=== PATIENT | female | born 1930 | race Caucasian/White ===

== ENCOUNTER 2018-10-08 08:54 | Emergency (ER) | payer MEDICARE, BC ==
[~2018-10-08] VITALS: Ht 162.6 cm; Wt 54.4 kg
--- OUTSIDE RECORDS SUMMARY | 2018-10-08 08:58 | XMS REPORT ---
Author Author [facility] Address Unknown Phone Unavailable Care Team Providers Care Robotics Mechanic Name Role Phone Unavailable Unavailable Payers Payer Name Policy Type Policy Number Effective Date Expiration Date Problems This patient has no known problems. Allergies, Adverse Reactions, Alerts Allergy Name Allergy Type Status Severity Reaction(s) Onset Date Inactive Date Treating Clinician Comments No Known Allergies DA Active U 2018-09-13 00:00:00 oxycodone DA Active IA 2018-08-03 00:00:00 meperidine DA Active IA 2018-08-03 00:00:00 No Known Drug Allergies DA Active U 2018-02-23 00:00:00 oxycodone DA Active IA 2018-02-10 00:00:00 meperidine DA Active IA 2018-02-10 00:00:00 No Known Allergies DA Active U 2018-02-10 00:00:00 Medications This patient has no known medications. Results Test Description Test Time Test Comments Text Results Atomic Results Result Comments - CT C-SPINE W/O CONTRAST 2018-10-05 06:18:00 Name: BARTOLOME ARGUELLES [facility] : 1930 Age/S: 88 / F Karen Emery Unit #: [id number] Loc: [place] [address] Phys: Roselia Amor MD Acct: [id number] Dis Date: Status: REG ER PHONE #: [phone] Exam Date: 10/05/2018 0600 FAX #: [phone] Reason: fall, neck pain EXAMS: CPT CODE: [id number] CT C-SPINE W/O CONTRAST 71900 EXAM: - CT HEAD/BRAIN W/O CONT, - CT C-SPINE W/O CONTRAST Location code:C3 HISTORY: 88 years -old Female with fall, neck pain TECHNIQUE: Axial CT images from the skull base to the vertex without intravenous contrast. Coronal and sagittal reformatted images were created from the data set. Axial CT images through the cervical spine were obtained without intravenous contrast. Sagittal and coronal reformatted images were created from the da ta set. One or more of the following dose reduction techniques were used: Automated exposure control, adjustment of the mA and/or kV according to patient size, and/or utilization of iterative reconstruction technique. COMPARISON: 09/20/2018 FINDINGS: CT BRAIN: Intracranial: No abnormal brain parenchymal density. No evidence of acute infarction, intracranial hemorrhage, mass or mass effect, or abnormal extra-axial fluid collection. The ventricular system and sulci are prominent compatible cerebral volume loss.There is mild diminished attenuation involving the periventricular and subcortical white matter compatible with mild microvascular chronic ischemic changes. Vascular calcifications are present. Bones: There is no evidence of acute displaced calvarial fracture. Sinuses: The visualized portions of the paranasal sinuses of significant opacification.The mastoid air cells are clear. Orbits/Soft Tissues: The visualized orbits show no significant abnormalities. The visualized soft tissues are unremarkable. CT CERVICAL SPINE: Bones: PAGE 1 Signed Report (CONTINUED) Name: BARTOLOME ARGUELLES [facility] : 1930 Age/S: 88 / F [address] [facility] Unit #: [id number] Loc: [place] [address] Phys: Roselia Amor MD Acct: [id number] Dis Date: Status: REG ER PHONE #: [phone] Exam Date: 10/05/2018 0600 FAX #: [phone] Reason: fall, neck pain EXAMS: CPT CODE: [id number] CT C-SPINE W/O CONTRAST 44050 <Continued> No evidence of acute fracture or subluxation. There is cervical straightening. Vertebral heights are maintained. No aggressive osseous lesions are identified. 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 Soft Tissue/Other: No significant abnormalities in the soft tissue of the neck. IMPRESSION: 1. Cerebral volume loss and microvascular chronic white matter ischemic changes. No intracranial hemorrhage. 2. Cervical straightening and multilevel degenerative changes of the cervical spine. No acute fracture or other acute osseous abnormality. at 0618 Reported and signed by: Pedro Pablo Sweeney MD CC: Roselia Amor MD Technologist:BHARATH Weaver ATMAR, RT CTDI: DLP: Trnscb Date/Time: 10/05/2018 (617) [email or web address] Orig Print D/T: S: 10/05/2018 (621) PAGE 2 Signed Report - CT HEAD/BRAIN W/O CONT 2018-10-05 06:18:00 Name: BARTOLOME ARGUELLES [facility] : 1930 Age/S: 88 / F [address] [facility] Unit #: [id number] Loc: [place] [address] Phys: Roselia Amor MD Acct: [id number] Dis Date: Status: REG ER PHONE #: [phone] Exam Date: 10/05/2018 0550 FAX #: [phone] Reason: fall, neck pain EXAMS: CPT CODE: [id number] CT HEAD/BRAIN W/O CONT 85815 EXAM: - CT HEAD/BRAIN W/O CONT, - CT C-SPINE W/O CONTRAST Location code:C3 HISTORY: 88 years -old Female with fall, neck pain TECHNIQUE: Axial CT images from the skull base to the vertex without intravenous contrast. Coronal and sagittal reformatted images were created from the data set. Axial CT images through the cervical spine were obtained without intravenous contrast. Sagittal and coronal reformatted images were created from the da ta set. One or more of the following dose reduction techniques were used: Automated exposure control, adjustment of the mA and/or kV according to patient size, and/or utilization of iterative reconstruction technique. COMPARISON: 09/20/2018 FINDINGS: CT BRAIN: Intracranial: No abnormal brain parenchymal density. No evidence of acute infarction, intracranial hemorrhage, mass or mass effect, or abnormal extra-axial fluid collection. The ventricular system and sulci are prominent compatible cerebral volume loss.There is mild diminished attenuation involving the periventricular and subcortical white matter compatible with mild microvascular chronic ischemic changes. Vascular calcifications are present. Bones: There is no evidence of acute displaced calvarial fracture. Sinuses: The visualized portions of the paranasal sinuses of significant opacification.The mastoid air cells are clear. Orbits/Soft Tissues: The visualized orbits show no significant abnormalities. The visualized soft tissues are unremarkable. CT CERVICAL SPINE: Bones: PAGE 1 Signed Report (CONTINUED) Name: BARTOLOME ARGUELLES [facility] : 1930 Age/S: 88 / F [address] [facility] Unit #: [id number] Loc: [place] [address] Phys: Roseila Amor MD Acct: [id number] Dis Date: Status: REG ER PHONE #: [phone] Exam Date: 10/05/2018 0550 FAX #: [phone] Reason: fall, neck pain EXAMS: CPT CODE: [id number] CT HEAD/BRAIN W/O CONT 47250 <Continued> No evidence of acute fracture or subluxation. There is cervical straightening. Vertebral heights are maintained. No aggressive osseous lesions are identified. 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 Soft Tissue/Other: No significant abnormalities in the soft tissue of the neck. IMPRESSION: 1. Cerebral volume loss and microvascular chronic white matter ischemic changes. No intracranial hemorrhage. 2. Cervical straightening and multilevel degenerative changes of the cervical spine. No acute fracture or other acute osseous abnormality. at 0618 Reported and signed by: Pedro Pablo Sweeney MD CC: Roselia Amor MD Technologist:RT SHAWN CTDI: DLP: Trnscb Date/Time: 10/05/2018 (617) [email or web address] Orig Print D/T: S: 10/05/2018 (621) PAGE 2 Signed Report GLUBED 2018-09-28 08:21:00 GLUBED (test code=GLUBED) 101 mg/dL 74-106 Performed by certified skoog machine operator at [facility] CBC W/AUTO [id number] 05:28:00* Test Item Value Reference Range Comments WHITE BLOOD CELL (test code=WBC) 8.7 K/mm3 4.5-12.5 RED BLOOD CELL (test code=RBC) 3.35 mill/mm3 3.7-5.2 HEMOGLOBIN (test code=HGB) 9.6 gram/dL 11.5-15.5 HEMATOCRIT (test code=HCT) 31.7 % 36.0-46.0 MEAN CELL VOLUME (test code=MCV) 94.6 fL 80-98 MEAN CELL HGB (test code=MCH) 28.7 picogram 27.0-33.0 MEAN CELL HGB CONCETRATION (test code=MCHC) 30.3 gram/dL 33.0-36.0 RED CELL DISTRIBUTION WIDTH (test code=RDW) 22.2 % 11.6-16.2 RED CELL DISTRIBUTION WIDTH SD (test code=RDW-SD) 75.0 fL 37.0-51.0 PLATELET COUNT (test code=PLT) 249 K/mm3 150-450 MEAN PLATELET VOLUME (test code=MPV) 9.4 fL 6.7-11.0 NEUTROPHIL % (test code=NT%) 83.6 % 39.0-69.0 IMMATURE GRANULOCYTE % (test code=IG%) 1.6 % 0.0-5.0 LYMPHOCYTE % (test code=LY%) 3.2 % 25.0-55.0 MONOCYTE % (test code=MO%) 10.2 % 0.0-10.0 EOSINOPHIL % (test code=EO%) 1.3 % 0.0-5.0 BASOPHIL % (test code=BA%) 0.1 % 0.0-1.0 NUCLEATED RBC % (test code=NRBC%) 0.0 % 0-0 NEUTROPHIL # (test code=NT#) 7.28 K/mm3 1.8-7.7 IMMATURE GRANULOCYTE # (test code=IG#) 0.14 x10 3/uL 0-0.03 LYMPHOCYTE # (test code=LY#) 0.28 K/mm3 1.0-5.0 MONOCYTE # (test code=MO#) 0.89 K/mm3 0-0.8 EOSINOPHIL # (test code=EO#) 0.11 K/mm3 0.0-0.5 BASOPHIL # (test code=BA#) 0.01 K/mm3 0.0-0.2 NUCLEATED RBC # (test code=NRBC#) 0.00 K/mm3 0.0-0.1 MANUAL DIFF REQUIRED (test code=MDIFF) NO, ONLY SCAN NEEDED DIFFERENTIAL [id number] 05:28:00* Test Item Value Reference Range Comments STAIN ACCEPTABILITY (test code=STN ACCEPTABLE) STAIN ACCEPTABLE POLYCHROMASIA (test code=POLC) 1+ POIKILOCYTOSIS (test code=POIK) 1+ ANISOCYTOSIS (test code=ANISO) 2+ MICROCYTOSIS (test code=MICR) 1+ MACROCYTOSIS (test code=MACR) 2+ OVALOCYTES (test code=OVAL) 1+ PLATELET ESTIMATE (test code=PLTEST) ADEQUATE PLATELET MORPHOLOGY (test code=PLTMORPH) NORMAL COMPREHENSIVE METABOLIC [id number] 05:06:00* Test Item Value Reference Range Comments SODIUM (test code=NA) 143 mmol/L 136-145 POTASSIUM (test code=K) 3.8 mmol/L 3.5-5.1 CHLORIDE (test code=CL) 108.0 mmol/L 98-107 CARBON DIOXIDE (test code=CO2) 28.0 mmol/L 21-32 ANION GAP (test code=GAP) 10.8 10-20 GLUCOSE (test code=GLU) 93 mg/dL 74-106 BLOOD UREA NITROGEN (test code=BUN) 38 mg/dL 7-18 GLOMERULAR FILTRATION RATE (test code=GFR) 47 mL/min >=60 Estimated GFR by using Modified MDRD formula.Chronic kidney disease is defined as either kidney damageor GFR <60 mL/min/1.73 m2 for >3 months. CREATININE (test code=CREAT) 1.10 mg/dL 0.55-1.02 Note change in reference range due to change in reagent. BUN/CREATININE RATIO (test code=BUN/CREA) 34.5 10-20 TOTAL PROTEIN (test code=PROT) 5.6 gram/dL 6.4-8.2 ALBUMIN (test code=ALB) 2.8 g/dL 3.4-5.0 GLOBULIN (test code=GLOB) 2.8 gram/dL 2.7-4.2 ALBUMIN/GLOBULIN RATIO (test code=A/G) 1.0 0.75-1.50 CALCIUM (test code=CA) 7.9 mg/dL 8.5-10.1 BILIRUBIN TOTAL (test code=BILT) 1.70 mg/dL 0.0-1.0 SGOT/AST (test code=AST) 15 IUnit/L 15-37 SGPT/ALT (test code=ALT) 17 IUnit/L 12-78 ALKALINE PHOSPHATASE TOTAL (test code=ALKP) 91 IUnit/L 45-117 Note change in reference range due to change in reagent. CBC W/AUTO [id number] 04:51:00* Test Item Value Reference Range Comments WHITE BLOOD CELL (test code=WBC) 8.7 K/mm3 4.5-12.5 RED BLOOD CELL (test code=RBC) 3.35 mill/mm3 3.7-5.2 HEMOGLOBIN (test code=HGB) 9.6 gram/dL 11.5-15.5 HEMATOCRIT (test code=HCT) 31.7 % 36.0-46.0 MEAN CELL VOLUME (test code=MCV) 94.6 fL 80-98 MEAN CELL HGB (test code=MCH) 28.7 picogram 27.0-33.0 MEAN CELL HGB CONCETRATION (test code=MCHC) 30.3 gram/dL 33.0-36.0 RED CELL DISTRIBUTION WIDTH (test code=RDW) 22.2 % 11.6-16.2 RED CELL DISTRIBUTION WIDTH SD (test code=RDW-SD) 75.0 fL 37.0-51.0 PLATELET COUNT (test code=PLT) 249 K/mm3 150-450 MEAN PLATELET VOLUME (test code=MPV) 9.4 fL 6.7-11.0 NEUTROPHIL % (test code=NT%) 83.6 % 39.0-69.0 IMMATURE GRANULOCYTE % (test code=IG%) 1.6 % 0.0-5.0 LYMPHOCYTE % (test code=LY%) 3.2 % 25.0-55.0 MONOCYTE % (test code=MO%) 10.2 % 0.0-10.0 EOSINOPHIL % (test code=EO%) 1.3 % 0.0-5.0 BASOPHIL % (test code=BA%) 0.1 % 0.0-1.0 NUCLEATED RBC % (test code=NRBC%) 0.0 % 0-0 NEUTROPHIL # (test code=NT#) 7.28 K/mm3 1.8-7.7 IMMATURE GRANULOCYTE # (test code=IG#) 0.14 x10 3/uL 0-0.03 LYMPHOCYTE # (test code=LY#) 0.28 K/mm3 1.0-5.0 MONOCYTE # (test code=MO#) 0.89 K/mm3 0-0.8 EOSINOPHIL # (test code=EO#) 0.11 K/mm3 0.0-0.5 BASOPHIL # (test code=BA#) 0.01 K/mm3 0.0-0.2 NUCLEATED RBC # (test code=NRBC#) 0.00 K/mm3 0.0-0.1 MANUAL DIFF REQUIRED (test code=MDIFF) NO, ONLY SCAN NEEDED DIFFERENTIAL [id number] 04:51:00* Test Item Value Reference Range Comments STAIN ACCEPTABILITY (test code=STN ACCEPTABLE) CABOT RINGS (test code=CAB) MORPHOLOGY COMMENT (test code=MOC) PLATELET ESTIMATE (test code=PLTEST) PLATELET MORPHOLOGY (test code=PLTMORPH) CBC W/AUTO [id number] 04:51:00* Test Item Value Reference Range Comments WHITE BLOOD CELL (test code=WBC) 8.7 K/mm3 4.5-12.5 RED BLOOD CELL (test code=RBC) 3.35 mill/mm3 3.7-5.2 HEMOGLOBIN (test code=HGB) 9.6 gram/dL 11.5-15.5 HEMATOCRIT (test code=HCT) 31.7 % 36.0-46.0 MEAN CELL VOLUME (test code=MCV) 94.6 fL 80-98 MEAN CELL HGB (test code=MCH) 28.7 picogram 27.0-33.0 MEAN CELL HGB CONCETRATION (test code=MCHC) 30.3 gram/dL 33.0-36.0 RED CELL DISTRIBUTION WIDTH (test code=RDW) 22.2 % 11.6-16.2 RED CELL DISTRIBUTION WIDTH SD (test code=RDW-SD) 75.0 fL 37.0-51.0 PLATELET COUNT (test code=PLT) 249 K/mm3 150-450 MEAN PLATELET VOLUME (test code=MPV) 9.4 fL 6.7-11.0 NEUTROPHIL % (test code=NT%) 83.6 % 39.0-69.0 IMMATURE GRANULOCYTE % (test code=IG%) 1.6 % 0.0-5.0 LYMPHOCYTE % (test code=LY%) 3.2 % 25.0-55.0 MONOCYTE % (test code=MO%) 10.2 % 0.0-10.0 EOSINOPHIL % (test code=EO%) 1.3 % 0.0-5.0 BASOPHIL % (test code=BA%) 0.1 % 0.0-1.0 NUCLEATED RBC % (test code=NRBC%) 0.0 % 0-0 NEUTROPHIL # (test code=NT#) 7.28 K/mm3 1.8-7.7 IMMATURE GRANULOCYTE # (test code=IG#) 0.14 x10 3/uL 0-0.03 LYMPHOCYTE # (test code=LY#) 0.28 K/mm3 1.0-5.0 MONOCYTE # (test code=MO#) 0.89 K/mm3 0-0.8 EOSINOPHIL # (test code=EO#) 0.11 K/mm3 0.0-0.5 BASOPHIL # (test code=BA#) 0.01 K/mm3 0.0-0.2 NUCLEATED RBC # (test code=NRBC#) 0.00 K/mm3 0.0-0.1 MANUAL DIFF REQUIRED (test code=MDIFF) NO, ONLY SCAN NEEDED DIFFERENTIAL [id number] 04:51:00* Test Item Value Reference Range Comments STAIN ACCEPTABILITY (test code=STN ACCEPTABLE) CABOT RINGS (test code=CAB) MORPHOLOGY COMMENT (test code=MOC) PLATELET ESTIMATE (test code=PLTEST) PLATELET MORPHOLOGY (test code=PLTMORPH) CBC W/AUTO [id number] 04:51:00* Test Item Value Reference Range Comments WHITE BLOOD CELL (test code=WBC) 8.7 K/mm3 4.5-12.5 RED BLOOD CELL (test code=RBC) 3.35 mill/mm3 3.7-5.2 HEMOGLOBIN (test code=HGB) 9.6 gram/dL 11.5-15.5 HEMATOCRIT (test code=HCT) 31.7 % 36.0-46.0 MEAN CELL VOLUME (test code=MCV) 94.6 fL 80-98 MEAN CELL HGB (test code=MCH) 28.7 picogram 27.0-33.0 MEAN CELL HGB CONCETRATION (test code=MCHC) 30.3 gram/dL 33.0-36.0 RED CELL DISTRIBUTION WIDTH (test code=RDW) 22.2 % 11.6-16.2 RED CELL DISTRIBUTION WIDTH SD (test code=RDW-SD) 75.0 fL 37.0-51.0 PLATELET COUNT (test code=PLT) 249 K/mm3 150-450 MEAN PLATELET VOLUME (test code=MPV) 9.4 fL 6.7-11.0 NEUTROPHIL % (test code=NT%) 83.6 % 39.0-69.0 IMMATURE GRANULOCYTE % (test code=IG%) 1.6 % 0.0-5.0 LYMPHOCYTE % (test code=LY%) 3.2 % 25.0-55.0 MONOCYTE % (test code=MO%) 10.2 % 0.0-10.0 EOSINOPHIL % (test code=EO%) 1.3 % 0.0-5.0 BASOPHIL % (test code=BA%) 0.1 % 0.0-1.0 NUCLEATED RBC % (test code=NRBC%) 0.0 % 0-0 NEUTROPHIL # (test code=NT#) 7.28 K/mm3 1.8-7.7 IMMATURE GRANULOCYTE # (test code=IG#) 0.14 x10 3/uL 0-0.03 LYMPHOCYTE # (test code=LY#) 0.28 K/mm3 1.0-5.0 MONOCYTE # (test code=MO#) 0.89 K/mm3 0-0.8 EOSINOPHIL # (test code=EO#) 0.11 K/mm3 0.0-0.5 BASOPHIL # (test code=BA#) 0.01 K/mm3 0.0-0.2 NUCLEATED RBC # (test code=NRBC#) 0.00 K/mm3 0.0-0.1 MANUAL DIFF REQUIRED (test code=MDIFF) NO, ONLY SCAN NEEDED DIFFERENTIAL [id number] 04:51:00* Test Item Value Reference Range Comments STAIN ACCEPTABILITY (test code=STN ACCEPTABLE) MORPHOLOGY COMMENT (test code=MOC) PLATELET ESTIMATE (test code=PLTEST) PLATELET MORPHOLOGY (test code=PLTMORPH) CBC W/AUTO [id number] 04:51:00* Test Item Value Reference Range Comments WHITE BLOOD CELL (test code=WBC) 8.7 K/mm3 4.5-12.5 RED BLOOD CELL (test code=RBC) 3.35 mill/mm3 3.7-5.2 HEMOGLOBIN (test code=HGB) 9.6 gram/dL 11.5-15.5 HEMATOCRIT (test code=HCT) 31.7 % 36.0-46.0 MEAN CELL VOLUME (test code=MCV) 94.6 fL 80-98 MEAN CELL HGB (test code=MCH) 28.7 picogram 27.0-33.0 MEAN CELL HGB CONCETRATION (test code=MCHC) 30.3 gram/dL 33.0-36.0 RED CELL DISTRIBUTION WIDTH (test code=RDW) 22.2 % 11.6-16.2 RED CELL DISTRIBUTION WIDTH SD (test code=RDW-SD) 75.0 fL 37.0-51.0 PLATELET COUNT (test code=PLT) 249 K/mm3 150-450 MEAN PLATELET VOLUME (test code=MPV) 9.4 fL 6.7-11.0 NEUTROPHIL % (test code=NT%) 83.6 % 39.0-69.0 IMMATURE GRANULOCYTE % (test code=IG%) 1.6 % 0.0-5.0 LYMPHOCYTE % (test code=LY%) 3.2 % 25.0-55.0 MONOCYTE % (test code=MO%) 10.2 % 0.0-10.0 EOSINOPHIL % (test code=EO%) 1.3 % 0.0-5.0 BASOPHIL % (test code=BA%) 0.1 % 0.0-1.0 NUCLEATED RBC % (test code=NRBC%) 0.0 % 0-0 NEUTROPHIL # (test code=NT#) 7.28 K/mm3 1.8-7.7 IMMATURE GRANULOCYTE # (test code=IG#) 0.14 x10 3/uL 0-0.03 LYMPHOCYTE # (test code=LY#) 0.28 K/mm3 1.0-5.0 MONOCYTE # (test code=MO#) 0.89 K/mm3 0-0.8 EOSINOPHIL # (test code=EO#) 0.11 K/mm3 0.0-0.5 BASOPHIL # (test code=BA#) 0.01 K/mm3 0.0-0.2 NUCLEATED RBC # (test code=NRBC#) 0.00 K/mm3 0.0-0.1 MANUAL DIFF REQUIRED (test code=MDIFF) NO, ONLY SCAN NEEDED DIFFERENTIAL [id number] 04:51:00* Test Item Value Reference Range Comments STAIN ACCEPTABILITY (test code=STN ACCEPTABLE) CABOT RINGS (test code=CAB) MORPHOLOGY COMMENT (test code=MOC) PLATELET ESTIMATE (test code=PLTEST) PLATELET MORPHOLOGY (test code=PLTMORPH) [id number] 22:06:00* Test Item Value Reference Range Comments GLUBED (test code=GLUBED) 97 mg/dL 74-106 Performed by certified skoog machine operator at [facility] CBC W/AUTO [id number] 08:12:00* Test Item Value Reference Range Comments WHITE BLOOD CELL (test code=WBC) 6.9 K/mm3 4.5-12.5 RED BLOOD CELL (test code=RBC) 3.11 mill/mm3 3.7-5.2 HEMOGLOBIN (test code=HGB) 9.0 gram/dL 11.5-15.5 HEMATOCRIT (test code=HCT) 29.2 % 36.0-46.0 MEAN CELL VOLUME (test code=MCV) 93.9 fL 80-98 MEAN CELL HGB (test code=MCH) 28.9 picogram 27.0-33.0 MEAN CELL HGB CONCETRATION (test code=MCHC) 30.8 gram/dL 33.0-36.0 RED CELL DISTRIBUTION WIDTH (test code=RDW) 21.5 % 11.6-16.2 RED CELL DISTRIBUTION WIDTH SD (test code=RDW-SD) 70.0 fL 37.0-51.0 PLATELET COUNT (test code=PLT) 222 K/mm3 150-450 MEAN PLATELET VOLUME (test code=MPV) 10.3 fL 6.7-11.0 NEUTROPHIL % (test code=NT%) 81.5 % 39.0-69.0 IMMATURE GRANULOCYTE % (test code=IG%) 2.6 % 0.0-5.0 LYMPHOCYTE % (test code=LY%) 3.6 % 25.0-55.0 MONOCYTE % (test code=MO%) 9.4 % 0.0-10.0 EOSINOPHIL % (test code=EO%) 2.6 % 0.0-5.0 BASOPHIL % (test code=BA%) 0.3 % 0.0-1.0 NUCLEATED RBC % (test code=NRBC%) 0.4 % 0-0 NEUTROPHIL # (test code=NT#) 5.65 K/mm3 1.8-7.7 IMMATURE GRANULOCYTE # (test code=IG#) 0.18 x10 3/uL 0-0.03 LYMPHOCYTE # (test code=LY#) 0.25 K/mm3 1.0-5.0 MONOCYTE # (test code=MO#) 0.65 K/mm3 0-0.8 EOSINOPHIL # (test code=EO#) 0.18 K/mm3 0.0-0.5 BASOPHIL # (test code=BA#) 0.02 K/mm3 0.0-0.2 NUCLEATED RBC # (test code=NRBC#) 0.03 K/mm3 0.0-0.1 MANUAL DIFF REQUIRED (test code=MDIFF) NO, ONLY SCAN NEEDED DIFFERENTIAL [id number] 08:12:00* Test Item Value Reference Range Comments STAIN ACCEPTABILITY (test code=STN ACCEPTABLE) STAIN ACCEPTABLE HYPOCHROMIA (test code=HYPO) 1+ POIKILOCYTOSIS (test code=POIK) 2+ ANISOCYTOSIS (test code=ANISO) 2+ ELLIPTOCYTES (test code=ELL) 1+ SCHISTOCYTES (test code=DEAN) 1+ PLATELET ESTIMATE (test code=PLTEST) ADEQUATE PLATELET MORPHOLOGY (test code=PLTMORPH) NORMAL BASIC METABOLIC [id number] 07:35:00* Test Item Value Reference Range Comments SODIUM (test code=NA) 138 mmol/L 136-145 POTASSIUM (test code=K) 4.4 mmol/L 3.5-5.1 CHLORIDE (test code=CL) 107.0 mmol/L 98-107 CARBON DIOXIDE (test code=CO2) 26.0 mmol/L 21-32 ANION GAP (test code=GAP) 9.4 10-20 GLUCOSE (test code=GLU) 85 mg/dL 74-106 BLOOD UREA NITROGEN (test code=BUN) 37 mg/dL 7-18 GLOMERULAR FILTRATION RATE (test code=GFR) 52 mL/min >=60 Estimated GFR by using Modified MDRD formula.Chronic kidney disease is defined as either kidney damageor GFR <60 mL/min/1.73 m2 for >3 months. CREATININE (test code=CREAT) 1.00 mg/dL 0.55-1.02 Note change in reference range due to change in reagent. BUN/CREATININE RATIO (test code=BUN/CREA) 37.0 10-20 CALCIUM (test code=CA) 7.8 mg/dL 8.5-10.1 CBC W/AUTO [id number] 07:28:00* Test Item Value Reference Range Comments WHITE BLOOD CELL (test code=WBC) 6.9 K/mm3 4.5-12.5 RED BLOOD CELL (test code=RBC) 3.11 mill/mm3 3.7-5.2 HEMOGLOBIN (test code=HGB) 9.0 gram/dL 11.5-15.5 HEMATOCRIT (test code=HCT) 29.2 % 36.0-46.0 MEAN CELL VOLUME (test code=MCV) 93.9 fL 80-98 MEAN CELL HGB (test code=MCH) 28.9 picogram 27.0-33.0 MEAN CELL HGB CONCETRATION (test code=MCHC) 30.8 gram/dL 33.0-36.0 RED CELL DISTRIBUTION WIDTH (test code=RDW) 21.5 % 11.6-16.2 RED CELL DISTRIBUTION WIDTH SD (test code=RDW-SD) 70.0 fL 37.0-51.0 PLATELET COUNT (test code=PLT) 222 K/mm3 150-450 MEAN PLATELET VOLUME (test code=MPV) 10.3 fL 6.7-11.0 NEUTROPHIL % (test code=NT%) 81.5 % 39.0-69.0 IMMATURE GRANULOCYTE % (test code=IG%) 2.6 % 0.0-5.0 LYMPHOCYTE % (test code=LY%) 3.6 % 25.0-55.0 MONOCYTE % (test code=MO%) 9.4 % 0.0-10.0 EOSINOPHIL % (test code=EO%) 2.6 % 0.0-5.0 BASOPHIL % (test code=BA%) 0.3 % 0.0-1.0 NUCLEATED RBC % (test code=NRBC%) 0.4 % 0-0 NEUTROPHIL # (test code=NT#) 5.65 K/mm3 1.8-7.7 IMMATURE GRANULOCYTE # (test code=IG#) 0.18 x10 3/uL 0-0.03 LYMPHOCYTE # (test code=LY#) 0.25 K/mm3 1.0-5.0 MONOCYTE # (test code=MO#) 0.65 K/mm3 0-0.8 EOSINOPHIL # (test code=EO#) 0.18 K/mm3 0.0-0.5 BASOPHIL # (test code=BA#) 0.02 K/mm3 0.0-0.2 NUCLEATED RBC # (test code=NRBC#) 0.03 K/mm3 0.0-0.1 MANUAL DIFF REQUIRED (test code=MDIFF) NO, ONLY SCAN NEEDED DIFFERENTIAL [id number] 07:28:00* Test Item Value Reference Range Comments STAIN ACCEPTABILITY (test code=STN ACCEPTABLE) CABOT RINGS (test code=CAB) MORPHOLOGY COMMENT (test code=MOC) PLATELET ESTIMATE (test code=PLTEST) PLATELET MORPHOLOGY (test code=PLTMORPH) CBC W/AUTO [id number] 07:28:00* Test Item Value Reference Range Comments WHITE BLOOD CELL (test code=WBC) 6.9 K/mm3 4.5-12.5 RED BLOOD CELL (test code=RBC) 3.11 mill/mm3 3.7-5.2 HEMOGLOBIN (test code=HGB) 9.0 gram/dL 11.5-15.5 HEMATOCRIT (test code=HCT) 29.2 % 36.0-46.0 MEAN CELL VOLUME (test code=MCV) 93.9 fL 80-98 MEAN CELL HGB (test code=MCH) 28.9 picogram 27.0-33.0 MEAN CELL HGB CONCETRATION (test code=MCHC) 30.8 gram/dL 33.0-36.0 RED CELL DISTRIBUTION WIDTH (test code=RDW) 21.5 % 11.6-16.2 RED CELL DISTRIBUTION WIDTH SD (test code=RDW-SD) 70.0 fL 37.0-51.0 PLATELET COUNT (test code=PLT) 222 K/mm3 150-450 MEAN PLATELET VOLUME (test code=MPV) 10.3 fL 6.7-11.0 NEUTROPHIL % (test code=NT%) 81.5 % 39.0-69.0 IMMATURE GRANULOCYTE % (test code=IG%) 2.6 % 0.0-5.0 LYMPHOCYTE % (test code=LY%) 3.6 % 25.0-55.0 MONOCYTE % (test code=MO%) 9.4 % 0.0-10.0 EOSINOPHIL % (test code=EO%) 2.6 % 0.0-5.0 BASOPHIL % (test code=BA%) 0.3 % 0.0-1.0 NUCLEATED RBC % (test code=NRBC%) 0.4 % 0-0 NEUTROPHIL # (test code=NT#) 5.65 K/mm3 1.8-7.7 IMMATURE GRANULOCYTE # (test code=IG#) 0.18 x10 3/uL 0-0.03 LYMPHOCYTE # (test code=LY#) 0.25 K/mm3 1.0-5.0 MONOCYTE # (test code=MO#) 0.65 K/mm3 0-0.8 EOSINOPHIL # (test code=EO#) 0.18 K/mm3 0.0-0.5 BASOPHIL # (test code=BA#) 0.02 K/mm3 0.0-0.2 NUCLEATED RBC # (test code=NRBC#) 0.03 K/mm3 0.0-0.1 MANUAL DIFF REQUIRED (test code=MDIFF) NO, ONLY SCAN NEEDED DIFFERENTIAL [id number] 07:28:00* Test Item Value Reference Range Comments STAIN ACCEPTABILITY (test code=STN ACCEPTABLE) CABOT RINGS (test code=CAB) MORPHOLOGY COMMENT (test code=MOC) PLATELET ESTIMATE (test code=PLTEST) PLATELET MORPHOLOGY (test code=PLTMORPH) CBC W/AUTO [id number] 07:28:00* Test Item Value Reference Range Comments WHITE BLOOD CELL (test code=WBC) 6.9 K/mm3 4.5-12.5 RED BLOOD CELL (test code=RBC) 3.11 mill/mm3 3.7-5.2 HEMOGLOBIN (test code=HGB) 9.0 gram/dL 11.5-15.5 HEMATOCRIT (test code=HCT) 29.2 % 36.0-46.0 MEAN CELL VOLUME (test code=MCV) 93.9 fL 80-98 MEAN CELL HGB (test code=MCH) 28.9 picogram 27.0-33.0 MEAN CELL HGB CONCETRATION (test code=MCHC) 30.8 gram/dL 33.0-36.0 RED CELL DISTRIBUTION WIDTH (test code=RDW) 21.5 % 11.6-16.2 RED CELL DISTRIBUTION WIDTH SD (test code=RDW-SD) 70.0 fL 37.0-51.0 PLATELET COUNT (test code=PLT) 222 K/mm3 150-450 MEAN PLATELET VOLUME (test code=MPV) 10.3 fL 6.7-11.0 NEUTROPHIL % (test code=NT%) 81.5 % 39.0-69.0 IMMATURE GRANULOCYTE % (test code=IG%) 2.6 % 0.0-5.0 LYMPHOCYTE % (test code=LY%) 3.6 % 25.0-55.0 MONOCYTE % (test code=MO%) 9.4 % 0.0-10.0 EOSINOPHIL % (test code=EO%) 2.6 % 0.0-5.0 BASOPHIL % (test code=BA%) 0.3 % 0.0-1.0 NUCLEATED RBC % (test code=NRBC%) 0.4 % 0-0 NEUTROPHIL # (test code=NT#) 5.65 K/mm3 1.8-7.7 IMMATURE GRANULOCYTE # (test code=IG#) 0.18 x10 3/uL 0-0.03 LYMPHOCYTE # (test code=LY#) 0.25 K/mm3 1.0-5.0 MONOCYTE # (test code=MO#) 0.65 K/mm3 0-0.8 EOSINOPHIL # (test code=EO#) 0.18 K/mm3 0.0-0.5 BASOPHIL # (test code=BA#) 0.02 K/mm3 0.0-0.2 NUCLEATED RBC # (test code=NRBC#) 0.03 K/mm3 0.0-0.1 MANUAL DIFF REQUIRED (test code=MDIFF) NO, ONLY SCAN NEEDED DIFFERENTIAL [id number] 07:28:00* Test Item Value Reference Range Comments STAIN ACCEPTABILITY (test code=STN ACCEPTABLE) MORPHOLOGY COMMENT (test code=MOC) PLATELET ESTIMATE (test code=PLTEST) PLATELET MORPHOLOGY (test code=PLTMORPH) CBC W/AUTO [id number] 07:28:00* Test Item Value Reference Range Comments WHITE BLOOD CELL (test code=WBC) 6.9 K/mm3 4.5-12.5 RED BLOOD CELL (test code=RBC) 3.11 mill/mm3 3.7-5.2 HEMOGLOBIN (test code=HGB) 9.0 gram/dL 11.5-15.5 HEMATOCRIT (test code=HCT) 29.2 % 36.0-46.0 MEAN CELL VOLUME (test code=MCV) 93.9 fL 80-98 MEAN CELL HGB (test code=MCH) 28.9 picogram 27.0-33.0 MEAN CELL HGB CONCETRATION (test code=MCHC) 30.8 gram/dL 33.0-36.0 RED CELL DISTRIBUTION WIDTH (test code=RDW) 21.5 % 11.6-16.2 RED CELL DISTRIBUTION WIDTH SD (test code=RDW-SD) 70.0 fL 37.0-51.0 PLATELET COUNT (test code=PLT) 222 K/mm3 150-450 MEAN PLATELET VOLUME (test code=MPV) 10.3 fL 6.7-11.0 NEUTROPHIL % (test code=NT%) 81.5 % 39.0-69.0 IMMATURE GRANULOCYTE % (test code=IG%) 2.6 % 0.0-5.0 LYMPHOCYTE % (test code=LY%) 3.6 % 25.0-55.0 MONOCYTE % (test code=MO%) 9.4 % 0.0-10.0 EOSINOPHIL % (test code=EO%) 2.6 % 0.0-5.0 BASOPHIL % (test code=BA%) 0.3 % 0.0-1.0 NUCLEATED RBC % (test code=NRBC%) 0.4 % 0-0 NEUTROPHIL # (test code=NT#) 5.65 K/mm3 1.8-7.7 IMMATURE GRANULOCYTE # (test code=IG#) 0.18 x10 3/uL 0-0.03 LYMPHOCYTE # (test code=LY#) 0.25 K/mm3 1.0-5.0 MONOCYTE # (test code=MO#) 0.65 K/mm3 0-0.8 EOSINOPHIL # (test code=EO#) 0.18 K/mm3 0.0-0.5 BASOPHIL # (test code=BA#) 0.02 K/mm3 0.0-0.2 NUCLEATED RBC # (test code=NRBC#) 0.03 K/mm3 0.0-0.1 MANUAL DIFF REQUIRED (test code=MDIFF) NO, ONLY SCAN NEEDED DIFFERENTIAL [id number] 07:28:00* Test Item Value Reference Range Comments STAIN ACCEPTABILITY (test code=STN ACCEPTABLE) CABOT RINGS (test code=CAB) MORPHOLOGY COMMENT (test code=MOC) PLATELET ESTIMATE (test code=PLTEST) PLATELET MORPHOLOGY (test code=PLTMORPH) BASIC METABOLIC [id number] 07:24:00* Test Item Value Reference Range Comments SODIUM (test code=NA) 138 mmol/L 136-145 POTASSIUM (test code=K) 4.4 mmol/L 3.5-5.1 CHLORIDE (test code=CL) 107.0 mmol/L 98-107 CARBON DIOXIDE (test code=CO2) mmol/L 21-32 ANION GAP (test code=GAP) 10-20 GLUCOSE (test code=GLU) mg/dL 74-106 BLOOD UREA NITROGEN (test code=BUN) mg/dL 7-18 GLOMERULAR FILTRATION RATE (test code=GFR) mL/min >=60 CREATININE (test code=CREAT) mg/dL 0.55-1.02 BUN/CREATININE RATIO (test code=BUN/CREA) 10-20 CALCIUM (test code=CA) mg/dL 8.5-10.1 [id number] 23:34:00* Test Item Value Reference Range Comments GLUBED (test code=GLUBED) 110 mg/dL 74-106 Performed by certified skoog machine operator at [facility] - XR CHEST 1 [id number] 09:13:00 FAX: Dillon Baker MD [phone] [place]: B St: ADM FAX: Sena Sewell MD [phone] Name: BARTOLOME ARGUELLES [facility] : 1930 Age/S: 88/F [address] [facility] Unit #: [id number] Loc: V.[address] [place] [address] Phys: Sena Sewell MD Acct: [id number] Dis Date: Status: ADM IN PHONE #: [phone] Exam Date: 09/25/2018 0810 FAX #: [phone] Reason: wheezing EXAMS: CPT CODE: [id number] XR CHEST 1 V 25900 TECHNIQUE: Single view chest COMPARISON: Chest x-ray 09/23/2018 FINDINGS: Feeding tube extends to the stomach. Left subclavian pacer wires in place. Mild congestion. Increased interstitial markings. No pneumothorax. Cardiac silhouette is enlarged. Overall since old chest x-ray 09/23/2018 slight increased congestion. IMPRESSION: Overall since old chest x-ray 09/23/2018 slight increased congestion. at 0913 Reported and signed by: Richard Ordoñez M.D. CC: Dillon Baker MD; Sena Sewell MD Technologist: RT ENRIQUE(R) Trnscrd Date/Time/By: 09/25/2018 (912) : By: Karly Orig Print D/T: S: 09/25/2018 (9116) PAGE 1 Signed Report CBC W/AUTO [id number] 09:03:00* Test Item Value Reference Range Comments WHITE BLOOD CELL (test code=WBC) 13.2 K/mm3 4.5-12.5 RED BLOOD CELL (test code=RBC) 3.35 mill/mm3 3.7-5.2 HEMOGLOBIN (test code=HGB) 9.7 gram/dL 11.5-15.5 HEMATOCRIT (test code=HCT) 30.9 % 36.0-46.0 MEAN CELL VOLUME (test code=MCV) 92.2 fL 80-98 MEAN CELL HGB (test code=MCH) 29.0 picogram 27.0-33.0 MEAN CELL HGB CONCETRATION (test code=MCHC) 31.4 gram/dL 33.0-36.0 RED CELL DISTRIBUTION WIDTH (test code=RDW) 21.3 % 11.6-16.2 RED CELL DISTRIBUTION WIDTH SD (test code=RDW-SD) 66.6 fL 37.0-51.0 PLATELET COUNT (test code=PLT) 248 K/mm3 150-450 MEAN PLATELET VOLUME (test code=MPV) 11.3 fL 6.7-11.0 NEUTROPHIL % (test code=NT%) 83.7 % 39.0-69.0 IMMATURE GRANULOCYTE % (test code=IG%) 3.2 % 0.0-5.0 LYMPHOCYTE % (test code=LY%) 2.3 % 25.0-55.0 MONOCYTE % (test code=MO%) 8.5 % 0.0-10.0 EOSINOPHIL % (test code=EO%) 2.1 % 0.0-5.0 BASOPHIL % (test code=BA%) 0.2 % 0.0-1.0 NUCLEATED RBC % (test code=NRBC%) 0.5 % 0-0 NEUTROPHIL # (test code=NT#) 11.01 K/mm3 1.8-7.7 IMMATURE GRANULOCYTE # (test code=IG#) 0.42 x10 3/uL 0-0.03 LYMPHOCYTE # (test code=LY#) 0.30 K/mm3 1.0-5.0 MONOCYTE # (test code=MO#) 1.12 K/mm3 0-0.8 EOSINOPHIL # (test code=EO#) 0.27 K/mm3 0.0-0.5 BASOPHIL # (test code=BA#) 0.03 K/mm3 0.0-0.2 NUCLEATED RBC # (test code=NRBC#) 0.07 K/mm3 0.0-0.1 MANUAL DIFF REQUIRED (test code=MDIFF) NO, ONLY SCAN NEEDED DIFFERENTIAL [id number] 09:03:00* Test Item Value Reference Range Comments STAIN ACCEPTABILITY (test code=STN ACCEPTABLE) STAIN ACCEPTABLE POLYCHROMASIA (test code=POLC) 1+ POIKILOCYTOSIS (test code=POIK) 1+ ANISOCYTOSIS (test code=ANISO) 2+ MICROCYTOSIS (test code=MICR) 1+ PLATELET ESTIMATE (test code=PLTEST) ADEQUATE PLATELET MORPHOLOGY (test code=PLTMORPH) SIZE VARIABLE BASIC METABOLIC [id number] 08:59:00* Test Item Value Reference Range Comments SODIUM (test code=NA) 136 mmol/L 136-145 POTASSIUM (test code=K) 4.7 mmol/L 3.5-5.1 CHLORIDE (test code=CL) 105.0 mmol/L 98-107 CARBON DIOXIDE (test code=CO2) 24.0 mmol/L 21-32 ANION GAP (test code=GAP) 11.7 10-20 GLUCOSE (test code=GLU) 109 mg/dL 74-106 BLOOD UREA NITROGEN (test code=BUN) 40 mg/dL 7-18 GLOMERULAR FILTRATION RATE (test code=GFR) 42 mL/min >=60 Estimated GFR by using Modified MDRD formula.Chronic kidney disease is defined as either kidney damageor GFR <60 mL/min/1.73 m2 for >3 months. CREATININE (test code=CREAT) 1.20 mg/dL 0.55-1.02 Note change in reference range due to change in reagent. BUN/CREATININE RATIO (test code=BUN/CREA) 33.3 10-20 CALCIUM (test code=CA) 8.1 mg/dL 8.5-10.1 [id number] 08:59:00* Test Item Value Reference Range Comments MAGNESIUM (test code=MAG) 2.5 mg/dL 1.8-2.4 CBC W/AUTO [id number] 08:29:00* Test Item Value Reference Range Comments WHITE BLOOD CELL (test code=WBC) 13.2 K/mm3 4.5-12.5 RED BLOOD CELL (test code=RBC) 3.35 mill/mm3 3.7-5.2 HEMOGLOBIN (test code=HGB) 9.7 gram/dL 11.5-15.5 HEMATOCRIT (test code=HCT) 30.9 % 36.0-46.0 MEAN CELL VOLUME (test code=MCV) 92.2 fL 80-98 MEAN CELL HGB (test code=MCH) 29.0 picogram 27.0-33.0 MEAN CELL HGB CONCETRATION (test code=MCHC) 31.4 gram/dL 33.0-36.0 RED CELL DISTRIBUTION WIDTH (test code=RDW) 21.3 % 11.6-16.2 RED CELL DISTRIBUTION WIDTH SD (test code=RDW-SD) 66.6 fL 37.0-51.0 PLATELET COUNT (test code=PLT) 248 K/mm3 150-450 MEAN PLATELET VOLUME (test code=MPV) 11.3 fL 6.7-11.0 NEUTROPHIL % (test code=NT%) 83.7 % 39.0-69.0 IMMATURE GRANULOCYTE % (test code=IG%) 3.2 % 0.0-5.0 LYMPHOCYTE % (test code=LY%) 2.3 % 25.0-55.0 MONOCYTE % (test code=MO%) 8.5 % 0.0-10.0 EOSINOPHIL % (test code=EO%) 2.1 % 0.0-5.0 BASOPHIL % (test code=BA%) 0.2 % 0.0-1.0 NUCLEATED RBC % (test code=NRBC%) 0.5 % 0-0 NEUTROPHIL # (test code=NT#) 11.01 K/mm3 1.8-7.7 IMMATURE GRANULOCYTE # (test code=IG#) 0.42 x10 3/uL 0-0.03 LYMPHOCYTE # (test code=LY#) 0.30 K/mm3 1.0-5.0 MONOCYTE # (test code=MO#) 1.12 K/mm3 0-0.8 EOSINOPHIL # (test code=EO#) 0.27 K/mm3 0.0-0.5 BASOPHIL # (test code=BA#) 0.03 K/mm3 0.0-0.2 NUCLEATED RBC # (test code=NRBC#) 0.07 K/mm3 0.0-0.1 MANUAL DIFF REQUIRED (test code=MDIFF) NO, ONLY SCAN NEEDED DIFFERENTIAL [id number] 08:29:00* Test Item Value Reference Range Comments STAIN ACCEPTABILITY (test code=STN ACCEPTABLE) CABOT RINGS (test code=CAB) MORPHOLOGY COMMENT (test code=MOC) PLATELET ESTIMATE (test code=PLTEST) PLATELET MORPHOLOGY (test code=PLTMORPH) CBC W/AUTO [id number] 08:29:00* Test Item Value Reference Range Comments WHITE BLOOD CELL (test code=WBC) 13.2 K/mm3 4.5-12.5 RED BLOOD CELL (test code=RBC) 3.35 mill/mm3 3.7-5.2 HEMOGLOBIN (test code=HGB) 9.7 gram/dL 11.5-15.5 HEMATOCRIT (test code=HCT) 30.9 % 36.0-46.0 MEAN CELL VOLUME (test code=MCV) 92.2 fL 80-98 MEAN CELL HGB (test code=MCH) 29.0 picogram 27.0-33.0 MEAN CELL HGB CONCETRATION (test code=MCHC) 31.4 gram/dL 33.0-36.0 RED CELL DISTRIBUTION WIDTH (test code=RDW) 21.3 % 11.6-16.2 RED CELL DISTRIBUTION WIDTH SD (test code=RDW-SD) 66.6 fL 37.0-51.0 PLATELET COUNT (test code=PLT) 248 K/mm3 150-450 MEAN PLATELET VOLUME (test code=MPV) 11.3 fL 6.7-11.0 NEUTROPHIL % (test code=NT%) 83.7 % 39.0-69.0 IMMATURE GRANULOCYTE % (test code=IG%) 3.2 % 0.0-5.0 LYMPHOCYTE % (test code=LY%) 2.3 % 25.0-55.0 MONOCYTE % (test code=MO%) 8.5 % 0.0-10.0 EOSINOPHIL % (test code=EO%) 2.1 % 0.0-5.0 BASOPHIL % (test code=BA%) 0.2 % 0.0-1.0 NUCLEATED RBC % (test code=NRBC%) 0.5 % 0-0 NEUTROPHIL # (test code=NT#) 11.01 K/mm3 1.8-7.7 IMMATURE GRANULOCYTE # (test code=IG#) 0.42 x10 3/uL 0-0.03 LYMPHOCYTE # (test code=LY#) 0.30 K/mm3 1.0-5.0 MONOCYTE # (test code=MO#) 1.12 K/mm3 0-0.8 EOSINOPHIL # (test code=EO#) 0.27 K/mm3 0.0-0.5 BASOPHIL # (test code=BA#) 0.03 K/mm3 0.0-0.2 NUCLEATED RBC # (test code=NRBC#) 0.07 K/mm3 0.0-0.1 MANUAL DIFF REQUIRED (test code=MDIFF) NO, ONLY SCAN NEEDED DIFFERENTIAL [id number] 08:29:00* Test Item Value Reference Range Comments STAIN ACCEPTABILITY (test code=STN ACCEPTABLE) CABOT RINGS (test code=CAB) MORPHOLOGY COMMENT (test code=MOC) PLATELET ESTIMATE (test code=PLTEST) PLATELET MORPHOLOGY (test code=PLTMORPH) CBC W/AUTO [id number] 08:29:00* Test Item Value Reference Range Comments WHITE BLOOD CELL (test code=WBC) 13.2 K/mm3 4.5-12.5 RED BLOOD CELL (test code=RBC) 3.35 mill/mm3 3.7-5.2 HEMOGLOBIN (test code=HGB) 9.7 gram/dL 11.5-15.5 HEMATOCRIT (test code=HCT) 30.9 % 36.0-46.0 MEAN CELL VOLUME (test code=MCV) 92.2 fL 80-98 MEAN CELL HGB (test code=MCH) 29.0 picogram 27.0-33.0 MEAN CELL HGB CONCETRATION (test code=MCHC) 31.4 gram/dL 33.0-36.0 RED CELL DISTRIBUTION WIDTH (test code=RDW) 21.3 % 11.6-16.2 RED CELL DISTRIBUTION WIDTH SD (test code=RDW-SD) 66.6 fL 37.0-51.0 PLATELET COUNT (test code=PLT) 248 K/mm3 150-450 MEAN PLATELET VOLUME (test code=MPV) 11.3 fL 6.7-11.0 NEUTROPHIL % (test code=NT%) 83.7 % 39.0-69.0 IMMATURE GRANULOCYTE % (test code=IG%) 3.2 % 0.0-5.0 LYMPHOCYTE % (test code=LY%) 2.3 % 25.0-55.0 MONOCYTE % (test code=MO%) 8.5 % 0.0-10.0 EOSINOPHIL % (test code=EO%) 2.1 % 0.0-5.0 BASOPHIL % (test code=BA%) 0.2 % 0.0-1.0 NUCLEATED RBC % (test code=NRBC%) 0.5 % 0-0 NEUTROPHIL # (test code=NT#) 11.01 K/mm3 1.8-7.7 IMMATURE GRANULOCYTE # (test code=IG#) 0.42 x10 3/uL 0-0.03 LYMPHOCYTE # (test code=LY#) 0.30 K/mm3 1.0-5.0 MONOCYTE # (test code=MO#) 1.12 K/mm3 0-0.8 EOSINOPHIL # (test code=EO#) 0.27 K/mm3 0.0-0.5 BASOPHIL # (test code=BA#) 0.03 K/mm3 0.0-0.2 NUCLEATED RBC # (test code=NRBC#) 0.07 K/mm3 0.0-0.1 MANUAL DIFF REQUIRED (test code=MDIFF) NO, ONLY SCAN NEEDED DIFFERENTIAL [id number] 08:29:00* Test Item Value Reference Range Comments STAIN ACCEPTABILITY (test code=STN ACCEPTABLE) MORPHOLOGY COMMENT (test code=MOC) PLATELET ESTIMATE (test code=PLTEST) PLATELET MORPHOLOGY (test code=PLTMORPH) CBC W/AUTO [id number] 08:29:00* Test Item Value Reference Range Comments WHITE BLOOD CELL (test code=WBC) 13.2 K/mm3 4.5-12.5 RED BLOOD CELL (test code=RBC) 3.35 mill/mm3 3.7-5.2 HEMOGLOBIN (test code=HGB) 9.7 gram/dL 11.5-15.5 HEMATOCRIT (test code=HCT) 30.9 % 36.0-46.0 MEAN CELL VOLUME (test code=MCV) 92.2 fL 80-98 MEAN CELL HGB (test code=MCH) 29.0 picogram 27.0-33.0 MEAN CELL HGB CONCETRATION (test code=MCHC) 31.4 gram/dL 33.0-36.0 RED CELL DISTRIBUTION WIDTH (test code=RDW) 21.3 % 11.6-16.2 RED CELL DISTRIBUTION WIDTH SD (test code=RDW-SD) 66.6 fL 37.0-51.0 PLATELET COUNT (test code=PLT) 248 K/mm3 150-450 MEAN PLATELET VOLUME (test code=MPV) 11.3 fL 6.7-11.0 NEUTROPHIL % (test code=NT%) 83.7 % 39.0-69.0 IMMATURE GRANULOCYTE % (test code=IG%) 3.2 % 0.0-5.0 LYMPHOCYTE % (test code=LY%) 2.3 % 25.0-55.0 MONOCYTE % (test code=MO%) 8.5 % 0.0-10.0 EOSINOPHIL % (test code=EO%) 2.1 % 0.0-5.0 BASOPHIL % (test code=BA%) 0.2 % 0.0-1.0 NUCLEATED RBC % (test code=NRBC%) 0.5 % 0-0 NEUTROPHIL # (test code=NT#) 11.01 K/mm3 1.8-7.7 IMMATURE GRANULOCYTE # (test code=IG#) 0.42 x10 3/uL 0-0.03 LYMPHOCYTE # (test code=LY#) 0.30 K/mm3 1.0-5.0 MONOCYTE # (test code=MO#) 1.12 K/mm3 0-0.8 EOSINOPHIL # (test code=EO#) 0.27 K/mm3 0.0-0.5 BASOPHIL # (test code=BA#) 0.03 K/mm3 0.0-0.2 NUCLEATED RBC # (test code=NRBC#) 0.07 K/mm3 0.0-0.1 MANUAL DIFF REQUIRED (test code=MDIFF) NO, ONLY SCAN NEEDED DIFFERENTIAL [id number] 08:29:00* Test Item Value Reference Range Comments STAIN ACCEPTABILITY (test code=STN ACCEPTABLE) CABOT RINGS (test code=CAB) MORPHOLOGY COMMENT (test code=MOC) PLATELET ESTIMATE (test code=PLTEST) PLATELET MORPHOLOGY (test code=PLTMORPH) CREATINE KINASE (CK)2018-09-24 06:52:00* Test Item Value Reference Range Comments CREATINE KINASE (CK) (test code=CK) 83 IUnit/L 26-208 - XR CHEST 1 [id number] 07:51:00 FAX: Pauly Chao MD [phone] [place]: St: [facility] FAX: Dillon Baker MD [phone] Name: BARTOLOME ARGUELLES [facility] : 1930 Age/S: 88/F Karen Anderson[address] Unit #: [id number] Loc: V.[address] [place] [address] Phys: Pauly Peck MD Acct: [id number] Dis Date: Status: ADM IN PHONE #: [phone] Exam Date: 09/23/2018 0454 FAX #: [phone] Reason: DOBHOFF PLACEMENT EXAMS: CPT CODE: [id number] XR CHEST 1 V 95048 HISTORY: Dobbhoff placement. COMPARISON: September 28, 2018. 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 Dobbhoff tube tip within the 2nd portion of the duodenum in good position. Suboptimal inspiration with crowding of bronchovascular markings and dependent changes. No acute infiltrates, effusion or congestion. Scarring. Cardiomegaly. IMPRESSION: Dobbhoff tube tip in the 2nd portion of the duodenum in good position. at 0751 Reported and signed by: Mikael Cha M.D. CC: Pauly Peck MD; Dillon Baker MD Technologist: ERICA NARAYANAN, RT(R); Poly Vaughan Trnscrd Date/Time/By: 09/23/2018 (0751) : By: [email or web address] Orig Print D/T: S: 0 09/23/2018 (0754) PAGE 1 Signed Re port CBC W/MANUAL [id number] 07:49:00* Test Item Value Reference Range Comments WHITE BLOOD CELL (test code=WBC) 9.2 K/mm3 4.5-12.5 RED BLOOD CELL (test code=RBC) 3.04 mill/mm3 3.7-5.2 HEMOGLOBIN (test code=HGB) 8.6 gram/dL 11.5-15.5 HEMATOCRIT (test code=HCT) 28.3 % 36.0-46.0 MEAN CELL VOLUME (test code=MCV) 93.1 fL 80-98 MEAN CELL HGB (test code=MCH) 28.3 picogram 27.0-33.0 MEAN CELL HGB CONCETRATION (test code=MCHC) 30.4 gram/dL 33.0-36.0 RED CELL DISTRIBUTION WIDTH (test code=RDW) 20.4 % 11.6-16.2 RED CELL DISTRIBUTION WIDTH SD (test code=RDW-SD) 65.1 fL 37.0-51.0 PLATELET COUNT (test code=PLT) 218 K/mm3 150-450 MEAN PLATELET VOLUME (test code=MPV) 10.6 fL 6.7-11.0 IMMATURE GRANULOCYTE % (test code=IG%) 5.3 % 0.0-5.0 "The appearance of immature granulocytes (myelocytes,pro-myelocytes, meta-myelocytes) in the peripheral blood ofnon- individuals can indicate a response toinfection, inflammation, or other stimulus to the bonemarrow" NUCLEATED RBC % (test code=NRBC%) 1.5 % 0-0 NEUTROPHIL # (test code=NT#) 7.19 K/mm3 1.8-7.7 IMMATURE GRANULOCYTE # (test code=IG#) 0.49 x10 3/uL 0-0.03 LYMPHOCYTE # (test code=LY#) 0.31 K/mm3 1.0-5.0 MONOCYTE # (test code=MO#) 0.95 K/mm3 0-0.8 EOSINOPHIL # (test code=EO#) 0.26 K/mm3 0.0-0.5 BASOPHIL # (test code=BA#) 0.02 K/mm3 0.0-0.2 NUCLEATED RBC # (test code=NRBC#) 0.14 K/mm3 0.0-0.1 MANUAL DIFF REQUIRED (test code=MDIFF) YES STAIN ACCEPTABILITY (test code=STN ACCEPTABLE) STAIN ACCEPTABLE TOTAL CELLS COUNTED (test code=TCC) 114 #CELLS SEGMENTED NEUTROPHILS (test code=SEG) 86.9 % 39-69 BAND NEUTROPHIL (test code=BAND) 0.9 % 0-10 LYMPHOCYTE (test code=LYMPH) 2.6 % 25-55 REACTIVE LYMPH (test code=RELYMPH) 0 % MONOCYTE (test code=MON) 6.1 % 0-10 EOSINOPHIL (test code=EOS) 2.6 % 0.0-5.0 BASOPHIL (test code=BASO) 0 % 0-1.0 METAMYELOCYTE (test code=META) 0.9 % 0-0 MYELOCYTE (test code=MYELO) 0 % 0.0-0.0 PROMYELOCYTE (test code=PROM) 0 % 0-0 POLYCHROMASIA (test code=POLC) 2+ HYPOCHROMIA (test code=HYPO) 1+ POIKILOCYTOSIS (test code=POIK) 1+ ANISOCYTOSIS (test code=ANISO) 2+ PLATELET ESTIMATE (test code=PLTEST) ADEQUATE PLATELET MORPHOLOGY (test code=PLTMORPH) SIZE VARIABLE IMMATURE FORMS (test code=IMMAT) 0 % 0-0 BASIC METABOLIC [id number] 06:41:00* Test Item Value Reference Range Comments SODIUM (test code=NA) 146 mmol/L 136-145 POTASSIUM (test code=K) 4.5 mmol/L 3.5-5.1 CHLORIDE (test code=CL) 112.0 mmol/L 98-107 CARBON DIOXIDE (test code=CO2) 27.0 mmol/L 21-32 ANION GAP (test code=GAP) 11.5 10-20 GLUCOSE (test code=GLU) 99 mg/dL 74-106 BLOOD UREA NITROGEN (test code=BUN) 52 mg/dL 7-18 GLOMERULAR FILTRATION RATE (test code=GFR) 39 mL/min >=60 Estimated GFR by using Modified MDRD formula.Chronic kidney disease is defined as either kidney damageor GFR <60 mL/min/1.73 m2 for >3 months. CREATININE (test code=CREAT) 1.30 mg/dL 0.55-1.02 Note change in reference range due to change in reagent. BUN/CREATININE RATIO (test code=BUN/CREA) 40.0 10-20 CALCIUM (test code=CA) 8.0 mg/dL 8.5-10.1 CBC W/MANUAL [id number] 05:57:00* Test Item Value Reference Range Comments WHITE BLOOD CELL (test code=WBC) 9.2 K/mm3 4.5-12.5 RED BLOOD CELL (test code=RBC) 3.04 mill/mm3 3.7-5.2 HEMOGLOBIN (test code=HGB) 8.6 gram/dL 11.5-15.5 HEMATOCRIT (test code=HCT) 28.3 % 36.0-46.0 MEAN CELL VOLUME (test code=MCV) 93.1 fL 80-98 MEAN CELL HGB (test code=MCH) 28.3 picogram 27.0-33.0 MEAN CELL HGB CONCETRATION (test code=MCHC) 30.4 gram/dL 33.0-36.0 RED CELL DISTRIBUTION WIDTH (test code=RDW) 20.4 % 11.6-16.2 RED CELL DISTRIBUTION WIDTH SD (test code=RDW-SD) 65.1 fL 37.0-51.0 PLATELET COUNT (test code=PLT) 218 K/mm3 150-450 MEAN PLATELET VOLUME (test code=MPV) 10.6 fL 6.7-11.0 IMMATURE GRANULOCYTE % (test code=IG%) 5.3 % 0.0-5.0 "The appearance of immature granulocytes (myelocytes,pro-myelocytes, meta-myelocytes) in the peripheral blood ofnon- individuals can indicate a response toinfection, inflammation, or other stimulus to the bonemarrow" NUCLEATED RBC % (test code=NRBC%) 1.5 % 0-0 NEUTROPHIL # (test code=NT#) 7.19 K/mm3 1.8-7.7 IMMATURE GRANULOCYTE # (test code=IG#) 0.49 x10 3/uL 0-0.03 LYMPHOCYTE # (test code=LY#) 0.31 K/mm3 1.0-5.0 MONOCYTE # (test code=MO#) 0.95 K/mm3 0-0.8 EOSINOPHIL # (test code=EO#) 0.26 K/mm3 0.0-0.5 BASOPHIL # (test code=BA#) 0.02 K/mm3 0.0-0.2 NUCLEATED RBC # (test code=NRBC#) 0.14 K/mm3 0.0-0.1 MANUAL DIFF REQUIRED (test code=MDIFF) YES STAIN ACCEPTABILITY (test code=STN ACCEPTABLE) TOTAL CELLS COUNTED (test code=TCC) #CELLS SEGMENTED NEUTROPHILS (test code=SEG) % 39-69 LYMPHOCYTE (test code=LYMPH) % 25-55 MONOCYTE (test code=MON) % 0-10 MORPHOLOGY COMMENT (test code=MOC) PLATELET ESTIMATE (test code=PLTEST) PLATELET MORPHOLOGY (test code=PLTMORPH) CBC W/MANUAL [id number] 05:56:00* Test Item Value Reference Range Comments WHITE BLOOD CELL (test code=WBC) 9.2 K/mm3 4.5-12.5 RED BLOOD CELL (test code=RBC) 3.04 mill/mm3 3.7-5.2 HEMOGLOBIN (test code=HGB) 8.6 gram/dL 11.5-15.5 HEMATOCRIT (test code=HCT) 28.3 % 36.0-46.0 MEAN CELL VOLUME (test code=MCV) 93.1 fL 80-98 MEAN CELL HGB (test code=MCH) 28.3 picogram 27.0-33.0 MEAN CELL HGB CONCETRATION (test code=MCHC) 30.4 gram/dL 33.0-36.0 RED CELL DISTRIBUTION WIDTH (test code=RDW) 20.4 % 11.6-16.2 RED CELL DISTRIBUTION WIDTH SD (test code=RDW-SD) 65.1 fL 37.0-51.0 PLATELET COUNT (test code=PLT) 218 K/mm3 150-450 MEAN PLATELET VOLUME (test code=MPV) 10.6 fL 6.7-11.0 IMMATURE GRANULOCYTE % (test code=IG%) 5.3 % 0.0-5.0 "The appearance of immature granulocytes (myelocytes,pro-myelocytes, meta-myelocytes) in the peripheral blood ofnon- individuals can indicate a response toinfection, inflammation, or other stimulus to the bonemarrow" NUCLEATED RBC % (test code=NRBC%) 1.5 % 0-0 NEUTROPHIL # (test code=NT#) 7.19 K/mm3 1.8-7.7 IMMATURE GRANULOCYTE # (test code=IG#) 0.49 x10 3/uL 0-0.03 LYMPHOCYTE # (test code=LY#) 0.31 K/mm3 1.0-5.0 MONOCYTE # (test code=MO#) 0.95 K/mm3 0-0.8 EOSINOPHIL # (test code=EO#) 0.26 K/mm3 0.0-0.5 BASOPHIL # (test code=BA#) 0.02 K/mm3 0.0-0.2 NUCLEATED RBC # (test code=NRBC#) 0.14 K/mm3 0.0-0.1 MANUAL DIFF REQUIRED (test code=MDIFF) YES STAIN ACCEPTABILITY (test code=STN ACCEPTABLE) TOTAL CELLS COUNTED (test code=TCC) #CELLS SEGMENTED NEUTROPHILS (test code=SEG) % 39-69 LYMPHOCYTE (test code=LYMPH) % 25-55 MONOCYTE (test code=MON) % 0-10 EOSINOPHIL (test code=EOS) % 0.0-5.0 CABOT RINGS (test code=CAB) MORPHOLOGY COMMENT (test code=MOC) PLATELET ESTIMATE (test code=PLTEST) PLATELET MORPHOLOGY (test code=PLTMORPH) CBC W/MANUAL [id number] 05:56:00* Test Item Value Reference Range Comments WHITE BLOOD CELL (test code=WBC) 9.2 K/mm3 4.5-12.5 RED BLOOD CELL (test code=RBC) 3.04 mill/mm3 3.7-5.2 HEMOGLOBIN (test code=HGB) 8.6 gram/dL 11.5-15.5 HEMATOCRIT (test code=HCT) 28.3 % 36.0-46.0 MEAN CELL VOLUME (test code=MCV) 93.1 fL 80-98 MEAN CELL HGB (test code=MCH) 28.3 picogram 27.0-33.0 MEAN CELL HGB CONCETRATION (test code=MCHC) 30.4 gram/dL 33.0-36.0 RED CELL DISTRIBUTION WIDTH (test code=RDW) 20.4 % 11.6-16.2 RED CELL DISTRIBUTION WIDTH SD (test code=RDW-SD) 65.1 fL 37.0-51.0 PLATELET COUNT (test code=PLT) 218 K/mm3 150-450 MEAN PLATELET VOLUME (test code=MPV) 10.6 fL 6.7-11.0 IMMATURE GRANULOCYTE % (test code=IG%) 5.3 % 0.0-5.0 "The appearance of immature granulocytes (myelocytes,pro-myelocytes, meta-myelocytes) in the peripheral blood ofnon- individuals can indicate a response toinfection, inflammation, or other stimulus to the bonemarrow" NUCLEATED RBC % (test code=NRBC%) 1.5 % 0-0 NEUTROPHIL # (test code=NT#) 7.19 K/mm3 1.8-7.7 IMMATURE GRANULOCYTE # (test code=IG#) 0.49 x10 3/uL 0-0.03 LYMPHOCYTE # (test code=LY#) 0.31 K/mm3 1.0-5.0 MONOCYTE # (test code=MO#) 0.95 K/mm3 0-0.8 EOSINOPHIL # (test code=EO#) 0.26 K/mm3 0.0-0.5 BASOPHIL # (test code=BA#) 0.02 K/mm3 0.0-0.2 NUCLEATED RBC # (test code=NRBC#) 0.14 K/mm3 0.0-0.1 MANUAL DIFF REQUIRED (test code=MDIFF) YES STAIN ACCEPTABILITY (test code=STN ACCEPTABLE) TOTAL CELLS COUNTED (test code=TCC) #CELLS SEGMENTED NEUTROPHILS (test code=SEG) % 39-69 LYMPHOCYTE (test code=LYMPH) % 25-55 MONOCYTE (test code=MON) % 0-10 EOSINOPHIL (test code=EOS) % 0.0-5.0 CABOT RINGS (test code=CAB) MORPHOLOGY COMMENT (test code=MOC) PLATELET ESTIMATE (test code=PLTEST) PLATELET MORPHOLOGY (test code=PLTMORPH) CBC W/MANUAL [id number] 05:56:00* Test Item Value Reference Range Comments WHITE BLOOD CELL (test code=WBC) 9.2 K/mm3 4.5-12.5 RED BLOOD CELL (test code=RBC) 3.04 mill/mm3 3.7-5.2 HEMOGLOBIN (test code=HGB) 8.6 gram/dL 11.5-15.5 HEMATOCRIT (test code=HCT) 28.3 % 36.0-46.0 MEAN CELL VOLUME (test code=MCV) 93.1 fL 80-98 MEAN CELL HGB (test code=MCH) 28.3 picogram 27.0-33.0 MEAN CELL HGB CONCETRATION (test code=MCHC) 30.4 gram/dL 33.0-36.0 RED CELL DISTRIBUTION WIDTH (test code=RDW) 20.4 % 11.6-16.2 RED CELL DISTRIBUTION WIDTH SD (test code=RDW-SD) 65.1 fL 37.0-51.0 PLATELET COUNT (test code=PLT) 218 K/mm3 150-450 MEAN PLATELET VOLUME (test code=MPV) 10.6 fL 6.7-11.0 IMMATURE GRANULOCYTE % (test code=IG%) 5.3 % 0.0-5.0 "The appearance of immature granulocytes (myelocytes,pro-myelocytes, meta-myelocytes) in the peripheral blood ofnon- individuals can indicate a response toinfection, inflammation, or other stimulus to the bonemarrow" NUCLEATED RBC % (test code=NRBC%) 1.5 % 0-0 NEUTROPHIL # (test code=NT#) 7.19 K/mm3 1.8-7.7 IMMATURE GRANULOCYTE # (test code=IG#) 0.49 x10 3/uL 0-0.03 LYMPHOCYTE # (test code=LY#) 0.31 K/mm3 1.0-5.0 MONOCYTE # (test code=MO#) 0.95 K/mm3 0-0.8 EOSINOPHIL # (test code=EO#) 0.26 K/mm3 0.0-0.5 BASOPHIL # (test code=BA#) 0.02 K/mm3 0.0-0.2 NUCLEATED RBC # (test code=NRBC#) 0.14 K/mm3 0.0-0.1 MANUAL DIFF REQUIRED (test code=MDIFF) YES STAIN ACCEPTABILITY (test code=STN ACCEPTABLE) TOTAL CELLS COUNTED (test code=TCC) #CELLS SEGMENTED NEUTROPHILS (test code=SEG) % 39-69 LYMPHOCYTE (test code=LYMPH) % 25-55 MONOCYTE (test code=MON) % 0-10 EOSINOPHIL (test code=EOS) % 0.0-5.0 MORPHOLOGY COMMENT (test code=MOC) PLATELET ESTIMATE (test code=PLTEST) PLATELET MORPHOLOGY (test code=PLTMORPH) CBC W/MANUAL [id number] 05:56:00* Test Item Value Reference Range Comments WHITE BLOOD CELL (test code=WBC) 9.2 K/mm3 4.5-12.5 RED BLOOD CELL (test code=RBC) 3.04 mill/mm3 3.7-5.2 HEMOGLOBIN (test code=HGB) 8.6 gram/dL 11.5-15.5 HEMATOCRIT (test code=HCT) 28.3 % 36.0-46.0 MEAN CELL VOLUME (test code=MCV) 93.1 fL 80-98 MEAN CELL HGB (test code=MCH) 28.3 picogram 27.0-33.0 MEAN CELL HGB CONCETRATION (test code=MCHC) 30.4 gram/dL 33.0-36.0 RED CELL DISTRIBUTION WIDTH (test code=RDW) 20.4 % 11.6-16.2 RED CELL DISTRIBUTION WIDTH SD (test code=RDW-SD) 65.1 fL 37.0-51.0 PLATELET COUNT (test code=PLT) 218 K/mm3 150-450 MEAN PLATELET VOLUME (test code=MPV) 10.6 fL 6.7-11.0 IMMATURE GRANULOCYTE % (test code=IG%) 5.3 % 0.0-5.0 "The appearance of immature granulocytes (myelocytes,pro-myelocytes, meta-myelocytes) in the peripheral blood ofnon- individuals can indicate a response toinfection, inflammation, or other stimulus to the bonemarrow" NUCLEATED RBC % (test code=NRBC%) 1.5 % 0-0 NEUTROPHIL # (test code=NT#) 7.19 K/mm3 1.8-7.7 IMMATURE GRANULOCYTE # (test code=IG#) 0.49 x10 3/uL 0-0.03 LYMPHOCYTE # (test code=LY#) 0.31 K/mm3 1.0-5.0 MONOCYTE # (test code=MO#) 0.95 K/mm3 0-0.8 EOSINOPHIL # (test code=EO#) 0.26 K/mm3 0.0-0.5 BASOPHIL # (test code=BA#) 0.02 K/mm3 0.0-0.2 NUCLEATED RBC # (test code=NRBC#) 0.14 K/mm3 0.0-0.1 MANUAL DIFF REQUIRED (test code=MDIFF) YES STAIN ACCEPTABILITY (test code=STN ACCEPTABLE) TOTAL CELLS COUNTED (test code=TCC) #CELLS SEGMENTED NEUTROPHILS (test code=SEG) % 39-69 LYMPHOCYTE (test code=LYMPH) % 25-55 MONOCYTE (test code=MON) % 0-10 EOSINOPHIL (test code=EOS) % 0.0-5.0 CABOT RINGS (test code=CAB) MORPHOLOGY COMMENT (test code=MOC) PLATELET ESTIMATE (test code=PLTEST) PLATELET MORPHOLOGY (test code=PLTMORPH) CBC W/MANUAL [id number] 07:13:00* Test Item Value Reference Range Comments WHITE BLOOD CELL (test code=WBC) 9.0 K/mm3 4.5-12.5 RED BLOOD CELL (test code=RBC) 3.13 mill/mm3 3.7-5.2 HEMOGLOBIN (test code=HGB) 9.0 gram/dL 11.5-15.5 HEMATOCRIT (test code=HCT) 29.2 % 36.0-46.0 MEAN CELL VOLUME (test code=MCV) 93.3 fL 80-98 MEAN CELL HGB (test code=MCH) 28.8 picogram 27.0-33.0 MEAN CELL HGB CONCETRATION (test code=MCHC) 30.8 gram/dL 33.0-36.0 RED CELL DISTRIBUTION WIDTH (test code=RDW) 20.4 % 11.6-16.2 RED CELL DISTRIBUTION WIDTH SD (test code=RDW-SD) 65.2 fL 37.0-51.0 PLATELET COUNT (test code=PLT) 222 K/mm3 150-450 MEAN PLATELET VOLUME (test code=MPV) 10.8 fL 6.7-11.0 IMMATURE GRANULOCYTE % (test code=IG%) 6.7 % 0.0-5.0 "The appearance of immature granulocytes (myelocytes,pro-myelocytes, meta-myelocytes) in the peripheral blood ofnon- individuals can indicate a response toinfection, inflammation, or other stimulus to the bonemarrow" NUCLEATED RBC % (test code=NRBC%) 2.3 % 0-0 NEUTROPHIL # (test code=NT#) 7.02 K/mm3 1.8-7.7 IMMATURE GRANULOCYTE # (test code=IG#) 0.60 x10 3/uL 0-0.03 LYMPHOCYTE # (test code=LY#) 0.27 K/mm3 1.0-5.0 MONOCYTE # (test code=MO#) 0.89 K/mm3 0-0.8 EOSINOPHIL # (test code=EO#) 0.18 K/mm3 0.0-0.5 BASOPHIL # (test code=BA#) 0.03 K/mm3 0.0-0.2 NUCLEATED RBC # (test code=NRBC#) 0.21 K/mm3 0.0-0.1 MANUAL DIFF REQUIRED (test code=MDIFF) YES STAIN ACCEPTABILITY (test code=STN ACCEPTABLE) STAIN ACCEPTABLE TOTAL CELLS COUNTED (test code=TCC) 114 #CELLS SEGMENTED NEUTROPHILS (test code=SEG) 90.3 % 39-69 BAND NEUTROPHIL (test code=BAND) 0 % 0-10 LYMPHOCYTE (test code=LYMPH) 0.9 % 25-55 REACTIVE LYMPH (test code=RELYMPH) 0 % MONOCYTE (test code=MON) 5.2 % 0-10 EOSINOPHIL (test code=EOS) 0.9 % 0.0-5.0 BASOPHIL (test code=BASO) 0 % 0-1.0 METAMYELOCYTE (test code=META) 0.9 % 0-0 MYELOCYTE (test code=MYELO) 0.9 % 0.0-0.0 PROMYELOCYTE (test code=PROM) 0.9 % 0-0 POLYCHROMASIA (test code=POLC) 2+ POIKILOCYTOSIS (test code=POIK) 1+ ANISOCYTOSIS (test code=ANISO) 1+ MACROCYTOSIS (test code=MACR) 1+ ELLIPTOCYTES (test code=ELL) 1+ PLATELET ESTIMATE (test code=PLTEST) ADEQUATE PLATELET MORPHOLOGY (test code=PLTMORPH) NORMAL IMMATURE FORMS (test code=IMMAT) 0 % 0-0 BASIC METABOLIC [id number] 07:04:00* Test Item Value Reference Range Comments SODIUM (test code=NA) 147 mmol/L 136-145 POTASSIUM (test code=K) 4.1 mmol/L 3.5-5.1 CHLORIDE (test code=CL) 114.0 mmol/L 98-107 CARBON DIOXIDE (test code=CO2) 28.0 mmol/L 21-32 ANION GAP (test code=GAP) 9.1 10-20 GLUCOSE (test code=GLU) 113 mg/dL 74-106 BLOOD UREA NITROGEN (test code=BUN) 64 mg/dL 7-18 GLOMERULAR FILTRATION RATE (test code=GFR) 33 mL/min >=60 Estimated GFR by using Modified MDRD formula.Chronic kidney disease is defined as either kidney damageor GFR <60 mL/min/1.73 m2 for >3 months. CREATININE (test code=CREAT) 1.50 mg/dL 0.55-1.02 Note change in reference range due to change in reagent. BUN/CREATININE RATIO (test code=BUN/CREA) 42.7 10-20 CALCIUM (test code=CA) 7.8 mg/dL 8.5-10.1 [id number] 07:04:00* Test Item Value Reference Range Comments MAGNESIUM (test code=MAG) 2.7 mg/dL 1.8-2.4 BASIC METABOLIC [id number] 07:03:00* Test Item Value Reference Range Comments SODIUM (test code=NA) 147 mmol/L 136-145 POTASSIUM (test code=K) 4.1 mmol/L 3.5-5.1 CHLORIDE (test code=CL) 114.0 mmol/L 98-107 CARBON DIOXIDE (test code=CO2) mmol/L 21-32 ANION GAP (test code=GAP) 10-20 GLUCOSE (test code=GLU) mg/dL 74-106 BLOOD UREA NITROGEN (test code=BUN) mg/dL 7-18 GLOMERULAR FILTRATION RATE (test code=GFR) mL/min >=60 CREATININE (test code=CREAT) mg/dL 0.55-1.02 BUN/CREATININE RATIO (test code=BUN/CREA) 10-20 CALCIUM (test code=CA) mg/dL 8.5-10.1 [id number] 07:03:00* Test Item Value Reference Range Comments MAGNESIUM (test code=MAG) mg/dL 1.8-2.4 CBC W/MANUAL [id number] 06:16:00* Test Item Value Reference Range Comments WHITE BLOOD CELL (test code=WBC) 9.0 K/mm3 4.5-12.5 RED BLOOD CELL (test code=RBC) 3.13 mill/mm3 3.7-5.2 HEMOGLOBIN (test code=HGB) 9.0 gram/dL 11.5-15.5 HEMATOCRIT (test code=HCT) 29.2 % 36.0-46.0 MEAN CELL VOLUME (test code=MCV) 93.3 fL 80-98 MEAN CELL HGB (test code=MCH) 28.8 picogram 27.0-33.0 MEAN CELL HGB CONCETRATION (test code=MCHC) 30.8 gram/dL 33.0-36.0 RED CELL DISTRIBUTION WIDTH (test code=RDW) 20.4 % 11.6-16.2 RED CELL DISTRIBUTION WIDTH SD (test code=RDW-SD) 65.2 fL 37.0-51.0 PLATELET COUNT (test code=PLT) 222 K/mm3 150-450 MEAN PLATELET VOLUME (test code=MPV) 10.8 fL 6.7-11.0 IMMATURE GRANULOCYTE % (test code=IG%) 6.7 % 0.0-5.0 "The appearance of immature granulocytes (myelocytes,pro-myelocytes, meta-myelocytes) in the peripheral blood ofnon- individuals can indicate a response toinfection, inflammation, or other stimulus to the bonemarrow" NUCLEATED RBC % (test code=NRBC%) 2.3 % 0-0 NEUTROPHIL # (test code=NT#) 7.02 K/mm3 1.8-7.7 IMMATURE GRANULOCYTE # (test code=IG#) 0.60 x10 3/uL 0-0.03 LYMPHOCYTE # (test code=LY#) 0.27 K/mm3 1.0-5.0 MONOCYTE # (test code=MO#) 0.89 K/mm3 0-0.8 EOSINOPHIL # (test code=EO#) 0.18 K/mm3 0.0-0.5 BASOPHIL # (test code=BA#) 0.03 K/mm3 0.0-0.2 NUCLEATED RBC # (test code=NRBC#) 0.21 K/mm3 0.0-0.1 MANUAL DIFF REQUIRED (test code=MDIFF) YES STAIN ACCEPTABILITY (test code=STN ACCEPTABLE) TOTAL CELLS COUNTED (test code=TCC) #CELLS SEGMENTED NEUTROPHILS (test code=SEG) % 39-69 LYMPHOCYTE (test code=LYMPH) % 25-55 MONOCYTE (test code=MON) % 0-10 EOSINOPHIL (test code=EOS) % 0.0-5.0 CABOT RINGS (test code=CAB) MORPHOLOGY COMMENT (test code=MOC) PLATELET ESTIMATE (test code=PLTEST) PLATELET MORPHOLOGY (test code=PLTMORPH) CBC W/MANUAL [id number] 06:16:00* Test Item Value Reference Range Comments WHITE BLOOD CELL (test code=WBC) 9.0 K/mm3 4.5-12.5 RED BLOOD CELL (test code=RBC) 3.13 mill/mm3 3.7-5.2 HEMOGLOBIN (test code=HGB) 9.0 gram/dL 11.5-15.5 HEMATOCRIT (test code=HCT) 29.2 % 36.0-46.0 MEAN CELL VOLUME (test code=MCV) 93.3 fL 80-98 MEAN CELL HGB (test code=MCH) 28.8 picogram 27.0-33.0 MEAN CELL HGB CONCETRATION (test code=MCHC) 30.8 gram/dL 33.0-36.0 RED CELL DISTRIBUTION WIDTH (test code=RDW) 20.4 % 11.6-16.2 RED CELL DISTRIBUTION WIDTH SD (test code=RDW-SD) 65.2 fL 37.0-51.0 PLATELET COUNT (test code=PLT) 222 K/mm3 150-450 MEAN PLATELET VOLUME (test code=MPV) 10.8 fL 6.7-11.0 IMMATURE GRANULOCYTE % (test code=IG%) 6.7 % 0.0-5.0 "The appearance of immature granulocytes (myelocytes,pro-myelocytes, meta-myelocytes) in the peripheral blood ofnon- individuals can indicate a response toinfection, inflammation, or other stimulus to the bonemarrow" NUCLEATED RBC % (test code=NRBC%) 2.3 % 0-0 NEUTROPHIL # (test code=NT#) 7.02 K/mm3 1.8-7.7 IMMATURE GRANULOCYTE # (test code=IG#) 0.60 x10 3/uL 0-0.03 LYMPHOCYTE # (test code=LY#) 0.27 K/mm3 1.0-5.0 MONOCYTE # (test code=MO#) 0.89 K/mm3 0-0.8 EOSINOPHIL # (test code=EO#) 0.18 K/mm3 0.0-0.5 BASOPHIL # (test code=BA#) 0.03 K/mm3 0.0-0.2 NUCLEATED RBC # (test code=NRBC#) 0.21 K/mm3 0.0-0.1 MANUAL DIFF REQUIRED (test code=MDIFF) YES STAIN ACCEPTABILITY (test code=STN ACCEPTABLE) TOTAL CELLS COUNTED (test code=TCC) #CELLS SEGMENTED NEUTROPHILS (test code=SEG) % 39-69 LYMPHOCYTE (test code=LYMPH) % 25-55 MONOCYTE (test code=MON) % 0-10 EOSINOPHIL (test code=EOS) % 0.0-5.0 CABOT RINGS (test code=CAB) MORPHOLOGY COMMENT (test code=MOC) PLATELET ESTIMATE (test code=PLTEST) PLATELET MORPHOLOGY (test code=PLTMORPH) CBC W/MANUAL [id number] 06:16:00* Test Item Value Reference Range Comments WHITE BLOOD CELL (test code=WBC) 9.0 K/mm3 4.5-12.5 RED BLOOD CELL (test code=RBC) 3.13 mill/mm3 3.7-5.2 HEMOGLOBIN (test code=HGB) 9.0 gram/dL 11.5-15.5 HEMATOCRIT (test code=HCT) 29.2 % 36.0-46.0 MEAN CELL VOLUME (test code=MCV) 93.3 fL 80-98 MEAN CELL HGB (test code=MCH) 28.8 picogram 27.0-33.0 MEAN CELL HGB CONCETRATION (test code=MCHC) 30.8 gram/dL 33.0-36.0 RED CELL DISTRIBUTION WIDTH (test code=RDW) 20.4 % 11.6-16.2 RED CELL DISTRIBUTION WIDTH SD (test code=RDW-SD) 65.2 fL 37.0-51.0 PLATELET COUNT (test code=PLT) 222 K/mm3 150-450 MEAN PLATELET VOLUME (test code=MPV) 10.8 fL 6.7-11.0 IMMATURE GRANULOCYTE % (test code=IG%) 6.7 % 0.0-5.0 "The appearance of immature granulocytes (myelocytes,pro-myelocytes, meta-myelocytes) in the peripheral blood ofnon- individuals can indicate a response toinfection, inflammation, or other stimulus to the bonemarrow" NUCLEATED RBC % (test code=NRBC%) 2.3 % 0-0 NEUTROPHIL # (test code=NT#) 7.02 K/mm3 1.8-7.7 IMMATURE GRANULOCYTE # (test code=IG#) 0.60 x10 3/uL 0-0.03 LYMPHOCYTE # (test code=LY#) 0.27 K/mm3 1.0-5.0 MONOCYTE # (test code=MO#) 0.89 K/mm3 0-0.8 EOSINOPHIL # (test code=EO#) 0.18 K/mm3 0.0-0.5 BASOPHIL # (test code=BA#) 0.03 K/mm3 0.0-0.2 NUCLEATED RBC # (test code=NRBC#) 0.21 K/mm3 0.0-0.1 MANUAL DIFF REQUIRED (test code=MDIFF) YES STAIN ACCEPTABILITY (test code=STN ACCEPTABLE) TOTAL CELLS COUNTED (test code=TCC) #CELLS SEGMENTED NEUTROPHILS (test code=SEG) % 39-69 LYMPHOCYTE (test code=LYMPH) % 25-55 MONOCYTE (test code=MON) % 0-10 EOSINOPHIL (test code=EOS) % 0.0-5.0 MORPHOLOGY COMMENT (test code=MOC) PLATELET ESTIMATE (test code=PLTEST) PLATELET MORPHOLOGY (test code=PLTMORPH) CBC W/MANUAL [id number] 06:16:00* Test Item Value Reference Range Comments WHITE BLOOD CELL (test code=WBC) 9.0 K/mm3 4.5-12.5 RED BLOOD CELL (test code=RBC) 3.13 mill/mm3 3.7-5.2 HEMOGLOBIN (test code=HGB) 9.0 gram/dL 11.5-15.5 HEMATOCRIT (test code=HCT) 29.2 % 36.0-46.0 MEAN CELL VOLUME (test code=MCV) 93.3 fL 80-98 MEAN CELL HGB (test code=MCH) 28.8 picogram 27.0-33.0 MEAN CELL HGB CONCETRATION (test code=MCHC) 30.8 gram/dL 33.0-36.0 RED CELL DISTRIBUTION WIDTH (test code=RDW) 20.4 % 11.6-16.2 RED CELL DISTRIBUTION WIDTH SD (test code=RDW-SD) 65.2 fL 37.0-51.0 PLATELET COUNT (test code=PLT) 222 K/mm3 150-450 MEAN PLATELET VOLUME (test code=MPV) 10.8 fL 6.7-11.0 IMMATURE GRANULOCYTE % (test code=IG%) 6.7 % 0.0-5.0 "The appearance of immature granulocytes (myelocytes,pro-myelocytes, meta-myelocytes) in the peripheral blood ofnon- individuals can indicate a response toinfection, inflammation, or other stimulus to the bonemarrow" NUCLEATED RBC % (test code=NRBC%) 2.3 % 0-0 NEUTROPHIL # (test code=NT#) 7.02 K/mm3 1.8-7.7 IMMATURE GRANULOCYTE # (test code=IG#) 0.60 x10 3/uL 0-0.03 LYMPHOCYTE # (test code=LY#) 0.27 K/mm3 1.0-5.0 MONOCYTE # (test code=MO#) 0.89 K/mm3 0-0.8 EOSINOPHIL # (test code=EO#) 0.18 K/mm3 0.0-0.5 BASOPHIL # (test code=BA#) 0.03 K/mm3 0.0-0.2 NUCLEATED RBC # (test code=NRBC#) 0.21 K/mm3 0.0-0.1 MANUAL DIFF REQUIRED (test code=MDIFF) YES STAIN ACCEPTABILITY (test code=STN ACCEPTABLE) TOTAL CELLS COUNTED (test code=TCC) #CELLS SEGMENTED NEUTROPHILS (test code=SEG) % 39-69 LYMPHOCYTE (test code=LYMPH) % 25-55 MONOCYTE (test code=MON) % 0-10 MORPHOLOGY COMMENT (test code=MOC) PLATELET ESTIMATE (test code=PLTEST) PLATELET MORPHOLOGY (test code=PLTMORPH) CBC W/MANUAL [id number] 06:16:00* Test Item Value Reference Range Comments WHITE BLOOD CELL (test code=WBC) 9.0 K/mm3 4.5-12.5 RED BLOOD CELL (test code=RBC) 3.13 mill/mm3 3.7-5.2 HEMOGLOBIN (test code=HGB) 9.0 gram/dL 11.5-15.5 HEMATOCRIT (test code=HCT) 29.2 % 36.0-46.0 MEAN CELL VOLUME (test code=MCV) 93.3 fL 80-98 MEAN CELL HGB (test code=MCH) 28.8 picogram 27.0-33.0 MEAN CELL HGB CONCETRATION (test code=MCHC) 30.8 gram/dL 33.0-36.0 RED CELL DISTRIBUTION WIDTH (test code=RDW) 20.4 % 11.6-16.2 RED CELL DISTRIBUTION WIDTH SD (test code=RDW-SD) 65.2 fL 37.0-51.0 PLATELET COUNT (test code=PLT) 222 K/mm3 150-450 MEAN PLATELET VOLUME (test code=MPV) 10.8 fL 6.7-11.0 IMMATURE GRANULOCYTE % (test code=IG%) 6.7 % 0.0-5.0 "The appearance of immature granulocytes (myelocytes,pro-myelocytes, meta-myelocytes) in the peripheral blood ofnon- individuals can indicate a response toinfection, inflammation, or other stimulus to the bonemarrow" NUCLEATED RBC % (test code=NRBC%) 2.3 % 0-0 NEUTROPHIL # (test code=NT#) 7.02 K/mm3 1.8-7.7 IMMATURE GRANULOCYTE # (test code=IG#) 0.60 x10 3/uL 0-0.03 LYMPHOCYTE # (test code=LY#) 0.27 K/mm3 1.0-5.0 MONOCYTE # (test code=MO#) 0.89 K/mm3 0-0.8 EOSINOPHIL # (test code=EO#) 0.18 K/mm3 0.0-0.5 BASOPHIL # (test code=BA#) 0.03 K/mm3 0.0-0.2 NUCLEATED RBC # (test code=NRBC#) 0.21 K/mm3 0.0-0.1 MANUAL DIFF REQUIRED (test code=MDIFF) YES STAIN ACCEPTABILITY (test code=STN ACCEPTABLE) TOTAL CELLS COUNTED (test code=TCC) #CELLS SEGMENTED NEUTROPHILS (test code=SEG) % 39-69 LYMPHOCYTE (test code=LYMPH) % 25-55 MONOCYTE (test code=MON) % 0-10 EOSINOPHIL (test code=EOS) % 0.0-5.0 CABOT RINGS (test code=CAB) MORPHOLOGY COMMENT (test code=MOC) PLATELET ESTIMATE (test code=PLTEST) PLATELET MORPHOLOGY (test code=PLTMORPH) [id number] 00:00:00* Test Item Value Reference Range Comments GLUBED (test code=GLUBED) 108 mg/dL 74-106 Performed by certified skoog machine operator at [facility] - XR CHEST 1 [id number] 13:34:00 FAX: Dillon Baker MD [phone] [place]: [address] St: ADM FAX: Sena Sewell MD [phone] Name: BARTOLOME ARGUELLES [facility] : 1930 Age/S: 88/F [address] [facility] [address] #: [id number] Loc: V.S25 [place] [address] Phys: Sena Sewell MD Acct: [id number] Dis Date: Status: ADM IN PHONE #: [phone] Exam Date: 09/21/2018 1322 FAX #: [phone] Reason: DOBHOFF INSERTION EXAMS: CPT CODE: [id number] XR CHEST 1 V 15240 HISTORY: Dobbhoff insertion. COMPARISON: September 28, 2018. 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 Dobbhoff tube tip extending into the second portion of the duodenum in good position. Suboptimal inspiration. Dependent changes. No infiltrates or congestion with lung scarring. Cardiomegaly. IMPRESSION: Dobbhoff tube tip in the second portion of the duodenum in good position. at 8170 Reported and signed by: Mikael Cha M.D. CC: Dillon Baker MD; Sena Sewell MD Technologist: Blanca Silva(R); Maggie Roger RT(R) Trnscrd Date/Time/By: 09/21/2018 (3056) : By: [email or web address] Orig Print D/T: S: 09/21/2018 (4300) PAGE 1 Signed Report CBC W/MANUAL [id number] 09:10:00* Test Item Value Reference Range Comments WHITE BLOOD CELL (test code=WBC) 10.5 K/mm3 4.5-12.5 RED BLOOD CELL (test code=RBC) 3.04 mill/mm3 3.7-5.2 HEMOGLOBIN (test code=HGB) 8.8 gram/dL 11.5-15.5 HEMATOCRIT (test code=HCT) 27.4 % 36.0-46.0 MEAN CELL VOLUME (test code=MCV) 90.1 fL 80-98 MEAN CELL HGB (test code=MCH) 28.9 picogram 27.0-33.0 MEAN CELL HGB CONCETRATION (test code=MCHC) 32.1 gram/dL 33.0-36.0 RED CELL DISTRIBUTION WIDTH (test code=RDW) 19.7 % 11.6-16.2 RED CELL DISTRIBUTION WIDTH SD (test code=RDW-SD) 61.8 fL 37.0-51.0 PLATELET COUNT (test code=PLT) 209 K/mm3 150-450 MEAN PLATELET VOLUME (test code=MPV) 10.9 fL 6.7-11.0 IMMATURE GRANULOCYTE % (test code=IG%) 7.2 % 0.0-5.0 "The appearance of immature granulocytes (myelocytes,pro-myelocytes, meta-myelocytes) in the peripheral blood ofnon- individuals can indicate a response toinfection, inflammation, or other stimulus to the bonemarrow" NUCLEATED RBC % (test code=NRBC%) 4.4 % 0-0 NEUTROPHIL # (test code=NT#) 8.09 K/mm3 1.8-7.7 IMMATURE GRANULOCYTE # (test code=IG#) 0.75 x10 3/uL 0-0.03 LYMPHOCYTE # (test code=LY#) 0.33 K/mm3 1.0-5.0 MONOCYTE # (test code=MO#) 1.08 K/mm3 0-0.8 EOSINOPHIL # (test code=EO#) 0.18 K/mm3 0.0-0.5 BASOPHIL # (test code=BA#) 0.02 K/mm3 0.0-0.2 NUCLEATED RBC # (test code=NRBC#) 0.46 K/mm3 0.0-0.1 MANUAL DIFF REQUIRED (test code=MDIFF) YES STAIN ACCEPTABILITY (test code=STN ACCEPTABLE) STAIN ACCEPTABLE TOTAL CELLS COUNTED (test code=TCC) 113 #CELLS SEGMENTED NEUTROPHILS (test code=SEG) 77.9 % 39-69 BAND NEUTROPHIL (test code=BAND) 0.9 % 0-10 LYMPHOCYTE (test code=LYMPH) 4.4 % 25-55 REACTIVE LYMPH (test code=RELYMPH) 1.8 % MONOCYTE (test code=MON) 15.0 % 0-10 EOSINOPHIL (test code=EOS) 0 % 0.0-5.0 BASOPHIL (test code=BASO) 0 % 0-1.0 METAMYELOCYTE (test code=META) 0 % 0-0 MYELOCYTE (test code=MYELO) 0 % 0.0-0.0 PROMYELOCYTE (test code=PROM) 0 % 0-0 POLYCHROMASIA (test code=POLC) 1+ POIKILOCYTOSIS (test code=POIK) 1+ ANISOCYTOSIS (test code=ANISO) 1+ MICROCYTOSIS (test code=MICR) 1+ TEAR DROP CELLS (test code=TEAR) 1+ ELLIPTOCYTES (test code=ELL) 1+ PLATELET ESTIMATE (test code=PLTEST) ADEQUATE PLATELET MORPHOLOGY (test code=PLTMORPH) SIZE VARIABLE IMMATURE FORMS (test code=IMMAT) 0 % 0-0 BASIC METABOLIC [id number] 06:47:00* Test Item Value Reference Range Comments SODIUM (test code=NA) 143 mmol/L 136-145 POTASSIUM (test code=K) 4.0 mmol/L 3.5-5.1 CHLORIDE (test code=CL) 114.0 mmol/L 98-107 CARBON DIOXIDE (test code=CO2) mmol/L 21-32 ANION GAP (test code=GAP) 10-20 GLUCOSE (test code=GLU) mg/dL 74-106 BLOOD UREA NITROGEN (test code=BUN) mg/dL 7-18 GLOMERULAR FILTRATION RATE (test code=GFR) mL/min >=60 CREATININE (test code=CREAT) mg/dL 0.55-1.02 BUN/CREATININE RATIO (test code=BUN/CREA) 10-20 CALCIUM (test code=CA) mg/dL 8.5-10.1 [id number] 06:47:00* Test Item Value Reference Range Comments MAGNESIUM (test code=MAG) mg/dL 1.8-2.4 BASIC METABOLIC [id number] 06:47:00* Test Item Value Reference Range Comments SODIUM (test code=NA) 143 mmol/L 136-145 POTASSIUM (test code=K) 4.0 mmol/L 3.5-5.1 CHLORIDE (test code=CL) 114.0 mmol/L 98-107 CARBON DIOXIDE (test code=CO2) 25.0 mmol/L 21-32 ANION GAP (test code=GAP) 8.0 10-20 GLUCOSE (test code=GLU) 112 mg/dL 74-106 BLOOD UREA NITROGEN (test code=BUN) 70 mg/dL 7-18 GLOMERULAR FILTRATION RATE (test code=GFR) 30 mL/min >=60 Estimated GFR by using Modified MDRD formula.Chronic kidney disease is defined as either kidney damageor GFR <60 mL/min/1.73 m2 for >3 months. CREATININE (test code=CREAT) 1.60 mg/dL 0.55-1.02 Note change in reference range due to change in reagent. BUN/CREATININE RATIO (test code=BUN/CREA) 43.8 10-20 CALCIUM (test code=CA) 7.8 mg/dL 8.5-10.1 [id number] 06:47:00* Test Item Value Reference Range Comments MAGNESIUM (test code=MAG) 2.8 mg/dL 1.8-2.4 CBC W/MANUAL [id number] 06:34:00* Test Item Value Reference Range Comments WHITE BLOOD CELL (test code=WBC) 10.5 K/mm3 4.5-12.5 RED BLOOD CELL (test code=RBC) 3.04 mill/mm3 3.7-5.2 HEMOGLOBIN (test code=HGB) 8.8 gram/dL 11.5-15.5 HEMATOCRIT (test code=HCT) 27.4 % 36.0-46.0 MEAN CELL VOLUME (test code=MCV) 90.1 fL 80-98 MEAN CELL HGB (test code=MCH) 28.9 picogram 27.0-33.0 MEAN CELL HGB CONCETRATION (test code=MCHC) 32.1 gram/dL 33.0-36.0 RED CELL DISTRIBUTION WIDTH (test code=RDW) 19.7 % 11.6-16.2 RED CELL DISTRIBUTION WIDTH SD (test code=RDW-SD) 61.8 fL 37.0-51.0 PLATELET COUNT (test code=PLT) 209 K/mm3 150-450 MEAN PLATELET VOLUME (test code=MPV) 10.9 fL 6.7-11.0 IMMATURE GRANULOCYTE % (test code=IG%) 7.2 % 0.0-5.0 "The appearance of immature granulocytes (myelocytes,pro-myelocytes, meta-myelocytes) in the peripheral blood ofnon- individuals can indicate a response toinfection, inflammation, or other stimulus to the bonemarrow" NUCLEATED RBC % (test code=NRBC%) 4.4 % 0-0 NEUTROPHIL # (test code=NT#) 8.09 K/mm3 1.8-7.7 IMMATURE GRANULOCYTE # (test code=IG#) 0.75 x10 3/uL 0-0.03 LYMPHOCYTE # (test code=LY#) 0.33 K/mm3 1.0-5.0 MONOCYTE # (test code=MO#) 1.08 K/mm3 0-0.8 EOSINOPHIL # (test code=EO#) 0.18 K/mm3 0.0-0.5 BASOPHIL # (test code=BA#) 0.02 K/mm3 0.0-0.2 NUCLEATED RBC # (test code=NRBC#) 0.46 K/mm3 0.0-0.1 MANUAL DIFF REQUIRED (test code=MDIFF) YES STAIN ACCEPTABILITY (test code=STN ACCEPTABLE) TOTAL CELLS COUNTED (test code=TCC) #CELLS SEGMENTED NEUTROPHILS (test code=SEG) % 39-69 LYMPHOCYTE (test code=LYMPH) % 25-55 MONOCYTE (test code=MON) % 0-10 EOSINOPHIL (test code=EOS) % 0.0-5.0 CABOT RINGS (test code=CAB) MORPHOLOGY COMMENT (test code=MOC) PLATELET ESTIMATE (test code=PLTEST) PLATELET MORPHOLOGY (test code=PLTMORPH) CBC W/MANUAL [id number] 06:34:00* Test Item Value Reference Range Comments WHITE BLOOD CELL (test code=WBC) 10.5 K/mm3 4.5-12.5 RED BLOOD CELL (test code=RBC) 3.04 mill/mm3 3.7-5.2 HEMOGLOBIN (test code=HGB) 8.8 gram/dL 11.5-15.5 HEMATOCRIT (test code=HCT) 27.4 % 36.0-46.0 MEAN CELL VOLUME (test code=MCV) 90.1 fL 80-98 MEAN CELL HGB (test code=MCH) 28.9 picogram 27.0-33.0 MEAN CELL HGB CONCETRATION (test code=MCHC) 32.1 gram/dL 33.0-36.0 RED CELL DISTRIBUTION WIDTH (test code=RDW) 19.7 % 11.6-16.2 RED CELL DISTRIBUTION WIDTH SD (test code=RDW-SD) 61.8 fL 37.0-51.0 PLATELET COUNT (test code=PLT) 209 K/mm3 150-450 MEAN PLATELET VOLUME (test code=MPV) 10.9 fL 6.7-11.0 IMMATURE GRANULOCYTE % (test code=IG%) 7.2 % 0.0-5.0 "The appearance of immature granulocytes (myelocytes,pro-myelocytes, meta-myelocytes) in the peripheral blood ofnon- individuals can indicate a response toinfection, inflammation, or other stimulus to the bonemarrow" NUCLEATED RBC % (test code=NRBC%) 4.4 % 0-0 NEUTROPHIL # (test code=NT#) 8.09 K/mm3 1.8-7.7 IMMATURE GRANULOCYTE # (test code=IG#) 0.75 x10 3/uL 0-0.03 LYMPHOCYTE # (test code=LY#) 0.33 K/mm3 1.0-5.0 MONOCYTE # (test code=MO#) 1.08 K/mm3 0-0.8 EOSINOPHIL # (test code=EO#) 0.18 K/mm3 0.0-0.5 BASOPHIL # (test code=BA#) 0.02 K/mm3 0.0-0.2 NUCLEATED RBC # (test code=NRBC#) 0.46 K/mm3 0.0-0.1 MANUAL DIFF REQUIRED (test code=MDIFF) YES STAIN ACCEPTABILITY (test code=STN ACCEPTABLE) TOTAL CELLS COUNTED (test code=TCC) #CELLS SEGMENTED NEUTROPHILS (test code=SEG) % 39-69 LYMPHOCYTE (test code=LYMPH) % 25-55 MONOCYTE (test code=MON) % 0-10 EOSINOPHIL (test code=EOS) % 0.0-5.0 CABOT RINGS (test code=CAB) MORPHOLOGY COMMENT (test code=MOC) PLATELET ESTIMATE (test code=PLTEST) PLATELET MORPHOLOGY (test code=PLTMORPH) CBC W/MANUAL [id number] 06:34:00* Test Item Value Reference Range Comments WHITE BLOOD CELL (test code=WBC) 10.5 K/mm3 4.5-12.5 RED BLOOD CELL (test code=RBC) 3.04 mill/mm3 3.7-5.2 HEMOGLOBIN (test code=HGB) 8.8 gram/dL 11.5-15.5 HEMATOCRIT (test code=HCT) 27.4 % 36.0-46.0 MEAN CELL VOLUME (test code=MCV) 90.1 fL 80-98 MEAN CELL HGB (test code=MCH) 28.9 picogram 27.0-33.0 MEAN CELL HGB CONCETRATION (test code=MCHC) 32.1 gram/dL 33.0-36.0 RED CELL DISTRIBUTION WIDTH (test code=RDW) 19.7 % 11.6-16.2 RED CELL DISTRIBUTION WIDTH SD (test code=RDW-SD) 61.8 fL 37.0-51.0 PLATELET COUNT (test code=PLT) 209 K/mm3 150-450 MEAN PLATELET VOLUME (test code=MPV) 10.9 fL 6.7-11.0 IMMATURE GRANULOCYTE % (test code=IG%) 7.2 % 0.0-5.0 "The appearance of immature granulocytes (myelocytes,pro-myelocytes, meta-myelocytes) in the peripheral blood ofnon- individuals can indicate a response toinfection, inflammation, or other stimulus to the bonemarrow" NUCLEATED RBC % (test code=NRBC%) 4.4 % 0-0 NEUTROPHIL # (test code=NT#) 8.09 K/mm3 1.8-7.7 IMMATURE GRANULOCYTE # (test code=IG#) 0.75 x10 3/uL 0-0.03 LYMPHOCYTE # (test code=LY#) 0.33 K/mm3 1.0-5.0 MONOCYTE # (test code=MO#) 1.08 K/mm3 0-0.8 EOSINOPHIL # (test code=EO#) 0.18 K/mm3 0.0-0.5 BASOPHIL # (test code=BA#) 0.02 K/mm3 0.0-0.2 NUCLEATED RBC # (test code=NRBC#) 0.46 K/mm3 0.0-0.1 MANUAL DIFF REQUIRED (test code=MDIFF) YES STAIN ACCEPTABILITY (test code=STN ACCEPTABLE) TOTAL CELLS COUNTED (test code=TCC) #CELLS SEGMENTED NEUTROPHILS (test code=SEG) % 39-69 LYMPHOCYTE (test code=LYMPH) % 25-55 MONOCYTE (test code=MON) % 0-10 EOSINOPHIL (test code=EOS) % 0.0-5.0 MORPHOLOGY COMMENT (test code=MOC) PLATELET ESTIMATE (test code=PLTEST) PLATELET MORPHOLOGY (test code=PLTMORPH) CBC W/MANUAL [id number] 06:34:00* Test Item Value Reference Range Comments WHITE BLOOD CELL (test code=WBC) 10.5 K/mm3 4.5-12.5 RED BLOOD CELL (test code=RBC) 3.04 mill/mm3 3.7-5.2 HEMOGLOBIN (test code=HGB) 8.8 gram/dL 11.5-15.5 HEMATOCRIT (test code=HCT) 27.4 % 36.0-46.0 MEAN CELL VOLUME (test code=MCV) 90.1 fL 80-98 MEAN CELL HGB (test code=MCH) 28.9 picogram 27.0-33.0 MEAN CELL HGB CONCETRATION (test code=MCHC) 32.1 gram/dL 33.0-36.0 RED CELL DISTRIBUTION WIDTH (test code=RDW) 19.7 % 11.6-16.2 RED CELL DISTRIBUTION WIDTH SD (test code=RDW-SD) 61.8 fL 37.0-51.0 PLATELET COUNT (test code=PLT) 209 K/mm3 150-450 MEAN PLATELET VOLUME (test code=MPV) 10.9 fL 6.7-11.0 IMMATURE GRANULOCYTE % (test code=IG%) 7.2 % 0.0-5.0 "The appearance of immature granulocytes (myelocytes,pro-myelocytes, meta-myelocytes) in the peripheral blood ofnon- individuals can indicate a response toinfection, inflammation, or other stimulus to the bonemarrow" NUCLEATED RBC % (test code=NRBC%) 4.4 % 0-0 NEUTROPHIL # (test code=NT#) 8.09 K/mm3 1.8-7.7 IMMATURE GRANULOCYTE # (test code=IG#) 0.75 x10 3/uL 0-0.03 LYMPHOCYTE # (test code=LY#) 0.33 K/mm3 1.0-5.0 MONOCYTE # (test code=MO#) 1.08 K/mm3 0-0.8 EOSINOPHIL # (test code=EO#) 0.18 K/mm3 0.0-0.5 BASOPHIL # (test code=BA#) 0.02 K/mm3 0.0-0.2 NUCLEATED RBC # (test code=NRBC#) 0.46 K/mm3 0.0-0.1 MANUAL DIFF REQUIRED (test code=MDIFF) YES STAIN ACCEPTABILITY (test code=STN ACCEPTABLE) TOTAL CELLS COUNTED (test code=TCC) #CELLS SEGMENTED NEUTROPHILS (test code=SEG) % 39-69 LYMPHOCYTE (test code=LYMPH) % 25-55 MONOCYTE (test code=MON) % 0-10 MORPHOLOGY COMMENT (test code=MOC) PLATELET ESTIMATE (test code=PLTEST) PLATELET MORPHOLOGY (test code=PLTMORPH) CBC W/MANUAL [id number] 06:34:00* Test Item Value Reference Range Comments WHITE BLOOD CELL (test code=WBC) 10.5 K/mm3 4.5-12.5 RED BLOOD CELL (test code=RBC) 3.04 mill/mm3 3.7-5.2 HEMOGLOBIN (test code=HGB) 8.8 gram/dL 11.5-15.5 HEMATOCRIT (test code=HCT) 27.4 % 36.0-46.0 MEAN CELL VOLUME (test code=MCV) 90.1 fL 80-98 MEAN CELL HGB (test code=MCH) 28.9 picogram 27.0-33.0 MEAN CELL HGB CONCETRATION (test code=MCHC) 32.1 gram/dL 33.0-36.0 RED CELL DISTRIBUTION WIDTH (test code=RDW) 19.7 % 11.6-16.2 RED CELL DISTRIBUTION WIDTH SD (test code=RDW-SD) 61.8 fL 37.0-51.0 PLATELET COUNT (test code=PLT) 209 K/mm3 150-450 MEAN PLATELET VOLUME (test code=MPV) 10.9 fL 6.7-11.0 IMMATURE GRANULOCYTE % (test code=IG%) 7.2 % 0.0-5.0 "The appearance of immature granulocytes (myelocytes,pro-myelocytes, meta-myelocytes) in the peripheral blood ofnon- individuals can indicate a response toinfection, inflammation, or other stimulus to the bonemarrow" NUCLEATED RBC % (test code=NRBC%) 4.4 % 0-0 NEUTROPHIL # (test code=NT#) 8.09 K/mm3 1.8-7.7 IMMATURE GRANULOCYTE # (test code=IG#) 0.75 x10 3/uL 0-0.03 LYMPHOCYTE # (test code=LY#) 0.33 K/mm3 1.0-5.0 MONOCYTE # (test code=MO#) 1.08 K/mm3 0-0.8 EOSINOPHIL # (test code=EO#) 0.18 K/mm3 0.0-0.5 BASOPHIL # (test code=BA#) 0.02 K/mm3 0.0-0.2 NUCLEATED RBC # (test code=NRBC#) 0.46 K/mm3 0.0-0.1 MANUAL DIFF REQUIRED (test code=MDIFF) YES STAIN ACCEPTABILITY (test code=STN ACCEPTABLE) TOTAL CELLS COUNTED (test code=TCC) #CELLS SEGMENTED NEUTROPHILS (test code=SEG) % 39-69 LYMPHOCYTE (test code=LYMPH) % 25-55 MONOCYTE (test code=MON) % 0-10 EOSINOPHIL (test code=EOS) % 0.0-5.0 CABOT RINGS (test code=CAB) MORPHOLOGY COMMENT (test code=MOC) PLATELET ESTIMATE (test code=PLTEST) PLATELET MORPHOLOGY (test code=PLTMORPH) - CT HEAD/BRAIN W/O [id number] 20:56:00 Name: BARTOLOME ARGUELLES [facility] : 1930 Age/S: 88 / F [address] Unit #: [id number] Loc: [place] [address] Phys: Lydia Snell MD Acct: [id number] Dis Date: Status: ADM IN PHONE #: [phone] Exam Date: 09/20/20182052 FAX #: [phone] Reason: AMS, prolonged EXAMS: CPT CODE: [id number] CT HEAD/BRAIN W/O CONT [id number] REASON FOR EXAM: AMS, prolonged EXAM ORDER DATE: 09/20/2018 5:03 PM Ordering M.Meg.: Lydia Snell MD PROCEDURE: - CT HEAD/BRAIN W/O CONT COMPARISON: FINDINGS: CT images of the brain were obtained without IV contrast. Dose modulation, iterative reconstruction, and/or weight based adjustment of the MA/KV was utilized to reduce the radiation dose to as low as reasonably achievable. Mild patchy low densities appearance of the paraventricular region noted consistent with nonspecific white matter disease. The murguia-white matter delineation is unremarkable. The ventricles, cisterns, and sulci are unremarkable. There is no evidence of hemorrhage, mass, mass effect. There is no evidence of acute or old infarct. The calvarium is intact. IMPRESSION: Nonspecific deep white matter disease. No new findings at 2055 Reported and signed by: Mike Stearns M.D. CC: Dillon Baker MD; Lydia Snell MD Technologist:Kortney CORTES(R); PEDRO PABLO Painting CTDI: DLP: Trnscb Date/Time: 09/20/2018 (2055) tESVIN Orig Print D/T: S: 09/20/2018 (2058) PAGE 1 Signed Report BASIC METABOLIC [id number] 06:17:00* Test Item Value Reference Range Comments SODIUM (test code=NA) 146 mmol/L 136-145 POTASSIUM (test code=K) 3.8 mmol/L 3.5-5.1 CHLORIDE (test code=CL) 114.0 mmol/L 98-107 CARBON DIOXIDE (test code=CO2) 23.0 mmol/L 21-32 ANION GAP (test code=GAP) 12.8 10-20 GLUCOSE (test code=GLU) 117 mg/dL 74-106 BLOOD UREA NITROGEN (test code=BUN) 78 mg/dL 7-18 GLOMERULAR FILTRATION RATE (test code=GFR) 27 mL/min >=60 Estimated GFR by using Modified MDRD formula.Chronic kidney disease is defined as either kidney damageor GFR <60 mL/min/1.73 m2 for >3 months. CREATININE (test code=CREAT) 1.80 mg/dL 0.55-1.02 Note change in reference range due to change in reagent. BUN/CREATININE RATIO (test code=BUN/CREA) 43.3 10-20 CALCIUM (test code=CA) 7.8 mg/dL 8.5-10.1 BASIC METABOLIC [id number] 06:16:00* Test Item Value Reference Range Comments SODIUM (test code=NA) 146 mmol/L 136-145 POTASSIUM (test code=K) 3.8 mmol/L 3.5-5.1 CHLORIDE (test code=CL) 114.0 mmol/L 98-107 CARBON DIOXIDE (test code=CO2) mmol/L 21-32 ANION GAP (test code=GAP) 10-20 GLUCOSE (test code=GLU) mg/dL 74-106 BLOOD UREA NITROGEN (test code=BUN) mg/dL 7-18 GLOMERULAR FILTRATION RATE (test code=GFR) mL/min >=60 CREATININE (test code=CREAT) mg/dL 0.55-1.02 BUN/CREATININE RATIO (test code=BUN/CREA) 10-20 CALCIUM (test code=CA) mg/dL 8.5-10.1 CBC W/AUTO [id number] 06:08:00* Test Item Value Reference Range Comments WHITE BLOOD CELL (test code=WBC) 9.7 K/mm3 4.5-12.5 RED BLOOD CELL (test code=RBC) 3.21 mill/mm3 3.7-5.2 HEMOGLOBIN (test code=HGB) 9.1 gram/dL 11.5-15.5 HEMATOCRIT (test code=HCT) 29.3 % 36.0-46.0 MEAN CELL VOLUME (test code=MCV) 91.3 fL 80-98 MEAN CELL HGB (test code=MCH) 28.3 picogram 27.0-33.0 MEAN CELL HGB CONCETRATION (test code=MCHC) 31.1 gram/dL 33.0-36.0 RED CELL DISTRIBUTION WIDTH (test code=RDW) 19.0 % 11.6-16.2 RED CELL DISTRIBUTION WIDTH SD (test code=RDW-SD) 60.8 fL 37.0-51.0 PLATELET COUNT (test code=PLT) 209 K/mm3 150-450 RESULT VERIFIED BY REPEAT ANALYSIS MEAN PLATELET VOLUME (test code=MPV) 10.9 fL 6.7-11.0 NEUTROPHIL % (test code=NT%) 77.6 % 39.0-69.0 IMMATURE GRANULOCYTE % (test code=IG%) 5.7 % 0.0-5.0 "The appearance of immature granulocytes (myelocytes,pro-myelocytes, meta-myelocytes) in the peripheral blood ofnon- individuals can indicate a response toinfection, inflammation, or other stimulus to the bonemarrow" LYMPHOCYTE % (test code=LY%) 3.9 % 25.0-55.0 MONOCYTE % (test code=MO%) 11.6 % 0.0-10.0 EOSINOPHIL % (test code=EO%) 0.9 % 0.0-5.0 BASOPHIL % (test code=BA%) 0.3 % 0.0-1.0 NUCLEATED RBC % (test code=NRBC%) 4.4 % 0-0 NEUTROPHIL # (test code=NT#) 7.52 K/mm3 1.8-7.7 IMMATURE GRANULOCYTE # (test code=IG#) 0.55 x10 3/uL 0-0.03 LYMPHOCYTE # (test code=LY#) 0.38 K/mm3 1.0-5.0 MONOCYTE # (test code=MO#) 1.12 K/mm3 0-0.8 EOSINOPHIL # (test code=EO#) 0.09 K/mm3 0.0-0.5 BASOPHIL # (test code=BA#) 0.03 K/mm3 0.0-0.2 NUCLEATED RBC # (test code=NRBC#) 0.43 K/mm3 0.0-0.1 MANUAL DIFF REQUIRED (test code=MDIFF) NO BASIC METABOLIC [id number] 07:22:00* Test Item Value Reference Range Comments SODIUM (test code=NA) 149 mmol/L 136-145 POTASSIUM (test code=K) 3.9 mmol/L 3.5-5.1 CHLORIDE (test code=CL) 116.0 mmol/L 98-107 CARBON DIOXIDE (test code=CO2) 23.0 mmol/L 21-32 ANION GAP (test code=GAP) 13.9 10-20 GLUCOSE (test code=GLU) 142 mg/dL 74-106 BLOOD UREA NITROGEN (test code=BUN) 89 mg/dL 7-18 GLOMERULAR FILTRATION RATE (test code=GFR) 21 mL/min >=60 Estimated GFR by using Modified MDRD formula.Chronic kidney disease is defined as either kidney damageor GFR <60 mL/min/1.73 m2 for >3 months. CREATININE (test code=CREAT) 2.20 mg/dL 0.55-1.02 Note change in reference range due to change in reagent. BUN/CREATININE RATIO (test code=BUN/CREA) 40.5 10-20 CALCIUM (test code=CA) 8.2 mg/dL 8.5-10.1 BASIC METABOLIC [id number] 07:19:00* Test Item Value Reference Range Comments SODIUM (test code=NA) 149 mmol/L 136-145 POTASSIUM (test code=K) 3.9 mmol/L 3.5-5.1 CHLORIDE (test code=CL) 116.0 mmol/L 98-107 CARBON DIOXIDE (test code=CO2) mmol/L 21-32 ANION GAP (test code=GAP) 10-20 GLUCOSE (test code=GLU) mg/dL 74-106 BLOOD UREA NITROGEN (test code=BUN) mg/dL 7-18 GLOMERULAR FILTRATION RATE (test code=GFR) mL/min >=60 CREATININE (test code=CREAT) mg/dL 0.55-1.02 BUN/CREATININE RATIO (test code=BUN/CREA) 10-20 CALCIUM (test code=CA) mg/dL 8.5-10.1 CBC W/AUTO [id number] 07:00:00* Test Item Value Reference Range Comments WHITE BLOOD CELL (test code=WBC) 9.2 K/mm3 4.5-12.5 RED BLOOD CELL (test code=RBC) 3.34 mill/mm3 3.7-5.2 HEMOGLOBIN (test code=HGB) 9.6 gram/dL 11.5-15.5 HEMATOCRIT (test code=HCT) 30.6 % 36.0-46.0 MEAN CELL VOLUME (test code=MCV) 91.6 fL 80-98 MEAN CELL HGB (test code=MCH) 28.7 picogram 27.0-33.0 MEAN CELL HGB CONCETRATION (test code=MCHC) 31.4 gram/dL 33.0-36.0 RED CELL DISTRIBUTION WIDTH (test code=RDW) 19.3 % 11.6-16.2 RED CELL DISTRIBUTION WIDTH SD (test code=RDW-SD) 62.4 fL 37.0-51.0 PLATELET COUNT (test code=PLT) 206 K/mm3 150-450 MEAN PLATELET VOLUME (test code=MPV) 10.9 fL 6.7-11.0 NEUTROPHIL % (test code=NT%) 80.5 % 39.0-69.0 IMMATURE GRANULOCYTE % (test code=IG%) 4.6 % 0.0-5.0 LYMPHOCYTE % (test code=LY%) 3.3 % 25.0-55.0 MONOCYTE % (test code=MO%) 11.1 % 0.0-10.0 EOSINOPHIL % (test code=EO%) 0.1 % 0.0-5.0 BASOPHIL % (test code=BA%) 0.4 % 0.0-1.0 NUCLEATED RBC % (test code=NRBC%) 4.0 % 0-0 NEUTROPHIL # (test code=NT#) 7.44 K/mm3 1.8-7.7 IMMATURE GRANULOCYTE # (test code=IG#) 0.42 x10 3/uL 0-0.03 LYMPHOCYTE # (test code=LY#) 0.30 K/mm3 1.0-5.0 MONOCYTE # (test code=MO#) 1.02 K/mm3 0-0.8 EOSINOPHIL # (test code=EO#) 0.01 K/mm3 0.0-0.5 BASOPHIL # (test code=BA#) 0.04 K/mm3 0.0-0.2 NUCLEATED RBC # (test code=NRBC#) 0.37 K/mm3 0.0-0.1 MANUAL DIFF REQUIRED (test code=MDIFF) NO URINALYSIS [id number] 14:24:00* Test Item Value Reference Range Comments UA COLOR (test code=COLU) YELLOW YELLOW UA APPEARANCE (test code=APPU) CLEAR CLEAR UA GLUCOSE DIPSTICK (test code=DGLUU) NEGATIVE mg/dL NEGATIVE UA BILIRUBIN DIPSTICK (test code=BILU) NEGATIVE mg/dL NEGATIVE UA KETONE DIPSTICK (test code=KETU) NEGATIVE mg/dL NEGATIVE UA SPECIFIC GRAVITY (test code=SGU) 1.018 1.001-1.035 UA BLOOD DIPSTICK (test code=RERE) 0.06 mg/dL (1+) mg/dL NEGATIVE UA PH DIPSTICK (test code=DEMETRIO) 5.5 5.0-8.0 UA PROTEIN DIPSTICK (test code=PROU) 50 (1+) mg/dL NEGATIVE UA UROBILINIOGEN DIPSTICK (test code=URO) Normal mg/dL NEGATIVE UA NITRITE DIPSTICK (test code=LAYLA) NEGATIVE NEGATIVE UA LEUKOCYTE ESTERASE W REFLEX (test code=LEUUR) NEGATIVE [place]/uL NEGATIVE UA WBC (test code=WBCU) per HPF 0-5 UA RBC (test code=RBCU) per HPF 0-5 UA EPITHELIAL CELLS (test code=EPIU) per HPF Few UA BACTERIA (test code=BACU) per HPF NONE Urine Source? CatheterURINALYSIS [id number] 14:24:00* Test Item Value Reference Range Comments UA COLOR (test code=COLU) YELLOW YELLOW UA APPEARANCE (test code=APPU) CLEAR CLEAR UA GLUCOSE DIPSTICK (test code=DGLUU) NEGATIVE mg/dL NEGATIVE UA BILIRUBIN DIPSTICK (test code=BILU) NEGATIVE mg/dL NEGATIVE UA KETONE DIPSTICK (test code=KETU) NEGATIVE mg/dL NEGATIVE UA SPECIFIC GRAVITY (test code=SGU) 1.018 1.001-1.035 UA BLOOD DIPSTICK (test code=RERE) 0.06 mg/dL (1+) mg/dL NEGATIVE UA PH DIPSTICK (test code=DEMETROI) 5.5 5.0-8.0 UA PROTEIN DIPSTICK (test code=PROU) 50 (1+) mg/dL NEGATIVE UA UROBILINIOGEN DIPSTICK (test code=URO) Normal mg/dL NEGATIVE UA NITRITE DIPSTICK (test code=LAYLA) NEGATIVE NEGATIVE UA LEUKOCYTE ESTERASE W REFLEX (test code=LEUUR) NEGATIVE [place]/uL NEGATIVE UA WBC (test code=WBCU) 0-5 per HPF 0-5 UA RBC (test code=RBCU) 0-2 #/HPF 0-5 UA EPITHELIAL CELLS (test code=EPIU) FEW per HPF FEW UA BACTERIA (test code=BACU) FEW #/HPF NONE UA HYALINE CAST (test code=HYALU) 0-2 #/LPF 0-5 UA MUCUS (test code=MUCU) FEW #/LPF FEW Urine Source? CatheterTHYROID STIMULATING [id number] 09:54:00* Test Item Value Reference Range Comments THYROID STIMULATING HORMONE (test code=TSH) 0.731 uIU/mL 0.36-3.74 TSH REFERENCE RANGES: EUTHYROID: 0.35 - 4.3 mIU/mL HYPO : > 5.5 mIU/mL HYPER : < 0.35 mIU/mL SPECIMEN COMMENTS: add to labs- XR CHEST 1 [id number] 09:44:00 FAX: Dillon Baker MD [phone] [place]: B St: ADM FAX: Sena Sewell MD [phone] Name: BARTOLOME ARGUELLES [facility] : 1930 Age/S: 88/F [address] [facility] Unit #: [id number] Loc: [address] [place] [address] Phys: Sena Sewell MD Acct: [id number] Dis Date: Status: ADM IN PHONE #: [phone] Exam Date: 09/18/2018918 FAX #: [phone] Reason: DOBHOFF TUBE PLACEMENT EXAMS: CPT CODE: [id number] XR CHEST 1 V 73243 HISTORY: Dobbhoff tube placement. COMPARISON: Chest x- ray from previous day. Dobbhoff tube coiled within the distal antrum in good position. Lung bases are included only is appear unremarkab le. No bowel obstruction. Mild distention of the small bowel loops. IMPRESSION: Dobbhoff tube tip in good position within the distal antrum. at 0944 Reported and signed by: Norma Cha M.D. CC: Dillon Baker MD; Sena Sewell MD Technologist: Blanca Silva(R) Trnscrd Date/Time/By: 09/18/2018 (5690) : By: [email or web address] Orig Print D/T: S: 09/18/2018 (2299) PAGE 1 Signed Report [id number] 09:25:00* Test Item Value Reference Range Comments GLUBED (test code=GLUBED) 137 mg/dL 74-106 Performed by certified skoog machine operator at [facility] BASIC METABOLIC [id number] 06:44:00* Test Item Value Reference Range Comments SODIUM (test code=NA) 150 mmol/L 136-145 POTASSIUM (test code=K) 4.2 mmol/L 3.5-5.1 CHLORIDE (test code=CL) 118.0 mmol/L 98-107 CARBON DIOXIDE (test code=CO2) 22.0 mmol/L 21-32 ANION GAP (test code=GAP) 14.2 10-20 GLUCOSE (test code=GLU) 119 mg/dL 74-106 BLOOD UREA NITROGEN (test code=BUN) 74 mg/dL 7-18 GLOMERULAR FILTRATION RATE (test code=GFR) 22 mL/min >=60 Estimated GFR by using Modified MDRD formula.Chronic kidney disease is defined as either kidney damageor GFR <60 mL/min/1.73 m2 for >3 months. CREATININE (test code=CREAT) 2.10 mg/dL 0.55-1.02 Note change in reference range due to change in reagent. BUN/CREATININE RATIO (test code=BUN/CREA) 35.2 10-20 CALCIUM (test code=CA) 8.1 mg/dL 8.5-10.1 BASIC METABOLIC [id number] 06:42:00* Test Item Value Reference Range Comments SODIUM (test code=NA) 150 mmol/L 136-145 POTASSIUM (test code=K) 4.2 mmol/L 3.5-5.1 CHLORIDE (test code=CL) 118.0 mmol/L 98-107 CARBON DIOXIDE (test code=CO2) mmol/L 21-32 ANION GAP (test code=GAP) 10-20 GLUCOSE (test code=GLU) mg/dL 74-106 BLOOD UREA NITROGEN (test code=BUN) mg/dL 7-18 GLOMERULAR FILTRATION RATE (test code=GFR) mL/min >=60 CREATININE (test code=CREAT) mg/dL 0.55-1.02 BUN/CREATININE RATIO (test code=BUN/CREA) 10-20 CALCIUM (test code=CA) mg/dL 8.5-10.1 B-TYPE NATRIURETIC [id number] 14:44:00* Test Item Value Reference Range Comments B-TYPE NATRIURETIC PEPTIDE (test code=BNP) 1507.15 pgram/mL 0-100 [id number] 14:37:00* Test Item Value Reference Range Comments TROPONIN-I (test code=TROPI) 0.233 ng/mL 0-0.045 - CT HEAD/BRAIN W/O [id number] 13:32:00 Name: BARTOLOME ARGUELLES [facility] : 1930 Age/S: 88 / F [address] [facility] Unit #: [id number] Loc: [place] [address] Phys: Satya Stearns MD Acct: [id number] Dis Date: Status: ADM IN PHONE #: [phone] Exam Date: 09/17/2018 1131 FAX #: [phone] Reason: LETHARGIC, MUTE EXAMS: CPT CODE: [id number] CT HEAD/BRAIN W/O CONT 84035 HISTORY: Lethargic. COMPARISON: September 13, 2018. CT brain without contrast: Automated exposure control. No acute intracranial bleeds or extra-axial collections are noted. No acute territorial vascular infarction is noted. The sulci, gyri, ventricles and subarachnoid spaces and the basilar cisterns are normal for patient's age. No herniation or hydrocephalus or midline shift is noted. Mild periventricular ischemic gliosis is noted. Age- appropriate atrophy is noted as well. Portions of the visualized paranasal sinuses are normal. No obvious bony calvarial defect is noted. IMPRESSION: No acute intracranial bleeds or extra-axial collections. No acute territorial vascular infarction. No herniation or hydrocephalu s or midline shift. 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 at 1330 Reported and signed by: Norma Cha M.D. CC: Dillon Baker MD; Satya Stearns MD Technologist:Laine Montiel RT(R),CT CTDI: DLP: Trnscb D ate/Time: 09/17/2018 (8326) t.[email or web address].[email or web address] Orig Print D/T: S: 09/17/2018 (9946) PAGE 1 Signed Report - XR CHEST 1 [id number] 11:13:00 FAX: Dillon Baker MD [phone] [place]: St: ADM FAX: Kelley Small MD Name: BARTOLOME ARGUELLES [facility] : 1930 Age/S: 88/F [address] [facility] Unit #: [id number] Loc: V[address] [address] Phys: Kelley Small MD Acct: [id number] Dis Date: Status: ADM IN PHONE #: [phone] Exam Date: 09/17/2018 1100 FAX #: [phone] Reason: altered mental status EXAMS: CPT CODE: [id number] XR CHEST 1 V 53005 HISTORY: Confusion. COMPARISON: September 16, 2018. 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 Dependent changes. No acute infiltrates, e ffusion or congestion. Cardiomegaly. IMPRESSION: No acute infiltrates, effusion or congestion. Electronically Sign ed by Dennise Cha on 09/17/2018 at 1113 Reported a nd signed by: Mikael Cha M.D. CC: Dillon Baker MD; Kelley Small MD Technologist: Maggie Roger RT(R); KYLE DRAPER RT(R) Trnscrd Date/Time/By: 09/17/2018 (3413) : By: Ade [email or web address] Orig Print D/T: S: 09/17/2018 (9996) PAG E 1 Signed Report CBC W/AUTO [id number] 08:00:00* Test Item Value Reference Range Comments WHITE BLOOD CELL (test code=WBC) 9.6 K/mm3 4.5-12.5 RED BLOOD CELL (test code=RBC) 3.49 mill/mm3 3.7-5.2 HEMOGLOBIN (test code=HGB) 10.0 gram/dL 11.5-15.5 HEMATOCRIT (test code=HCT) 30.8 % 36.0-46.0 MEAN CELL VOLUME (test code=MCV) 88.3 fL 80-98 MEAN CELL HGB (test code=MCH) 28.7 picogram 27.0-33.0 MEAN CELL HGB CONCETRATION (test code=MCHC) 32.5 gram/dL 33.0-36.0 RED CELL DISTRIBUTION WIDTH (test code=RDW) 18.6 % 11.6-16.2 RED CELL DISTRIBUTION WIDTH SD (test code=RDW-SD) 59.5 fL 37.0-51.0 PLATELET COUNT (test code=PLT) 135 K/mm3 150-450 MEAN PLATELET VOLUME (test code=MPV) 11.7 fL 6.7-11.0 NEUTROPHIL % (test code=NT%) 86.5 % 39.0-69.0 IMMATURE GRANULOCYTE % (test code=IG%) 1.0 % 0.0-5.0 LYMPHOCYTE % (test code=LY%) 2.5 % 25.0-55.0 MONOCYTE % (test code=MO%) 9.9 % 0.0-10.0 EOSINOPHIL % (test code=EO%) 0.0 % 0.0-5.0 BASOPHIL % (test code=BA%) 0.1 % 0.0-1.0 NUCLEATED RBC % (test code=NRBC%) 0.5 % 0-0 NEUTROPHIL # (test code=NT#) 8.32 K/mm3 1.8-7.7 IMMATURE GRANULOCYTE # (test code=IG#) 0.10 x10 3/uL 0-0.03 LYMPHOCYTE # (test code=LY#) 0.24 K/mm3 1.0-5.0 MONOCYTE # (test code=MO#) 0.95 K/mm3 0-0.8 EOSINOPHIL # (test code=EO#) 0.00 K/mm3 0.0-0.5 BASOPHIL # (test code=BA#) 0.01 K/mm3 0.0-0.2 NUCLEATED RBC # (test code=NRBC#) 0.05 K/mm3 0.0-0.1 MANUAL DIFF REQUIRED (test code=MDIFF) NO BLOOD UREA [id number] 07:23:00* Test Item Value Reference Range Comments BLOOD UREA NITROGEN (test code=BUN) 72 mg/dL 7-18 [id number] 07:23:00* Test Item Value Reference Range Comments CREATININE (test code=CREAT) 2.40 mg/dL 0.55-1.02 Note change in reference range due to change in reagent. BASIC METABOLIC [id number] 07:19:00* Test Item Value Reference Range Comments SODIUM (test code=NA) 145 mmol/L 136-145 POTASSIUM (test code=K) 4.3 mmol/L 3.5-5.1 CHLORIDE (test code=CL) 113.0 mmol/L 98-107 CARBON DIOXIDE (test code=CO2) 21.0 mmol/L 21-32 ANION GAP (test code=GAP) 15.3 10-20 GLUCOSE (test code=GLU) 123 mg/dL 74-106 BLOOD UREA NITROGEN (test code=BUN) 70 mg/dL 7-18 GLOMERULAR FILTRATION RATE (test code=GFR) 19 mL/min >=60 Estimated GFR by using Modified MDRD formula.Chronic kidney disease is defined as either kidney damageor GFR <60 mL/min/1.73 m2 for >3 months. CREATININE (test code=CREAT) 2.40 mg/dL 0.55-1.02 Note change in reference range due to change in reagent. BUN/CREATININE RATIO (test code=BUN/CREA) 29.2 10-20 CALCIUM (test code=CA) 8.0 mg/dL 8.5-10.1 UR NA,[id number] 19:33:00* Test Item Value Reference Range Comments UR NA,RANDOM (test code=TIMO) 7 mmol/L 20-110 [id number] 19:20:00* Test Item Value Reference Range Comments GLUBED (test code=GLUBED) 137 mg/dL 74-106 Performed by certified skoog machine operator at [facility] [id number] 08:49:00* Test Item Value Reference Range Comments TROPONIN-I (test code=TROPI) 0.560 ng/mL 0-0.045 - US RETROPERITONEAL [id number] 07:24:00 Name: BARTOLOME ARGUELLES [facility] : 1930 Age/S: 88 / F [address] [facility] Unit #: [id number] Loc: [place] [address] Phys: Sena Sewell MD Acct: [id number] Dis Date: Status: ADM IN PHONE #: [phone] Exam Date: 09/16/2018 0216 FAX #: [phone] Reason: acute renal failure EXAMS: CPT CODE: [id number] US RETROPERITONEAL COM [id number] HISTORY: acute renal failure TECHNIQUE: Static grayscale and color Doppler images from real-time sonographic evaluation of the bilateral kidneys and urinary bladder. FINDINGS: Right kidney measures 9.8 x 4.5 x 4.5 cm. Left kidney measures 10.1 x 3.8 x 4.7 cm. Normal parenchymal echogenicity. Bilateral simple renal cysts measuring up to 2.9 cm. No mass or calculus. Trace bilateral perinephric fluid. No hydronephrosis. Limited evaluation of partially collapsed urinary bladder with indwelling Dor[place] catheter. Small intraperitoneal free fluid. IMPRESSION: Bilateral simple renal cysts. No hydronephrosis. Small intraperitoneal free fluid. at 0724 Reported and signed by: Maame Jones D.O. CC: Dillon Baker MD; Sena Sewell MD Technologist: RENNY CEDENO Trnscb Date/Time: 09/16/2018 (0724) [place] Orig Print D/T: S: 09/16/2018 (0730) Probe: PAGE 1 Signed Report - XR CHEST 1 [id number] 07:17:00 FAX: Mary Gaspar [phone] [place]: St: ADM FAX: Dillon Baker MD [phone] Name: BARTOLOME ARGUELLES [facility] : 1930 Age/S: 88/F [address] [facility] Unit #: [id number] Loc: V.S25 [place] [address] Phys: Mary Gaspar MD Acct: [id number] Dis Date: Status: ADM IN PHONE #: [phone] Exam Date: 09/16/2018419 FAX #: [phone] Reason: sob EXAMS: CPT CODE: [id number] XR CHEST 1 V 28213 CLINICAL HISTORY: Shortness of breath TECHNIQUE: AP chest x-ray COMPARISON: Previous day. IMPRESSION: No significant interval change. Improved bilateral interstitial opacities. Right basilar platelike atelectasis. No pleural effusion. Cardiomegaly. Cardiac pacemaker. 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 at 0717 Reported and signed by: Maame Jones D.O. CC: Mary Gaspar MD; Dillon Baker MD Technologist: ERICA NARAYANAN, RT(R); Poly Orta Trnscrd Date/Time/By: 09/16/2018 (07) : By: Ebenezer BLANCHARD Orig Print D/T: S: 09/16/2018 (9308) PA GE 1 Signed Report PROCALCITONIN (PCT)2018-09-16 06:29:00* Test Item Value Reference Range Comments PROCALCITONIN (PCT) (test code=PROCAL) 3.72 ng/ml Concentration Interpretation (ng/mL) <0.51 Sepsis is not likely. Local bacterial infection is possible. (LOW RISK for progression to Sepsis) 0.51 - 2.00 Sepsis is possible, but other conditions are known to elevate PCT as well. (MODERATE RISK for progression to Sepsis) > 2.00 Sepsis is likely, unless other causes are known. (HIGH RISK for progression to Severe Sepsis or Septic Shock) 10.00 High likelihood of Severe Sepsis or Septic or higher Shock. *Increased PCT levels may not always be related to systemic bacterial infection.*Low PCT levels do not automatically exclude the presence of bacterial infection.*All results should be interpreted taking into account the patients history. COMPREHENSIVE METABOLIC [id number] 05:42:00* Test Item Value Reference Range Comments SODIUM (test code=NA) 144 mmol/L 136-145 POTASSIUM (test code=K) 4.5 mmol/L 3.5-5.1 CHLORIDE (test code=CL) 110.0 mmol/L 98-107 CARBON DIOXIDE (test code=CO2) 22.0 mmol/L 21-32 ANION GAP (test code=GAP) 16.5 10-20 GLUCOSE (test code=GLU) 135 mg/dL 74-106 BLOOD UREA NITROGEN (test code=BUN) 61 mg/dL 7-18 GLOMERULAR FILTRATION RATE (test code=GFR) 15 mL/min >=60 Estimated GFR by using Modified MDRD formula.Chronic kidney disease is defined as either kidney damageor GFR <60 mL/min/1.73 m2 for >3 months. CREATININE (test code=CREAT) 3.00 mg/dL 0.55-1.02 Note change in reference range due to change in reagent. BUN/CREATININE RATIO (test code=BUN/CREA) 20.3 10-20 TOTAL PROTEIN (test code=PROT) 5.8 gram/dL 6.4-8.2 ALBUMIN (test code=ALB) 3.4 g/dL 3.4-5.0 GLOBULIN (test code=GLOB) 2.4 gram/dL 2.7-4.2 ALBUMIN/GLOBULIN RATIO (test code=A/G) 1.4 0.75-1.50 CALCIUM (test code=CA) 7.8 mg/dL 8.5-10.1 BILIRUBIN TOTAL (test code=BILT) 1.30 mg/dL 0.0-1.0 SGOT/AST (test code=AST) 32 IUnit/L 15-37 SGPT/ALT (test code=ALT) 27 IUnit/L 12-78 ALKALINE PHOSPHATASE TOTAL (test code=ALKP) 76 IUnit/L 45-117 Note change in reference range due to change in reagent. [id number] 05:42:00* Test Item Value Reference Range Comments PHOSPHORUS (test code=PHOS) 6.3 mg/dL 2.5-4.9 [id number] 05:42:00* Test Item Value Reference Range Comments MAGNESIUM (test code=MAG) 2.2 mg/dL 1.8-2.4 [id number] 05:42:00* Test Item Value Reference Range Comments TROPONIN-I (test code=TROPI) 0.596 ng/mL 0-0.045 Results called to [id number] by MARIO 09/16/18 0520Critical results verified and read back by Nurse? Y CALCIUM [id number] 05:42:00* Test Item Value Reference Range Comments CALCIUM IONIZED (test code=NARA) 1.10 mmol/L 1.12-1.32 LACTIC [id number] 05:27:00* Test Item Value Reference Range Comments LACTIC ACID (test code=LACT) 1.9 mmol/L 0.4-1.9 B-TYPE NATRIURETIC [id number] 05:22:00* Test Item Value Reference Range Comments B-TYPE NATRIURETIC PEPTIDE (test code=BNP) 1790.26 pgram/mL 0-100 COMPREHENSIVE METABOLIC [id number] 05:21:00* Test Item Value Reference Range Comments SODIUM (test code=NA) 144 mmol/L 136-145 POTASSIUM (test code=K) 4.5 mmol/L 3.5-5.1 CHLORIDE (test code=CL) 110.0 mmol/L 98-107 CARBON DIOXIDE (test code=CO2) 22.0 mmol/L 21-32 ANION GAP (test code=GAP) 16.5 10-20 GLUCOSE (test code=GLU) 135 mg/dL 74-106 BLOOD UREA NITROGEN (test code=BUN) 61 mg/dL 7-18 GLOMERULAR FILTRATION RATE (test code=GFR) 15 mL/min >=60 Estimated GFR by using Modified MDRD formula.Chronic kidney disease is defined as either kidney damageor GFR <60 mL/min/1.73 m2 for >3 months. CREATININE (test code=CREAT) 3.00 mg/dL 0.55-1.02 Note change in reference range due to change in reagent. BUN/CREATININE RATIO (test code=BUN/CREA) 20.3 10-20 TOTAL PROTEIN (test code=PROT) 5.8 gram/dL 6.4-8.2 ALBUMIN (test code=ALB) 3.4 g/dL 3.4-5.0 GLOBULIN (test code=GLOB) 2.4 gram/dL 2.7-4.2 ALBUMIN/GLOBULIN RATIO (test code=A/G) 1.4 0.75-1.50 CALCIUM (test code=CA) 7.8 mg/dL 8.5-10.1 BILIRUBIN TOTAL (test code=BILT) 1.30 mg/dL 0.0-1.0 SGOT/AST (test code=AST) 32 IUnit/L 15-37 SGPT/ALT (test code=ALT) 27 IUnit/L 12-78 ALKALINE PHOSPHATASE TOTAL (test code=ALKP) 76 IUnit/L 45-117 Note change in reference range due to change in reagent. [id number] 05:21:00* Test Item Value Reference Range Comments PHOSPHORUS (test code=PHOS) 6.3 mg/dL 2.5-4.9 [id number] 05:21:00* Test Item Value Reference Range Comments MAGNESIUM (test code=MAG) 2.2 mg/dL 1.8-2.4 [id number] 05:21:00* Test Item Value Reference Range Comments TROPONIN-I (test code=TROPI) 0.596 ng/mL 0-0.045 Results called to [id number] by MARIO 09/16/18 0520Critical results verified and read back by Nurse? Y CALCIUM [id number] 05:21:00* Test Item Value Reference Range Comments CALCIUM IONIZED (test code=NARA) mmol/L 1.12-1.32 [id number] 05:20:00* Test Item Value Reference Range Comments AMMONIA (test code=AMM) 29 umol/L 11-32 COMPREHENSIVE METABOLIC [id number] 05:12:00* Test Item Value Reference Range Comments SODIUM (test code=NA) 144 mmol/L 136-145 POTASSIUM (test code=K) 4.5 mmol/L 3.5-5.1 CHLORIDE (test code=CL) 110.0 mmol/L 98-107 CARBON DIOXIDE (test code=CO2) mmol/L 21-32 ANION GAP (test code=GAP) 10-20 GLUCOSE (test code=GLU) mg/dL 74-106 BLOOD UREA NITROGEN (test code=BUN) mg/dL 7-18 GLOMERULAR FILTRATION RATE (test code=GFR) mL/min >=60 CREATININE (test code=CREAT) mg/dL 0.55-1.02 BUN/CREATININE RATIO (test code=BUN/CREA) 10-20 TOTAL PROTEIN (test code=PROT) gram/dL 6.4-8.2 ALBUMIN (test code=ALB) g/dL 3.4-5.0 GLOBULIN (test code=GLOB) gram/dL 2.7-4.2 ALBUMIN/GLOBULIN RATIO (test code=A/G) 0.75-1.50 CALCIUM (test code=CA) mg/dL 8.5-10.1 BILIRUBIN TOTAL (test code=BILT) mg/dL 0.0-1.0 SGOT/AST (test code=AST) IUnit/L 15-37 SGPT/ALT (test code=ALT) IUnit/L 12-78 ALKALINE PHOSPHATASE TOTAL (test code=ALKP) IUnit/L 45-117 [id number] 05:12:00* Test Item Value Reference Range Comments PHOSPHORUS (test code=PHOS) mg/dL 2.5-4.9 [id number] 05:12:00* Test Item Value Reference Range Comments MAGNESIUM (test code=MAG) mg/dL 1.8-2.4 [id number] 05:12:00* Test Item Value Reference Range Comments TROPONIN-I (test code=TROPI) ng/mL 0-0.045 CALCIUM [id number] 05:12:00* Test Item Value Reference Range Comments CALCIUM IONIZED (test code=NARA) mmol/L 1.12-1.32 ARTERIAL BLOOD [id number] 05:11:00* Test Item Value Reference Range Comments ARTERIAL BLOOD GAS PH (test code=PHA) 7.42 7.35-7.45 ARTERIAL BLOOD GAS PCO2 (test code=PCO2A) 31.2 mm Hg 35-45 ARTERIAL BLOOD GAS PO2 (test code=PO2A) 115.6 mmHg 80-100 BICARBONATE TOTAL HCO3 (test code=HCO3) 19.8 mmol/L 23.0-27.0 BASE EXCESS (test code=VILMA) -3.8 mmol/L -3.0-5.0 Results called to and read back by Benita - 09/16/2018; by Angel AYOUB O2 SATURATION (test code=SATA) 97.4 % 90.0-98.0 ABG TYPE (test code=TYPEA) Arterial FIO2 (test code=FIO2A) 50.0 ABG SITE (test code=SITEA) Rt RADIAL ARTERY MODIFIED ALLENS (test code=MODALL) Yes CHECK PERFORMED HEMATOCRIT (test code=HCT/ABG) 35 % 35-47 TOTAL HGB (test code=THB) 11.9 gram/dL 11.5-15.5 HGB O2 SAT (test code=HBOSAT) 96.6 % 94.00-98.00 CARBOXYHEMOGLOBIN (test code=HOHGBT) 0.3 %totalHg 0.5-1.5 Results called to and read back by Benita 09/16/2018; by Angel METHEMOGLOBIN (test code=METHGB) 0.5 % 0.0-1.50 O2 CONTENT (test code=O2CT) 16.3 % vol 18.0-22.0 PROTHROMBIN [id number] 05:05:00* Test Item Value Reference Range Comments PROTHROMBIN TIME PATIENT (test code=PTP) 13.9 seconds 9.0-14.0 INTERNATIONAL NORMAL RATIO (test code=INR) 1.2 0.8-1.2 The therapeutic range for oral anticoagulant therapy formost indications is an international normalized ratio (INR)of between 2.0 and 3.0. The recommended therapeutic INRrange for various clinical situations is listed below: Clinical Situation INR range Pulmonary e mbolism treatment (2.0-3.0)Venous thrombosis treatmentVenous thrombosis prophylaxis (high risk surgery)Prevention of systemic embolism from: Acute myocardial infarction Valvular heart disease Atrial fibrillation Mechanical prosthetic heart valves (2.5-3.5) IS PATIENT ON ANTICOAGULANTS? [facility] W/AUTO [id number] 05:02:00* Test Item Value Reference Range Comments WHITE BLOOD CELL (test code=WBC) 13.6 K/mm3 4.5-12.5 RED BLOOD CELL (test code=RBC) 3.85 mill/mm3 3.7-5.2 HEMOGLOBIN (test code=HGB) 11.0 gram/dL 11.5-15.5 HEMATOCRIT (test code=HCT) 33.9 % 36.0-46.0 MEAN CELL VOLUME (test code=MCV) 88.1 fL 80-98 MEAN CELL HGB (test code=MCH) 28.6 picogram 27.0-33.0 MEAN CELL HGB CONCETRATION (test code=MCHC) 32.4 gram/dL 33.0-36.0 RED CELL DISTRIBUTION WIDTH (test code=RDW) 18.3 % 11.6-16.2 RED CELL DISTRIBUTION WIDTH SD (test code=RDW-SD) 57.9 fL 37.0-51.0 PLATELET COUNT (test code=PLT) 141 K/mm3 150-450 MEAN PLATELET VOLUME (test code=MPV) 10.9 fL 6.7-11.0 NEUTROPHIL % (test code=NT%) 89.6 % 39.0-69.0 IMMATURE GRANULOCYTE % (test code=IG%) 0.8 % 0.0-5.0 LYMPHOCYTE % (test code=LY%) 2.2 % 25.0-55.0 MONOCYTE % (test code=MO%) 7.3 % 0.0-10.0 EOSINOPHIL % (test code=EO%) 0.0 % 0.0-5.0 BASOPHIL % (test code=BA%) 0.1 % 0.0-1.0 NUCLEATED RBC % (test code=NRBC%) 0.0 % 0-0 NEUTROPHIL # (test code=NT#) 12.22 K/mm3 1.8-7.7 IMMATURE GRANULOCYTE # (test code=IG#) 0.11 x10 3/uL 0-0.03 LYMPHOCYTE # (test code=LY#) 0.30 K/mm3 1.0-5.0 MONOCYTE # (test code=MO#) 1.00 K/mm3 0-0.8 EOSINOPHIL # (test code=EO#) 0.00 K/mm3 0.0-0.5 BASOPHIL # (test code=BA#) 0.01 K/mm3 0.0-0.2 NUCLEATED RBC # (test code=NRBC#) 0.00 K/mm3 0.0-0.1 BASIC METABOLIC [id number] 23:13:00* Test Item Value Reference Range Comments SODIUM (test code=NA) 142 mmol/L 136-145 POTASSIUM (test code=K) 4.7 mmol/L 3.5-5.1 CHLORIDE (test code=CL) 108.0 mmol/L 98-107 CARBON DIOXIDE (test code=CO2) 25.0 mmol/L 21-32 ANION GAP (test code=GAP) 13.7 10-20 GLUCOSE (test code=GLU) 141 mg/dL 74-106 BLOOD UREA NITROGEN (test code=BUN) 57 mg/dL 7-18 GLOMERULAR FILTRATION RATE (test code=GFR) 15 mL/min >=60 Estimated GFR by using Modified MDRD formula.Chronic kidney disease is defined as either kidney damageor GFR <60 mL/min/1.73 m2 for >3 months. CREATININE (test code=CREAT) 3.00 mg/dL 0.55-1.02 Note change in reference range due to change in reagent. BUN/CREATININE RATIO (test code=BUN/CREA) 19.0 10-20 CALCIUM (test code=CA) 8.1 mg/dL 8.5-10.1 [id number] 23:13:00* Test Item Value Reference Range Comments PHOSPHORUS (test code=PHOS) 6.6 mg/dL 2.5-4.9 [id number] 23:13:00* Test Item Value Reference Range Comments MAGNESIUM (test code=MAG) 2.3 mg/dL 1.8-2.4 CALCIUM [id number] 23:13:00* Test Item Value Reference Range Comments CALCIUM IONIZED (test code=NARA) 1.09 mmol/L 1.12-1.32 BASIC METABOLIC [id number] 23:09:00* Test Item Value Reference Range Comments SODIUM (test code=NA) 142 mmol/L 136-145 POTASSIUM (test code=K) 4.7 mmol/L 3.5-5.1 CHLORIDE (test code=CL) 108.0 mmol/L 98-107 CARBON DIOXIDE (test code=CO2) mmol/L 21-32 ANION GAP (test code=GAP) 10-20 GLUCOSE (test code=GLU) mg/dL 74-106 BLOOD UREA NITROGEN (test code=BUN) mg/dL 7-18 GLOMERULAR FILTRATION RATE (test code=GFR) mL/min >=60 CREATININE (test code=CREAT) mg/dL 0.55-1.02 BUN/CREATININE RATIO (test code=BUN/CREA) 10-20 CALCIUM (test code=CA) mg/dL 8.5-10.1 [id number] 23:09:00* Test Item Value Reference Range Comments PHOSPHORUS (test code=PHOS) mg/dL 2.5-4.9 [id number] 23:09:00* Test Item Value Reference Range Comments MAGNESIUM (test code=MAG) mg/dL 1.8-2.4 CALCIUM [id number] 23:09:00* Test Item Value Reference Range Comments CALCIUM IONIZED (test code=NARA) 1.09 mmol/L 1.12-1.32 BASIC METABOLIC [id number] 23:07:00* Test Item Value Reference Range Comments SODIUM (test code=NA) mmol/L 136-145 POTASSIUM (test code=K) mmol/L 3.5-5.1 CHLORIDE (test code=CL) mmol/L 98-107 CARBON DIOXIDE (test code=CO2) mmol/L 21-32 ANION GAP (test code=GAP) 10-20 GLUCOSE (test code=GLU) mg/dL 74-106 BLOOD UREA NITROGEN (test code=BUN) mg/dL 7-18 GLOMERULAR FILTRATION RATE (test code=GFR) mL/min >=60 CREATININE (test code=CREAT) mg/dL 0.55-1.02 BUN/CREATININE RATIO (test code=BUN/CREA) 10-20 CALCIUM (test code=CA) mg/dL 8.5-10.1 [id number] 23:07:00* Test Item Value Reference Range Comments PHOSPHORUS (test code=PHOS) mg/dL 2.5-4.9 [id number] 23:07:00* Test Item Value Reference Range Comments MAGNESIUM (test code=MAG) mg/dL 1.8-2.4 CALCIUM [id number] 23:07:00* Test Item Value Reference Range Comments CALCIUM IONIZED (test code=NARA) 1.09 mmol/L 1.12-1.32 LACTIC [id number] 22:30:00* Test Item Value Reference Range Comments LACTIC ACID (test code=LACT) 3.5 mmol/L 0.4-1.9 Results called to [id number] by 09/15/18 2230Critical results verified and read back by Nurse? Y PROTHROMBIN [id number] 19:25:00* Test Item Value Reference Range Comments PROTHROMBIN TIME PATIENT (test code=PTP) 13.7 seconds 9.0-14.0 INTERNATIONAL NORMAL RATIO (test code=INR) 1.2 0.8-1.2 The therapeutic range for oral anticoagulant therapy formost indications is an international normalized ratio (INR)of between 2.0 and 3.0. The recommended therapeutic INRrange for various clinical situations is listed below: Clinical Situation INR range Pulmonary e mbolism treatment (2.0-3.0)Venous thrombosis treatmentVenous thrombosis prophylaxis (high risk surgery)Prevention of systemic embolism from: Acute myocardial infarction Valvular heart disease Atrial fibrillation Mechanical prosthetic heart valves (2.5-3.5) IS PATIENT ON ANTICOAGULANTS? NTHROMBOPLASTIN TIME [id number] 19:25:00* Test Item Value Reference Range Comments THROMBOPLASTIN TIME PARTIAL (test code=PTT) 22.3 seconds 25.0-36.5 IS PATIENT ON ANTICOAGULANTS? NLACTIC [id number] 18:45:00* Test Item Value Reference Range Comments LACTIC ACID (test code=LACT) 3.9 mmol/L 0.4-1.9 Results called to [id number] by V.LAB.SN 09/15/18 1844Critical results verified and read back by Nurse? Y [id number] 18:43:00* Test Item Value Reference Range Comments D-DIMER (test code=DDIMER) 84712.00 ng/mLFEU 0-500 Results called to [id number] by V.LAB.KP1 09/15/18 1843Critical results verified and read back by Nurse? YClinical Cut-off value for D-Dimer is 500 ng/mL FEU. Comment: The [employer] D- Dimer assay is intended for use asan aid in the diagnosis of venous thromboembolism (VTE)[deep vein thrombosis (DVT) or pulmonary embolism (PE)].The measurement of D-Dimer should not be used as an aid inthe diagnosis of VTE, in patient with: -Therapeutic dose anticoagulant therapy for >24 hours - Fibrinolytic therapy within previous 7 days -Trauma or surgery within previous 4 weeks -Disseminated malignancies -Aortic aneurysm -Sepsis, severe infections, pneumonia, severe skin infections -Liver cirrhosis - BASIC METABOLIC [id number] 18:40:00* Test Item Value Reference Range Comments SODIUM (test code=NA) 142 mmol/L 136-145 POTASSIUM (test code=K) 4.9 mmol/L 3.5-5.1 CHLORIDE (test code=CL) 108.0 mmol/L 98-107 CARBON DIOXIDE (test code=CO2) 24.0 mmol/L 21-32 ANION GAP (test code=GAP) 14.9 10-20 GLUCOSE (test code=GLU) 134 mg/dL 74-106 BLOOD UREA NITROGEN (test code=BUN) 54 mg/dL 7-18 GLOMERULAR FILTRATION RATE (test code=GFR) 14 mL/min >=60 Estimated GFR by using Modified MDRD formula.Chronic kidney disease is defined as either kidney damageor GFR <60 mL/min/1.73 m2 for >3 months. CREATININE (test code=CREAT) 3.10 mg/dL 0.55-1.02 Note change in reference range due to change in reagent. BUN/CREATININE RATIO (test code=BUN/CREA) 17.4 10-20 CALCIUM (test code=CA) 7.8 mg/dL 8.5-10.1 [id number] 18:40:00* Test Item Value Reference Range Comments PHOSPHORUS (test code=PHOS) 7.7 mg/dL 2.5-4.9 [id number] 18:40:00* Test Item Value Reference Range Comments MAGNESIUM (test code=MAG) 2.5 mg/dL 1.8-2.4 [id number] 18:40:00* Test Item Value Reference Range Comments AMMONIA (test code=AMM) 21 umol/L 11-32 - XR CHEST 1 [id number] 18:15:00 FAX: Mary Gaspar [phone] [place]: St: ADM FAX: Dillon Baker MD [phone] Name: BARTOLOME ARGUELLES [facility] : 1930 Age/S: 88/F [address] Unit #: [id number] Loc: V.S25 [place] [address] Phys: Mary Gaspar MD Acct: [id number] Dis Date: Status: ADM IN PHONE #: [phone] Exam Date: 09/15/20181741 FAX #: [phone] Reason: BASELINE-FROM SURGERY EXAMS: CPT CODE: [id number] XR CHEST 1 V 63165 CLINICAL HISTORY: BASELINE-FROM SURGERY; hypoxia TECHNIQUE: AP chest x-ray COMPARISON: Previous day. IMPRESSION: No significant interval change. Bibasilar interstitial opacities. Right basilar platelike atelectasis. No pleural effusion. Cardiomegaly. Cardiac pacemaker. 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 at 181 Reported and signed by: Maame Jones D.O. CC: Mary Gaspar MD; Dillon Baker MD Technologist: Poly Vaughan Trnscrd Date/Time/By: 09/15/2018 (1814) : By: [email or web address] Orig Print D/T: S: 09/15/2018 (1817) PAGE 1 Signed Report BASIC METABOLIC PANEL 2018-09-15 17:47:00* Test Item Value Reference Range Comments SODIUM (test code=NA) 141 mmol/L 136-145 POTASSIUM (test code=K) 4.9 mmol/L 3.5-5.1 CHLORIDE (test code=CL) 109.0 mmol/L 98-107 CARBON DIOXIDE (test code=CO2) 18.0 mmol/L 21-32 ANION GAP (test code=GAP) 18.9 10-20 GLUCOSE (test code=GLU) 154 mg/dL 74-106 BLOOD UREA NITROGEN (test code=BUN) 50 mg/dL 7-18 GLOMERULAR FILTRATION RATE (test code=GFR) 15 mL/min >=60 Estimated GFR by using Modified MDRD formula.Chronic kidney disease is defined as either kidney damageor GFR <60 mL/min/1.73 m2 for >3 months. CREATININE (test code=CREAT) 3.00 mg/dL 0.55-1.02 Note change in reference range due to change in reagent. BUN/CREATININE RATIO (test code=BUN/CREA) 16.7 10-20 CALCIUM (test code=CA) 7.5 mg/dL 8.5-10.1 [id number] 17:13:00* Test Item Value Reference Range Comments GLUBED (test code=GLUBED) 141 mg/dL 74-106 Performed by certified skoog machine operator at [facility] CBC W/AUTO [id number] 17:10:00* Test Item Value Reference Range Comments WHITE BLOOD CELL (test code=WBC) 12.7 K/mm3 4.5-12.5 RED BLOOD CELL (test code=RBC) 4.09 mill/mm3 3.7-5.2 HEMOGLOBIN (test code=HGB) 11.6 gram/dL 11.5-15.5 HEMATOCRIT (test code=HCT) 38.4 % 36.0-46.0 MEAN CELL VOLUME (test code=MCV) 93.9 fL 80-98 MEAN CELL HGB (test code=MCH) 28.4 picogram 27.0-33.0 MEAN CELL HGB CONCETRATION (test code=MCHC) 30.2 gram/dL 33.0-36.0 RED CELL DISTRIBUTION WIDTH (test code=RDW) 18.6 % 11.6-16.2 RED CELL DISTRIBUTION WIDTH SD (test code=RDW-SD) 63.6 fL 37.0-51.0 PLATELET COUNT (test code=PLT) 128 K/mm3 150-450 MEAN PLATELET VOLUME (test code=MPV) 10.9 fL 6.7-11.0 NEUTROPHIL % (test code=NT%) 87.9 % 39.0-69.0 IMMATURE GRANULOCYTE % (test code=IG%) 1.7 % 0.0-5.0 LYMPHOCYTE % (test code=LY%) 3.1 % 25.0-55.0 MONOCYTE % (test code=MO%) 6.6 % 0.0-10.0 EOSINOPHIL % (test code=EO%) 0.3 % 0.0-5.0 BASOPHIL % (test code=BA%) 0.4 % 0.0-1.0 NUCLEATED RBC % (test code=NRBC%) 0.2 % 0-0 NEUTROPHIL # (test code=NT#) 11.12 K/mm3 1.8-7.7 IMMATURE GRANULOCYTE # (test code=IG#) 0.22 x10 3/uL 0-0.03 LYMPHOCYTE # (test code=LY#) 0.39 K/mm3 1.0-5.0 MONOCYTE # (test code=MO#) 0.84 K/mm3 0-0.8 EOSINOPHIL # (test code=EO#) 0.04 K/mm3 0.0-0.5 BASOPHIL # (test code=BA#) 0.05 K/mm3 0.0-0.2 NUCLEATED RBC # (test code=NRBC#) 0.03 K/mm3 0.0-0.1 MANUAL DIFF REQUIRED (test code=MDIFF) NO COMMENTS TO CLIENT REPORTING ASSOCIATE: PT IN PACU 9CBC W/AUTO [id number] 17:08:00* Test Item Value Reference Range Comments WHITE BLOOD CELL (test code=WBC) K/mm3 4.5-12.5 RED BLOOD CELL (test code=RBC) mill/mm3 3.7-5.2 HEMOGLOBIN (test code=HGB) 11.6 gram/dL 11.5-15.5 HEMATOCRIT (test code=HCT) 38.4 % 36.0-46.0 MEAN CELL VOLUME (test code=MCV) fL 80-98 MEAN CELL HGB (test code=MCH) picogram 27.0-33.0 MEAN CELL HGB CONCETRATION (test code=MCHC) gram/dL 33.0-36.0 RED CELL DISTRIBUTION WIDTH (test code=RDW) % 11.6-16.2 RED CELL DISTRIBUTION WIDTH SD (test code=RDW-SD) fL 37.0-51.0 PLATELET COUNT (test code=PLT) K/mm3 150-450 MEAN PLATELET VOLUME (test code=MPV) fL 6.7-11.0 NEUTROPHIL % (test code=NT%) % 39.0-69.0 IMMATURE GRANULOCYTE % (test code=IG%) % 0.0-5.0 LYMPHOCYTE % (test code=LY%) % 25.0-55.0 MONOCYTE % (test code=MO%) % 0.0-10.0 EOSINOPHIL % (test code=EO%) % 0.0-5.0 BASOPHIL % (test code=BA%) % 0.0-1.0 NEUTROPHIL # (test code=NT#) K/mm3 1.8-7.7 LYMPHOCYTE # (test code=LY#) K/mm3 1.0-5.0 MONOCYTE # (test code=MO#) K/mm3 0-0.8 EOSINOPHIL # (test code=EO#) K/mm3 0.0-0.5 BASOPHIL # (test code=BA#) K/mm3 0.0-0.2 COMMENTS TO CLIENT REPORTING ASSOCIATE: PT IN PACU 9ARTERIAL BLOOD [id number] 16:56:00* Test Item Value Reference Range Comments ARTERIAL BLOOD GAS PH (test code=PHA) 7.33 7.35-7.45 ARTERIAL BLOOD GAS PCO2 (test code=PCO2A) 38.0 mm Hg 35-45 ARTERIAL BLOOD GAS PO2 (test code=PO2A) 109.8 mmHg 80-100 BICARBONATE TOTAL HCO3 (test code=HCO3) 19.7 mmol/L 23.0-27.0 BASE EXCESS (test code=VILMA) -5.6 mmol/L -3.0-5.0 Results called to and read back by DR Qureshi 16:56 - 09/15/2018; by MV ABG O2 SATURATION (test code=SATA) 96.8 % 90.0-98.0 ABG TYPE (test code=TYPEA) Arterial FIO2 (test code=FIO2A) 40.0 ABG SITE (test code=SITEA) Lt BRACHIAL ARTERY MODIFIED ALLENS (test code=MODALL) Yes CHECK PERFORMED SODIUM (test code=NA/ABG) 136.9 mEq/L 135-148 POTASSIUM (test code=K/ABG) 4.5 mEq/L 3.5-4.5 CHLORIDE (test code=CL/ABG) 105 mEq/L 98-106 GLUCOSE (test code=GLU/ABG) 152 mg/dL 74-99 HEMATOCRIT (test code=HCT/ABG) 36 % 35-47 IONIZED CALCIUM (test code=CAIABG) 1.07 mmol/L 1.1-1.37 TOTAL HGB (test code=THB) 12.3 gram/dL 11.5-15.5 HGB O2 SAT (test code=HBOSAT) 96.0 % 94.00-98.00 CARBOXYHEMOGLOBIN (test code=HOHGBT) 0.3 %totalHg 0.5-1.5 Results called to and read back by DR Qureshi 16:56 - 09/15/2018; by MV METHEMOGLOBIN (test code=METHGB) 0.5 % 0.0-1.50 O2 CONTENT (test code=O2CT) 16.8 % vol 18.0-22.0 - XR HIP W/PEL UNI 2+V [id number] 15:57:00 FAX: Dillon Baker MD [phone] [place]: St: ADM FAX: Landon Esparza MD [phone] Name: BARTOLOME ARGUELLES [facility] : 1930 Age/S: 88/F [address] [facility] Unit #: [id number] Loc: [id number] [place] [address] Phys: Landon Ding MD Acct: [id number] Dis Date: Status: ADM IN PHONE #: [phone] Exam Date: 09/15/2018 1510 FAX #: [phone] Reason: post op EXAMS: CPT CODE: [id number] XR HIP W/PEL UNI 2+[place] [id number] CLINICAL HISTORY: Left hip fracture; post op TECH NIQUE: Neutral and frog leg AP views of the left hip COMPARISON: FINDINGS: Status post left hip hemiarthroplast y. No periprosthetic fracture. No hip dislocation. Visualized bony pelvis is intact. Osteopenia. Left hip postsurgical changes and skin marni. Deg enerative changes of the lumbar spine. IMPRESSION: Status post left hip hemiarthroplasty. Electronic ally Signed by Maame Jones D.O. on 09/15/2018 at 1557 Repo rted and signed by: Maame Jones D.O. CC: Dillon Baker MD ; Landon Ding MD Technologist: Poly Vaughan Trnscrd Date/Time/By: 09/15/2018 (1557) : By: [email or web address] Orig Print D/T: S: 09/15/2018 (2755) PAGE 1 Signed Report [id number] 20:54:00* Test Item Value Reference Range Comments GLUALLAN (test code=GLUBED) 158 mg/dL 74-106 Performed by certified skoog machine operator at [facility] - XR CHEST 1 [id number] 08:07:00 FAX: Cosme Mccormick MD [place]: St: ADM Name: BARTOLOME SHARPE [facility] : [birth year] Age/S: 88/F [address] [facility] Unit #: [id number] Loc: [address] [place] [address] Phys: Cosme Sinclair MD Acct: [id number] Dis Date: Status: ADM IN PHONE #: [phone] Exam Date: 09/14/2018749 FAX #: [phone] Reason: HYPOXIA EXAMS: CPT CODE: [id number] XR CHEST 1 V 83173 CLINICAL HISTORY: HYPOXIA TECHNIQUE: AP chest x-ray COMPARISON: Previous day. IMPRESSION: Mildly increased bilateral interstitial op acities, suspect interstitial edema. No focal consolidation or pleural e ffusion. Cardiomegaly. Cardiac pacemaker. 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 Electronically Sig rosario by Maame Jones D.O. on 09/14/2018 at 0807 Reported and signed by: Maame Jones D.O. CC: Cosme Sinclair MD Technologist: Blanca Silva(R); Maggie Roger RT(R) Trnscrd Date/Time/By: 09/14/2018 (0807) : By: Norris Orig Print D/T: S: 09/14/2018 (0812) PAGE 1 Signed Report - CT ABD PELVIS W/CONT 2018-09-13 23:28:00 Name: BARTOLOME ARGUELLES [facility] : 1930 Age/S: 88 / F Karen [facility] Unit #: [id number] Loc: [place] [address] Phys: Marian Vela MD Acct: [id number] Dis Date: Status: REG ER PHONE #: [phone] Exam Date: 09/13/2018 2301 FAX #: [phone] Reason: fall, vomiting EXAMS: CPT CODE: [id number] CT ABD PELVIS W/CONT 55872 EXAM: - CT CHEST W/CONTRAST, - CT ABD PELVIS W/CONT LOCATION: C3 HISTORY: fall, vomiting TECHNIQUE: CT images of the chest, abdomen and pelvis were obtained with intravenous contrast. Coronal and sagittal reformatted images are provided. This exam was performed according to our departmental dose-optimization program, which includes automated exposure control, adjustment of the mA and/or kV according to patient size and/or use of iterative reconstruction technique. COMPARISON: 02/10/2018 FINDINGS: CT CHEST: Lungs/Pleura: 7 mm nodule identified in the right upper lobe, axial image 38, previously measured 4 mm. Subsegmental atelectasis is identified at the dependent aspect of the right lower lobe. No effusions. Mediastinum: There is no pericardial effusion. The aorta tapers normally. The trachea is unremarkable. The esophagus is grossly unremarkable. Lymphadenopathy: There is no mediastinal, hilar, or axillary adenopathy. CT ABDOMEN AND PELVIS: Hepatobiliary: The liver is normal without focal lesion. Gallbladder is absent. Physiologic dilatation of the biliary duct s. Pancreas: Normal. Spleen: Multiple calcified gran ulomas are identified in the spleen. Adrenals: 1.2 cm indetermina te left adrenal nodule. Genitourinary: Renal cystlike lesions are identified bilaterally largest measuring 1.7 cm and the right kidney. No h ydronephrosis. Bladder is decompressed by Dorantes catheter. PAG E 1 Signed Report (CONTINUED) Name: BARTOLOME ARGUELLES [facility] : 1930 Age/S: 88 / F Karen Emery Unit #: [id number] Loc: [place] [address] Phys: Marian Vela MD Acct: [id number] Dis Date: Status: REG ER PHONE #: [phone] Exam Date: 09/13/20182300 FAX #: [phone] Reason: fall, vomiting EXAMS: CPT CODE: [id number] CT ABD PELVIS W/CONT 35106 <Continued> Gastrointestinal: Colonic diverticulosis without inflammation. The appendix is not visualized. Vascular: Atherosclerotic calcifications are seen within the aorta and branch vessels. Lymphatics: No enlarged lymph nodes by CT size criteria. Peritoneum/Other: No extraluminal air. No extraluminal fluid. Bones/Soft Tissues: Starr bcapital left femoral fracture with mild displacement. Unchanged compressi on deformity of L1 with 50% loss of height. No ventral hernias. IMPRESSION: Subcapital left femoral fracture wi th mild displacement. Increase in size of 7 mm right upper lob e lung nodule. 1.2 cm indeterminate left adrenal nodule. Colonic diverticulosis without inflammation. Electronically Signed by Roberto Pemberton M.D. on 09/13 at 2328 Reported and signed by: Roberto Pemberton M.D. CC: Marian Vela MD Technologist:RT SHAWN CTDI: DLP: Trnscb Date/Time: 09/13/2018 (2327) [email or web address] Orig Print D/T: S: 09/13/2018 (2331) CTDI: DLP: PAGE 2 Signed Report - CT CHEST W/[id number] 23:28:00 Name: BARTOLOME ARGUELLES [facility] : 1930 Age/S: 88 / F [address] [facility] Unit #: [id number] Loc: [place] [address] Phys: Marian Vela MD Acct: [id number] Dis Date: Status: REG ER PHONE #: [phone] Exam Date: 09/13/20182300 FAX #: [phone] Reason: fall, vomiting EXAMS: CPT CODE: [id number] CT CHEST W/CONTRAST 14422 EXAM: - CT CHEST W/CONTRAST, - CT ABD PELVIS W/CONT LOCATION: C3 HISTORY: fall, vomiting TECHNIQUE: CT images of the chest, abdomen and pelvis were obtained with intravenous contrast. Coronal and sagittal reformatted images are provided. This exam was performed according to our departmental dose-optimization program, which includes automated exposure control, adjustment of the mA and/or kV according to patient size and/or use of iterative reconstruction technique. COMPARISON: 02/10/2018 FINDINGS: CT CHEST: Lungs/Pleura: 7 mm nodule identified in the right upper lobe, axial image 38, previously measured 4 mm. Subsegmental atelectasis is identified at the dependent aspect of the right lower lobe. No effusions. Mediastinum: There is no pericardial effusion. The aorta tapers normally. The trachea is unremarkable. The esophagus is grossly unremarkable. Lymphadenopathy: There is no mediastinal, hilar, or axillary adenopathy. CT ABDOMEN AND PELVIS: Hepatobiliary: The liver is normal without focal lesion. Gallbladder is absent. Physiologic dilatation of the biliary duct s. Pancreas: Normal. Spleen: Multiple calcified gran ulomas are identified in the spleen. Adrenals: 1.2 cm indetermina te left adrenal nodule. Genitourinary: Renal cystlike lesions are identified bilaterally largest measuring 1.7 cm and the right kidney. No h ydronephrosis. Bladder is decompressed by Dorantes catheter. PAG E 1 Signed Report (CONTINUED) Name: BARTOLOME ARGUELLES [facility] : 1930 Age/S: 88 / F [address] [facility] Unit #: [id number] Loc: [place] [address] Phys: Marian Vela MD Acct: [id number] Dis Date: Status: REG ER PHONE #: Exam Date: 09/13/2018 2301 FAX #: [phone] Reason: fall, vomiting EXAMS: CPT CODE: [id number] CT CHEST W/CONTRAST 69025 <Continued> Gastrointestinal: Colonic diverticulosis without inflammation. The appendix is not visualized. Vascular: Atherosclerotic calcifications are seen within the aorta and branch vessels. Lymphatics: No enlarged lymph nodes by CT size criteria. Peritoneum/Other: No extraluminal air. No extraluminal fluid. Bones/Soft Tissues: Starr bcapital left femoral fracture with mild displacement. Unchanged compressi on deformity of L1 with 50% loss of height. No ventral hernias. IMPRESSION: Subcapital left femoral fracture wi th mild displacement. Increase in size of 7 mm right upper lob e lung nodule. 1.2 cm indeterminate left adrenal nodule. Colonic diverticulosis without inflammation. Electronically Signed by Roberto Pemberton M.D. on 09/13 at 2328 Reported and signed by: Roberto Pemberton M.D. CC: Marian Vela MD Technologist:BHARATH HART, RT CTDI: DLP: Trnscb Date/Time: 09/13/2018 (2327) [email or web address] Orig Print D/T: S: 09/13/2018 (7445) CTDI: DLP: PAGE 2 Signed Report URINALYSIS [id number] 22:40:00* Test Item Value Reference Range Comments UA COLOR (test code=COLU) YELLOW YELLOW UA APPEARANCE (test code=APPU) Cloudy CLEAR UA GLUCOSE DIPSTICK (test code=DGLUU) NEGATIVE mg/dL NEGATIVE UA BILIRUBIN DIPSTICK (test code=BILU) NEGATIVE mg/dL NEGATIVE UA KETONE DIPSTICK (test code=KETU) NEGATIVE mg/dL NEGATIVE UA SPECIFIC GRAVITY (test code=SGU) 1.014 1.001-1.035 UA BLOOD DIPSTICK (test code=RERE) Negative mg/dL NEGATIVE UA PH DIPSTICK (test code=DEMETRIO) 5.5 5.0-8.0 UA PROTEIN DIPSTICK (test code=PROU) 50 (1+) mg/dL NEGATIVE UA UROBILINIOGEN DIPSTICK (test code=URO) 2.0 (1+) mg/dL NEGATIVE UA NITRITE DIPSTICK (test code=LAYLA) NEGATIVE NEGATIVE UA LEUKOCYTE ESTERASE W REFLEX (test code=LEUUR) 25 Roscoe/uL (Trace) Roscoe/uL NEGATIVE UA WBC (test code=WBCU) 0-5 per HPF 0-5 UA RBC (test code=RBCU) 0-2 #/HPF 0-5 UA EPITHELIAL CELLS (test code=EPIU) FEW per HPF FEW UA BACTERIA (test code=BACU) MODERATE #/HPF NONE UA MUCUS (test code=MUCU) FEW #/LPF FEW Urine Source? Clean CatchURINALYSIS [id number] 22:29:00* Test Item Value Reference Range Comments UA COLOR (test code=COLU) YELLOW YELLOW UA APPEARANCE (test code=APPU) Cloudy CLEAR UA GLUCOSE DIPSTICK (test code=DGLUU) NEGATIVE mg/dL NEGATIVE UA BILIRUBIN DIPSTICK (test code=BILU) NEGATIVE mg/dL NEGATIVE UA KETONE DIPSTICK (test code=KETU) NEGATIVE mg/dL NEGATIVE UA SPECIFIC GRAVITY (test code=SGU) 1.014 1.001-1.035 UA BLOOD DIPSTICK (test code=RERE) Negative mg/dL NEGATIVE UA PH DIPSTICK (test code=DEMETRIO) 5.5 5.0-8.0 UA PROTEIN DIPSTICK (test code=PROU) 50 (1+) mg/dL NEGATIVE UA UROBILINIOGEN DIPSTICK (test code=URO) 2.0 (1+) mg/dL NEGATIVE UA NITRITE DIPSTICK (test code=LAYLA) NEGATIVE NEGATIVE UA LEUKOCYTE ESTERASE W REFLEX (test code=LEUUR) 25 Roscoe/uL (Trace) Roscoe/uL NEGATIVE UA WBC (test code=WBCU) per HPF 0-5 UA RBC (test code=RBCU) per HPF 0-5 UA EPITHELIAL CELLS (test code=EPIU) per HPF Few UA BACTERIA (test code=BACU) per HPF NONE Urine Source? Clean CatchCOMPREHENSIVE METABOLIC [id number] 22:26:00* Test Item Value Reference Range Comments SODIUM (test code=NA) 140 mmol/L 136-145 POTASSIUM (test code=K) 4.3 mmol/L 3.5-5.1 CHLORIDE (test code=CL) 108.0 mmol/L 98-107 CARBON DIOXIDE (test code=CO2) 24.0 mmol/L 21-32 ANION GAP (test code=GAP) 12.3 10-20 GLUCOSE (test code=GLU) 149 mg/dL 74-106 BLOOD UREA NITROGEN (test code=BUN) 32 mg/dL 7-18 GLOMERULAR FILTRATION RATE (test code=GFR) 30 mL/min >=60 Estimated GFR by using Modified MDRD formula.Chronic kidney disease is defined as either kidney damageor GFR <60 mL/min/1.73 m2 for >3 months. CREATININE (test code=CREAT) 1.60 mg/dL 0.55-1.02 Note change in reference range due to change in reagent. BUN/CREATININE RATIO (test code=BUN/CREA) 20.0 10-20 TOTAL PROTEIN (test code=PROT) 6.7 gram/dL 6.4-8.2 ALBUMIN (test code=ALB) 3.6 g/dL 3.4-5.0 GLOBULIN (test code=GLOB) 3.1 gram/dL 2.7-4.2 ALBUMIN/GLOBULIN RATIO (test code=A/G) 1.2 0.75-1.50 CALCIUM (test code=CA) 8.9 mg/dL 8.5-10.1 BILIRUBIN TOTAL (test code=BILT) 1.70 mg/dL 0.0-1.0 SGOT/AST (test code=AST) 40 IUnit/L 15-37 SGPT/ALT (test code=ALT) 40 IUnit/L 12-78 ALKALINE PHOSPHATASE TOTAL (test code=ALKP) 113 IUnit/L 45-117 Note change in reference range due to change in reagent. [id number] 22:26:00* Test Item Value Reference Range Comments LIPASE (test code=LIP) 244 U/L 73.0-393.0 COMPREHENSIVE METABOLIC [id number] 22:19:00* Test Item Value Reference Range Comments SODIUM (test code=NA) 140 mmol/L 136-145 POTASSIUM (test code=K) 4.3 mmol/L 3.5-5.1 CHLORIDE (test code=CL) 108.0 mmol/L 98-107 CARBON DIOXIDE (test code=CO2) mmol/L 21-32 ANION GAP (test code=GAP) 10-20 GLUCOSE (test code=GLU) mg/dL 74-106 BLOOD UREA NITROGEN (test code=BUN) mg/dL 7-18 GLOMERULAR FILTRATION RATE (test code=GFR) mL/min >=60 CREATININE (test code=CREAT) mg/dL 0.55-1.02 BUN/CREATININE RATIO (test code=BUN/CREA) 10-20 TOTAL PROTEIN (test code=PROT) gram/dL 6.4-8.2 ALBUMIN (test code=ALB) g/dL 3.4-5.0 GLOBULIN (test code=GLOB) gram/dL 2.7-4.2 ALBUMIN/GLOBULIN RATIO (test code=A/G) 0.75-1.50 CALCIUM (test code=CA) mg/dL 8.5-10.1 BILIRUBIN TOTAL (test code=BILT) mg/dL 0.0-1.0 SGOT/AST (test code=AST) IUnit/L 15-37 SGPT/ALT (test code=ALT) IUnit/L 12-78 ALKALINE PHOSPHATASE TOTAL (test code=ALKP) IUnit/L 45-117 [id number] 22:19:00* Test Item Value Reference Range Comments LIPASE (test code=LIP) U/L 73.0-393.0 CBC W/AUTO [id number] 22:06:00* Test Item Value Reference Range Comments WHITE BLOOD CELL (test code=WBC) 13.5 K/mm3 4.5-12.5 RED BLOOD CELL (test code=RBC) 4.52 mill/mm3 3.7-5.2 HEMOGLOBIN (test code=HGB) 12.7 gram/dL 11.5-15.5 HEMATOCRIT (test code=HCT) 40.7 % 36.0-46.0 MEAN CELL VOLUME (test code=MCV) 90.0 fL 80-98 MEAN CELL HGB (test code=MCH) 28.1 picogram 27.0-33.0 MEAN CELL HGB CONCETRATION (test code=MCHC) 31.2 gram/dL 33.0-36.0 RED CELL DISTRIBUTION WIDTH (test code=RDW) 17.9 % 11.6-16.2 RED CELL DISTRIBUTION WIDTH SD (test code=RDW-SD) 58.6 fL 37.0-51.0 PLATELET COUNT (test code=PLT) 162 K/mm3 150-450 MEAN PLATELET VOLUME (test code=MPV) 10.0 fL 6.7-11.0 NEUTROPHIL % (test code=NT%) 89.6 % 39.0-69.0 IMMATURE GRANULOCYTE % (test code=IG%) 1.7 % 0.0-5.0 LYMPHOCYTE % (test code=LY%) 3.2 % 25.0-55.0 MONOCYTE % (test code=MO%) 4.9 % 0.0-10.0 EOSINOPHIL % (test code=EO%) 0.4 % 0.0-5.0 BASOPHIL % (test code=BA%) 0.2 % 0.0-1.0 NUCLEATED RBC % (test code=NRBC%) 0.0 % 0-0 NEUTROPHIL # (test code=NT#) 12.04 K/mm3 1.8-7.7 IMMATURE GRANULOCYTE # (test code=IG#) 0.23 x10 3/uL 0-0.03 LYMPHOCYTE # (test code=LY#) 0.43 K/mm3 1.0-5.0 MONOCYTE # (test code=MO#) 0.66 K/mm3 0-0.8 EOSINOPHIL # (test code=EO#) 0.06 K/mm3 0.0-0.5 BASOPHIL # (test code=BA#) 0.03 K/mm3 0.0-0.2 NUCLEATED RBC # (test code=NRBC#) 0.00 K/mm3 0.0-0.1 MANUAL DIFF REQUIRED (test code=MDIFF) NO CBC W/AUTO [id number] 22:05:00* Test Item Value Reference Range Comments WHITE BLOOD CELL (test code=WBC) K/mm3 4.5-12.5 RED BLOOD CELL (test code=RBC) mill/mm3 3.7-5.2 HEMOGLOBIN (test code=HGB) 12.7 gram/dL 11.5-15.5 HEMATOCRIT (test code=HCT) 40.7 % 36.0-46.0 MEAN CELL VOLUME (test code=MCV) fL 80-98 MEAN CELL HGB (test code=MCH) picogram 27.0-33.0 MEAN CELL HGB CONCETRATION (test code=MCHC) gram/dL 33.0-36.0 RED CELL DISTRIBUTION WIDTH (test code=RDW) % 11.6-16.2 RED CELL DISTRIBUTION WIDTH SD (test code=RDW-SD) fL 37.0-51.0 PLATELET COUNT (test code=PLT) K/mm3 150-450 MEAN PLATELET VOLUME (test code=MPV) fL 6.7-11.0 NEUTROPHIL % (test code=NT%) % 39.0-69.0 IMMATURE GRANULOCYTE % (test code=IG%) % 0.0-5.0 LYMPHOCYTE % (test code=LY%) % 25.0-55.0 MONOCYTE % (test code=MO%) % 0.0-10.0 EOSINOPHIL % (test code=EO%) % 0.0-5.0 BASOPHIL % (test code=BA%) % 0.0-1.0 NEUTROPHIL # (test code=NT#) K/mm3 1.8-7.7 LYMPHOCYTE # (test code=LY#) K/mm3 1.0-5.0 MONOCYTE # (test code=MO#) K/mm3 0-0.8 EOSINOPHIL # (test code=EO#) K/mm3 0.0-0.5 BASOPHIL # (test code=BA#) K/mm3 0.0-0.2 - XR HIP W/PEL UNI 2+V [id number] 21:24:00 FAX: aMrian Norris [phone] [place]: St: REG Name: Marty BARTOLOME DE LA FUENTE [facility] : [birth year] Age/S: 88/F [address] [facility] Unit #: [id number] Loc: [place] [address] Phys: Marian Vela MD Acct: [id number] Dis Date: Status: REG ER PHONE #: [phone] Exam Date: 09/13/20182107 FAX #: [phone] Reason: fall, deformity to left hip EXAMS: CPT CODE: [id number] XR HIP W/PEL UNI 2+[place] [address] REASON FOR EXAM: fall, deformity to left hip EXAM ORDER DATE: 09/13/2018 8:46 PM Ordering M.DLew: Marian Vela MD PROCEDURE: - XR FEMUR MIN 2 VWS LT, - XR HIP W/PEL UNI 2+V LT FINDINGS: 7 v iews of the left femur and left hip were obtained. Deformity of the left f emoral neck in the subcapital region consistent with an acute transverse f racture of the left femoral neck. The joint spaces are maintained. There i s minimal foreshortening of the distal fragment approximately 2 cm. There is normal alignment of the left hip joint . The pelvic ring is intact. IMPRESSION: Subcapital fracture of the left femoral neck at 2123 Reported and signed by: Mike Stearns M.D. CC: Bakari Vela MD Technologist: YEE BEATTY Trnscrd Date/Time/By: 09/13/2018 (2123) : By: Sabino.VTL Orig Print D/T: S: 09/13/2018 (2126) PAGE 1 Signed Report - XR FEMUR MIN 2 VWS [id number] 21:24:00 FAX: Marian Norris [phone] [place]: St: REG Name: BARTOLOME SHARPE [facility] : [birth year] Age/S: 88/F [address] [facility] Unit #: [id number] Loc: [place] [address] Phys: Marian Vela MD Acct: [id number] Dis Date: Status: REG ER PHONE #: [phone] Exam Date: 09/13/20182107 FAX #: [phone] Reason: fall, deformity to left hip EXAMS: CPT CODE: [id number] XR FEMUR [place] [address] [place] [address] REASON FOR EXAM: fall, deformity to left hip EXAM ORDER DATE: 09/13/2018 8:46 PM Ordering M.Melissa: Marian Vela MD PROCEDURE: - XR FEMUR MIN 2 VWS LT, - XR HIP W/PEL UNI 2+V LT FINDINGS: 7 v iews of the left femur and left hip were obtained. Deformity of the left f emoral neck in the subcapital region consistent with an acute transverse f racture of the left femoral neck. The joint spaces are maintained. There i s minimal foreshortening of the distal fragment approximately 2 cm. There is normal alignment of the left hip joint . The pelvic ring is intact. IMPRESSION: Subcapital fracture of the left femoral neck at 2123 Reported and signed by: Mike Stearns M.D. CC: Bakari Vela MD Technologist: YEE BEATTY Trnscrd Date/Time/By: 09/13/2018 (2123) : By: DonaldL Orig Print D/T: S: 09/13/2018 (2126) PAGE 1 Signed Report - XR HAND 3 + V [id number] 21:22:00 FAX: Marian Norris [phone] [place]: St: REG Name: BARTOLOME SHARPE [facility] : [birth year] Age/S: 88/F [address] [facility] Unit #: [id number] Loc: [place] [address] Phys: Marian Vela MD Acct: [id number] Dis Date: Status: REG ER PHONE #: [phone] Exam Date: 09/13/20182107 FAX #: [phone] Reason: fall, skin avulsion to dorsum of hand EXAMS: CPT CODE: [id number] XR HAND 3 + V RT [address] REASON FOR EXAM: fall, skin avulsion to dorsum of hand EXAM ORDER DATE: 09/13 8:45 PM Ordering Dennise: Marian Vela MD P ROCEDURE: - XR HAND 3 + V RT FINDINGS: 3 views of the right hand were obtained. The osseous structures are unremarkable in size and shape. The joint spaces are maintained. No evidence of fracture. The phalanges a re intact. The carpal and metacarpal bones are unremarkable. There is no rmal alignment of the radiocarpal joint space IMPRESSION: Unremarkable right hand Electronically Signed by Dennise Stearns on 06/2018 at 2 Reported and signed by: Mike Stearns M.D. CC: Marian Vela MD echnologist: YEE BEATTY Trnscrd Date /Time/By: 09/13/2018 (2121) : By: Sabino.VTL Orig Print D/T: S: 019 (2124) PAGE 1 Signed Report - XR CHEST 1 [id number] 21:22:00 FAX: Marian Norris [phone] [place]: St: REG Name: BARTOLOME SHARPE [facility] : [birth year] Age/S: 88/F [address] [facility] Unit #: [id number] Loc: [place] [address] Phys: Marian Vela MD Acct: [id number] Dis Date: Status: REG ER PHONE #: [phone] Exam Date: 09/13/20182107 FAX #: [phone] Reason: fall EXAMS: CPT CODE: [id number] XR CHEST 1 V 55577 REASON FOR EXAM: fall EXAM ORDER DATE: 09/13/2018 8:15 PM Ordering Dennise: Marian Vela MD PROCEDURE: - XR CHEST 1 V COMPARISON: 08/03/2018 FINDINGS: Portable AP frontal view of the chest obta ined at 9:01 PM shows clear lungs without evidence of consolidation. There is no evidence of effusion. The heart size is minimally enlarged. 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 Pulmonary vasculatures are unremarkable. IMPRESSION: No active disease. E lectronically Signed by Dennise Stearns on 09/13/2018 at 2122 Reported and signed by: Mike Stearns M.D. CC: Marian Vela MD Technologist: YEE BEATTY Trnquetard Date/Time/By: 09/13/2018 (2121) : By: Ebenezer SUEVTPaige Orig Print D/T: S: 09/13/2018 (2125) CARROLL GE 1 Signed Report - CT C- SPINE W/O [id number] 21:18:00 Name: BARTOLOME ARGUELLES [facility] : 1930 Age/S: 88 / F [address] [facility] Unit #: [id number] Loc: [place] [address] Phys: Marian Vela MD Acct: [id number] Dis Date: Status: REG ER PHONE #: [phone] Exam Date: 09/13/20182110 FAX #: [phone] Reason: fall, contusion to back of head EXAMS: CPT CODE: [id number] CT C-SPINE W/O CONTRAST 18529 REASON FOR EXAM: fall, contusion to back of head EXAM ORDER DATE: 09/13/2018 8:45 PM Ordering Dennise: Marian Vela MD PROCEDURE: - CT C-SPINE W/O CONTRAST FINDINGS: CT images of the cervical spine were obtained without IV contrast at 2.5mm. Reconstructed coronal and sagittal images were also provided. Dose modulation, iterative reconstruction, and/or weight based adjustment of the MA/KV was utilized to reduce the radiation dose to as low as reasonably achievable. The osseous structures are intact. Osteophytes are seen at C5-6. 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 The central canal is patent. 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 No acute findings at 2117 Reported and signed by: Mike Stearns M.D. CC: Marian Vela MD Technologist:Kortney Carrillo RT(R); PEDRO PABLO Painting CTDI: DLP: Trnscb Date/Time: 09/13/2018 (2117) Isamar Orig Print D/T: S: 09/13/2018 (2120) CTDI: DLP: PAGE 1 Signed Report - CT HEAD/BRAIN W/O CONT 2018-09-13 21:16:00 Name: BARTOLOME ARGUELLES [facility] : 1930 Age/S: 88 / F [facility] Unit #: [id number] Loc: [place] [address] Phys: Marian Vela MD Acct: [id number] Dis Date: Status: REG ER PHONE #: [phone] Exam Date: 09/13/20182110 FAX #: [phone] Reason: fall, contusion to back of head EXAMS: CPT CODE: [id number] CT HEAD/BRAIN W/O CONT 48439 REASON FOR EXAM: fall, contusion to back of head EXAM ORDER DATE: 09/13/2018 8:45 PM Ordering M.Meg.: Marian Vela MD PROCEDURE: - CT HEAD/BRAIN W/O CONT COMPARISON: FINDINGS: CT images of the brain were obtained without IV contrast. Dose modulation, iterative reconstruction, and/or weight based adjustment of the MA/KV was utilized to reduce the radiation dose to as low as reasonably achievable. Mild patchy low densities appearance of the paraventricular region noted consistent with nonspecific white matter disease. The murguia-white matter delineation is unremarkable. The ventricles, cisterns, and sulci are unremarkable. There is no evidence of hemorrhage, mass, mass effect. There is no evidence of acute infarct. The calvarium is intact. 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 No acute findings at 211 Reported and signed by: Mike Stearns M.D. CC: Marian Vela MD Technologist:Kortney Carrillo RT(R); PEDRO PABLO Painting CTDI: DLP: Trnscb Date/Time: 09/13/2018 (2115) Isamar Orig Print D/T: S: 09/13/2018 (2119) CTDI: DLP: PAGE 1 Signed Report COMPREHENSIVE METABOLIC PANEL 2018-08-06 05:49:00* Test Item Value Reference Range Comments SODIUM (test code=NA) 145 mmol/L 136-145 POTASSIUM (test code=K) 3.4 mmol/L 3.5-5.1 CHLORIDE (test code=CL) 108.0 mmol/L 98-107 CARBON DIOXIDE (test code=CO2) 30.0 mmol/L 21-32 ANION GAP (test code=GAP) 10.4 10-20 GLUCOSE (test code=GLU) 83 mg/dL 74-106 BLOOD UREA NITROGEN (test code=BUN) 38 mg/dL 7-18 GLOMERULAR FILTRATION RATE (test code=GFR) 39 mL/min >=60 Estimated GFR by using Modified MDRD formula.Chronic kidney disease is defined as either kidney damageor GFR <60 mL/min/1.73 m2 for >3 months. CREATININE (test code=CREAT) 1.30 mg/dL 0.55-1.02 Note change in reference range due to change in reagent. BUN/CREATININE RATIO (test code=BUN/CREA) 29.2 10-20 TOTAL PROTEIN (test code=PROT) 6.7 gram/dL 6.4-8.2 ALBUMIN (test code=ALB) 3.4 g/dL 3.4-5.0 GLOBULIN (test code=GLOB) 3.3 gram/dL 2.7-4.2 ALBUMIN/GLOBULIN RATIO (test code=A/G) 1.0 0.75-1.50 CALCIUM (test code=CA) 8.3 mg/dL 8.5-10.1 BILIRUBIN TOTAL (test code=BILT) 1.10 mg/dL 0.0-1.0 SGOT/AST (test code=AST) 18 IUnit/L 15-37 SGPT/ALT (test code=ALT) 21 IUnit/L 12-78 ALKALINE PHOSPHATASE TOTAL (test code=ALKP) 106 IUnit/L 45-117 Note change in reference range due to change in reagent. COMPREHENSIVE METABOLIC [id number] 05:28:00* Test Item Value Reference Range Comments SODIUM (test code=NA) 145 mmol/L 136-145 POTASSIUM (test code=K) 3.4 mmol/L 3.5-5.1 CHLORIDE (test code=CL) 108.0 mmol/L 98-107 CARBON DIOXIDE (test code=CO2) mmol/L 21-32 ANION GAP (test code=GAP) 10-20 GLUCOSE (test code=GLU) mg/dL 74-106 BLOOD UREA NITROGEN (test code=BUN) mg/dL 7-18 GLOMERULAR FILTRATION RATE (test code=GFR) mL/min >=60 CREATININE (test code=CREAT) mg/dL 0.55-1.02 BUN/CREATININE RATIO (test code=BUN/CREA) 10-20 TOTAL PROTEIN (test code=PROT) gram/dL 6.4-8.2 ALBUMIN (test code=ALB) g/dL 3.4-5.0 GLOBULIN (test code=GLOB) gram/dL 2.7-4.2 ALBUMIN/GLOBULIN RATIO (test code=A/G) 0.75-1.50 CALCIUM (test code=CA) mg/dL 8.5-10.1 BILIRUBIN TOTAL (test code=BILT) mg/dL 0.0-1.0 SGOT/AST (test code=AST) IUnit/L 15-37 SGPT/ALT (test code=ALT) IUnit/L 12-78 ALKALINE PHOSPHATASE TOTAL (test code=ALKP) IUnit/L 45-117 CBC W/AUTO [id number] 05:17:00* Test Item Value Reference Range Comments WHITE BLOOD CELL (test code=WBC) 5.7 K/mm3 4.5-12.5 RED BLOOD CELL (test code=RBC) 4.18 mill/mm3 3.7-5.2 HEMOGLOBIN (test code=HGB) 11.6 gram/dL 11.5-15.5 HEMATOCRIT (test code=HCT) 37.3 % 36.0-46.0 MEAN CELL VOLUME (test code=MCV) 89.2 fL 80-98 MEAN CELL HGB (test code=MCH) 27.8 picogram 27.0-33.0 MEAN CELL HGB CONCETRATION (test code=MCHC) 31.1 gram/dL 33.0-36.0 RED CELL DISTRIBUTION WIDTH (test code=RDW) 15.5 % 11.6-16.2 RED CELL DISTRIBUTION WIDTH SD (test code=RDW-SD) 50.5 fL 37.0-51.0 PLATELET COUNT (test code=PLT) 161 K/mm3 150-450 MEAN PLATELET VOLUME (test code=MPV) 10.5 fL 6.7-11.0 NEUTROPHIL % (test code=NT%) 83.0 % 39.0-69.0 IMMATURE GRANULOCYTE % (test code=IG%) 0.5 % 0.0-5.0 LYMPHOCYTE % (test code=LY%) 5.3 % 25.0-55.0 MONOCYTE % (test code=MO%) 9.9 % 0.0-10.0 EOSINOPHIL % (test code=EO%) 1.1 % 0.0-5.0 BASOPHIL % (test code=BA%) 0.2 % 0.0-1.0 NUCLEATED RBC % (test code=NRBC%) 0.0 % 0-0 NEUTROPHIL # (test code=NT#) 4.72 K/mm3 1.8-7.7 IMMATURE GRANULOCYTE # (test code=IG#) 0.03 x10 3/uL 0-0.03 LYMPHOCYTE # (test code=LY#) 0.30 K/mm3 1.0-5.0 MONOCYTE # (test code=MO#) 0.56 K/mm3 0-0.8 EOSINOPHIL # (test code=EO#) 0.06 K/mm3 0.0-0.5 BASOPHIL # (test code=BA#) 0.01 K/mm3 0.0-0.2 NUCLEATED RBC # (test code=NRBC#) 0.00 K/mm3 0.0-0.1 CBC W/AUTO [id number] 05:16:00* Test Item Value Reference Range Comments WHITE BLOOD CELL (test code=WBC) K/mm3 4.5-12.5 RED BLOOD CELL (test code=RBC) mill/mm3 3.7-5.2 HEMOGLOBIN (test code=HGB) 11.6 gram/dL 11.5-15.5 HEMATOCRIT (test code=HCT) 37.3 % 36.0-46.0 MEAN CELL VOLUME (test code=MCV) fL 80-98 MEAN CELL HGB (test code=MCH) picogram 27.0-33.0 MEAN CELL HGB CONCETRATION (test code=MCHC) gram/dL 33.0-36.0 RED CELL DISTRIBUTION WIDTH (test code=RDW) % 11.6-16.2 RED CELL DISTRIBUTION WIDTH SD (test code=RDW-SD) fL 37.0-51.0 PLATELET COUNT (test code=PLT) K/mm3 150-450 MEAN PLATELET VOLUME (test code=MPV) fL 6.7-11.0 NEUTROPHIL % (test code=NT%) % 39.0-69.0 IMMATURE GRANULOCYTE % (test code=IG%) % 0.0-5.0 LYMPHOCYTE % (test code=LY%) % 25.0-55.0 MONOCYTE % (test code=MO%) % 0.0-10.0 EOSINOPHIL % (test code=EO%) % 0.0-5.0 BASOPHIL % (test code=BA%) % 0.0-1.0 NEUTROPHIL # (test code=NT#) K/mm3 1.8-7.7 LYMPHOCYTE # (test code=LY#) K/mm3 1.0-5.0 MONOCYTE # (test code=MO#) K/mm3 0-0.8 EOSINOPHIL # (test code=EO#) K/mm3 0.0-0.5 BASOPHIL # (test code=BA#) K/mm3 0.0-0.2 CBC W/AUTO [id number] 09:57:00* Test Item Value Reference Range Comments WHITE BLOOD CELL (test code=WBC) 7.6 K/mm3 4.5-12.5 RED BLOOD CELL (test code=RBC) 4.15 mill/mm3 3.7-5.2 HEMOGLOBIN (test code=HGB) 11.6 gram/dL 11.5-15.5 HEMATOCRIT (test code=HCT) 36.7 % 36.0-46.0 MEAN CELL VOLUME (test code=MCV) 88.4 fL 80-98 MEAN CELL HGB (test code=MCH) 28.0 picogram 27.0-33.0 MEAN CELL HGB CONCETRATION (test code=MCHC) 31.6 gram/dL 33.0-36.0 RED CELL DISTRIBUTION WIDTH (test code=RDW) 15.4 % 11.6-16.2 RED CELL DISTRIBUTION WIDTH SD (test code=RDW-SD) 50.2 fL 37.0-51.0 PLATELET COUNT (test code=PLT) 158 K/mm3 150-450 MEAN PLATELET VOLUME (test code=MPV) 11.0 fL 6.7-11.0 NEUTROPHIL % (test code=NT%) 89.6 % 39.0-69.0 IMMATURE GRANULOCYTE % (test code=IG%) 0.4 % 0.0-5.0 LYMPHOCYTE % (test code=LY%) 3.3 % 25.0-55.0 MONOCYTE % (test code=MO%) 6.7 % 0.0-10.0 EOSINOPHIL % (test code=EO%) 0.0 % 0.0-5.0 BASOPHIL % (test code=BA%) 0.0 % 0.0-1.0 NUCLEATED RBC % (test code=NRBC%) 0.0 % 0-0 NEUTROPHIL # (test code=NT#) 6.80 K/mm3 1.8-7.7 IMMATURE GRANULOCYTE # (test code=IG#) 0.03 x10 3/uL 0-0.03 LYMPHOCYTE # (test code=LY#) 0.25 K/mm3 1.0-5.0 MONOCYTE # (test code=MO#) 0.51 K/mm3 0-0.8 EOSINOPHIL # (test code=EO#) 0.00 K/mm3 0.0-0.5 BASOPHIL # (test code=BA#) 0.00 K/mm3 0.0-0.2 NUCLEATED RBC # (test code=NRBC#) 0.00 K/mm3 0.0-0.1 CBC W/AUTO [id number] 09:47:00* Test Item Value Reference Range Comments WHITE BLOOD CELL (test code=WBC) K/mm3 4.5-12.5 RED BLOOD CELL (test code=RBC) mill/mm3 3.7-5.2 HEMOGLOBIN (test code=HGB) 11.6 gram/dL 11.5-15.5 HEMATOCRIT (test code=HCT) 36.7 % 36.0-46.0 MEAN CELL VOLUME (test code=MCV) fL 80-98 MEAN CELL HGB (test code=MCH) picogram 27.0-33.0 MEAN CELL HGB CONCETRATION (test code=MCHC) gram/dL 33.0-36.0 RED CELL DISTRIBUTION WIDTH (test code=RDW) % 11.6-16.2 RED CELL DISTRIBUTION WIDTH SD (test code=RDW-SD) fL 37.0-51.0 PLATELET COUNT (test code=PLT) K/mm3 150-450 MEAN PLATELET VOLUME (test code=MPV) fL 6.7-11.0 NEUTROPHIL % (test code=NT%) % 39.0-69.0 IMMATURE GRANULOCYTE % (test code=IG%) % 0.0-5.0 LYMPHOCYTE % (test code=LY%) % 25.0-55.0 MONOCYTE % (test code=MO%) % 0.0-10.0 EOSINOPHIL % (test code=EO%) % 0.0-5.0 BASOPHIL % (test code=BA%) % 0.0-1.0 NEUTROPHIL # (test code=NT#) K/mm3 1.8-7.7 LYMPHOCYTE # (test code=LY#) K/mm3 1.0-5.0 MONOCYTE # (test code=MO#) K/mm3 0-0.8 EOSINOPHIL # (test code=EO#) K/mm3 0.0-0.5 BASOPHIL # (test code=BA#) K/mm3 0.0-0.2 COMPREHENSIVE METABOLIC [id number] 08:48:00* Test Item Value Reference Range Comments SODIUM (test code=NA) 143 mmol/L 136-145 POTASSIUM (test code=K) 3.5 mmol/L 3.5-5.1 CHLORIDE (test code=CL) 107.0 mmol/L 98-107 CARBON DIOXIDE (test code=CO2) 26.0 mmol/L 21-32 ANION GAP (test code=GAP) 13.5 10-20 GLUCOSE (test code=GLU) 117 mg/dL 74-106 BLOOD UREA NITROGEN (test code=BUN) 46 mg/dL 7-18 GLOMERULAR FILTRATION RATE (test code=GFR) 36 mL/min >=60 Estimated GFR by using Modified MDRD formula.Chronic kidney disease is defined as either kidney damageor GFR <60 mL/min/1.73 m2 for >3 months. CREATININE (test code=CREAT) 1.40 mg/dL 0.55-1.02 Note change in reference range due to change in reagent. BUN/CREATININE RATIO (test code=BUN/CREA) 32.9 10-20 TOTAL PROTEIN (test code=PROT) 6.8 gram/dL 6.4-8.2 ALBUMIN (test code=ALB) 3.3 g/dL 3.4-5.0 GLOBULIN (test code=GLOB) 3.5 gram/dL 2.7-4.2 ALBUMIN/GLOBULIN RATIO (test code=A/G) 0.9 0.75-1.50 CALCIUM (test code=CA) 8.5 mg/dL 8.5-10.1 BILIRUBIN TOTAL (test code=BILT) 0.80 mg/dL 0.0-1.0 SGOT/AST (test code=AST) 18 IUnit/L 15-37 SGPT/ALT (test code=ALT) 23 IUnit/L 12-78 ALKALINE PHOSPHATASE TOTAL (test code=ALKP) 112 IUnit/L 45-117 Note change in reference range due to change in reagent. LIPID PROFILE (CORONARY RISK)2018-08-05 08:48:00* Test Item Value Reference Range Comments TRIGLYCERIDES (test code=TRIG) 91 mg/dL 20-150 CHOLESTEROL (test code=CHOL) 118 mg/dL 0-200 CHOLESTEROL/HDL RATIO (test code=CHOLHDL) 2.0 RATIO 0-4.9 RISK ASSOCIATED WITH CHOL/HDL RATIOS: Risk Male Female1/2 AVERAGE 3.43 3.27AVERAGE 4.97 4.442X AVERAGE 9.55 7.053X AVERAGE 23.39 11.04 REFERENCE VALUE IS RELATED TO RISK LEVELS ASRECOMMENDED BY THE [facility]. HEART, LUNG, AND BLOOD INST. HDL CHOLESTEROL (test code=HDL) 46 mg/dL 40-60 LIPOPROTEIN LDL (test code=LDL) 62 mg/dL 100-129 Reference Interval: mg/dL mmol/L Optimal <100 <2.6Near/above optimal 100-129 2.6- 3.3Borderline High 130-159 3.4-4.1High 160-189 4.1-4.9Very High >=190 >=4.9=========This LDL result is a direct measurement.========= [id number] 08:48:00* Test Item Value Reference Range Comments PHOSPHORUS (test code=PHOS) 4.2 mg/dL 2.5-4.9 [id number] 08:48:00* Test Item Value Reference Range Comments MAGNESIUM (test code=MAG) 2.1 mg/dL 1.8-2.4 THYROID STIMULATING [id number] 08:48:00* Test Item Value Reference Range Comments THYROID STIMULATING HORMONE (test code=TSH) 0.027 uIU/mL 0.36-3.74 TSH REFERENCE RANGES: EUTHYROID: 0.35 - 4.3 mIU/mL HYPO : > 5.5 mIU/mL HYPER : < 0.35 mIU/mL COMPREHENSIVE METABOLIC [id number] 08:34:00* Test Item Value Reference Range Comments SODIUM (test code=NA) 143 mmol/L 136-145 POTASSIUM (test code=K) 3.5 mmol/L 3.5-5.1 CHLORIDE (test code=CL) 107.0 mmol/L 98-107 CARBON DIOXIDE (test code=CO2) mmol/L 21-32 ANION GAP (test code=GAP) 10-20 GLUCOSE (test code=GLU) mg/dL 74-106 BLOOD UREA NITROGEN (test code=BUN) mg/dL 7-18 GLOMERULAR FILTRATION RATE (test code=GFR) mL/min >=60 CREATININE (test code=CREAT) mg/dL 0.55-1.02 BUN/CREATININE RATIO (test code=BUN/CREA) 10-20 TOTAL PROTEIN (test code=PROT) gram/dL 6.4-8.2 ALBUMIN (test code=ALB) g/dL 3.4-5.0 GLOBULIN (test code=GLOB) gram/dL 2.7-4.2 ALBUMIN/GLOBULIN RATIO (test code=A/G) 0.75-1.50 CALCIUM (test code=CA) mg/dL 8.5-10.1 BILIRUBIN TOTAL (test code=BILT) mg/dL 0.0-1.0 SGOT/AST (test code=AST) IUnit/L 15-37 SGPT/ALT (test code=ALT) IUnit/L 12-78 ALKALINE PHOSPHATASE TOTAL (test code=ALKP) IUnit/L 45-117 LIPID PROFILE (CORONARY RISK)2018-08-05 08:34:00* Test Item Value Reference Range Comments TRIGLYCERIDES (test code=TRIG) mg/dL 20-150 CHOLESTEROL (test code=CHOL) mg/dL 0-200 CHOLESTEROL/HDL RATIO (test code=CHOLHDL) RATIO 0-4.9 HDL CHOLESTEROL (test code=HDL) mg/dL 40-60 LIPOPROTEIN LDL (test code=LDL) mg/dL 100-129 [id number] 08:34:00* Test Item Value Reference Range Comments PHOSPHORUS (test code=PHOS) mg/dL 2.5-4.9 [id number] 08:34:00* Test Item Value Reference Range Comments MAGNESIUM (test code=MAG) mg/dL 1.8-2.4 THYROID STIMULATING [id number] 08:34:00* Test Item Value Reference Range Comments THYROID STIMULATING HORMONE (test code=TSH) uIU/mL 0.36-3.74 THROMBOPLASTIN TIME [id number] 09:58:00* Test Item Value Reference Range Comments THROMBOPLASTIN TIME PARTIAL (test code=PTT) 98.7 seconds 25.0-36.5 Results called to [id number] by V.[email or web address] 08/04/18 0958Critical results verified and read back by Nurse? Y IS PATIENT ON ANTICOAGULANTS? YLIST ANTICOAGULANTS HEPARIN ASPIRIN P [id number] 02:01:00* Test Item Value Reference Range Comments TROPONIN-I (test code=TROPI) 2.270 ng/mL 0-0.045 RESULT VERIFIED BY REPEAT ANALYSIS THROMBOPLASTIN TIME [id number] 01:55:00* Test Item Value Reference Range Comments THROMBOPLASTIN TIME PARTIAL (test code=PTT) 28.8 seconds 25.0-36.5 IS PATIENT ON ANTICOAGULANTS? NB-TYPE NATRIURETIC [id number] 00:17:00* Test Item Value Reference Range Comments B-TYPE NATRIURETIC PEPTIDE (test code=BNP) 1303.76 pgram/mL 0-100 [id number] 00:12:00* Test Item Value Reference Range Comments TROPONIN-I (test code=TROPI) 2.100 ng/mL 0-0.045 Results called to [id number] by V.LAB.[email or web address] 08/04/18 0007Critical results verified and read back by Nurse? Y COMPREHENSIVE METABOLIC [id number] 23:48:00* Test Item Value Reference Range Comments SODIUM (test code=NA) 140 mmol/L 136-145 POTASSIUM (test code=K) 4.0 mmol/L 3.5-5.1 CHLORIDE (test code=CL) 104.0 mmol/L 98-107 CARBON DIOXIDE (test code=CO2) 28.0 mmol/L 21-32 ANION GAP (test code=GAP) 12.0 10-20 GLUCOSE (test code=GLU) 148 mg/dL 74-106 BLOOD UREA NITROGEN (test code=BUN) 32 mg/dL 7-18 GLOMERULAR FILTRATION RATE (test code=GFR) 36 mL/min >=60 Estimated GFR by using Modified MDRD formula.Chronic kidney disease is defined as either kidney damageor GFR <60 mL/min/1.73 m2 for >3 months. CREATININE (test code=CREAT) 1.40 mg/dL 0.55-1.02 Note change in reference range due to change in reagent. BUN/CREATININE RATIO (test code=BUN/CREA) 22.9 10-20 TOTAL PROTEIN (test code=PROT) 6.2 gram/dL 6.4-8.2 ALBUMIN (test code=ALB) 3.6 g/dL 3.4-5.0 GLOBULIN (test code=GLOB) 2.6 gram/dL 2.7-4.2 ALBUMIN/GLOBULIN RATIO (test code=A/G) 1.4 0.75-1.50 CALCIUM (test code=CA) 8.1 mg/dL 8.5-10.1 BILIRUBIN TOTAL (test code=BILT) 1.20 mg/dL 0.0-1.0 SGOT/AST (test code=AST) 33 IUnit/L 15-37 SGPT/ALT (test code=ALT) 27 IUnit/L 12-78 ALKALINE PHOSPHATASE TOTAL (test code=ALKP) 136 IUnit/L 45-117 Note change in reference range due to change in reagent. - XR CHEST 1 [id number] 23:44:00 FAX: Pauly Chao MD [phone] [place]: [address] St: ADM Name: BARTOLOME SHARPE [facility] : 07/23/18 32 Age/S: 88/F Karen Emery Unit #: [id number] Loc: V.[address] [place] [address] Phys: Pauly Peck MD Acct: [id number] Dis Date: Status: ADM IN PHONE #: [phone] Exam Date: 08/03/2018 234 FAX #: [phone] Reason: CHF EXAMS: CPT CODE: [id number] XR CHEST 1 V 85733 LOCATION: Q15 HISTORY: 88-year-old female who presents with dyspnea. COMMENT: A frontal chest radiograph is obtained at the bedside at 11:35 p.m., and compared to study of February 24, 2018. Again seen is mild, ge neralized cardiac enlargement. The lungs are clear. The cecy and mediastin al anatomy is unremarkable. Calcified right hilar lymph nodes are again se en. The skeleton and soft tissues are unremarkable. Median sternotomy wire s are again noted. Again seen is a left-sided cardiac pacemaker. C ardiac monitoring leads are present. IMPRESSION: There is no radiographic evidence of acute cardiopulmonary disease or significant interval change. at 0229 Reported and signed by: Pedro Pablo Galarza M.D. CC: Pauly Peck MD Technologist: Poly Vaughan Trnscrd Date/Time/By: 08/03/2018 (8903) : By: [email or web address] Orig Print D/T: S: 08/03/2018 (3614) PAGE 1 Signed Report COMPREHENSIVE METABOLIC [id number] 23:37:00* Test Item Value Reference Range Comments SODIUM (test code=NA) 140 mmol/L 136-145 POTASSIUM (test code=K) 4.0 mmol/L 3.5-5.1 CHLORIDE (test code=CL) 104.0 mmol/L 98-107 CARBON DIOXIDE (test code=CO2) mmol/L 21-32 ANION GAP (test code=GAP) 10-20 GLUCOSE (test code=GLU) mg/dL 74-106 BLOOD UREA NITROGEN (test code=BUN) mg/dL 7-18 GLOMERULAR FILTRATION RATE (test code=GFR) mL/min >=60 CREATININE (test code=CREAT) mg/dL 0.55-1.02 BUN/CREATININE RATIO (test code=BUN/CREA) 10-20 TOTAL PROTEIN (test code=PROT) gram/dL 6.4-8.2 ALBUMIN (test code=ALB) g/dL 3.4-5.0 GLOBULIN (test code=GLOB) gram/dL 2.7-4.2 ALBUMIN/GLOBULIN RATIO (test code=A/G) 0.75-1.50 CALCIUM (test code=CA) mg/dL 8.5-10.1 BILIRUBIN TOTAL (test code=BILT) mg/dL 0.0-1.0 SGOT/AST (test code=AST) IUnit/L 15-37 SGPT/ALT (test code=ALT) IUnit/L 12-78 ALKALINE PHOSPHATASE TOTAL (test code=ALKP) IUnit/L 45-117 CBC W/AUTO [id number] 23:27:00* Test Item Value Reference Range Comments WHITE BLOOD CELL (test code=WBC) 7.5 K/mm3 4.5-12.5 RED BLOOD CELL (test code=RBC) 4.21 mill/mm3 3.7-5.2 HEMOGLOBIN (test code=HGB) 11.3 gram/dL 11.5-15.5 HEMATOCRIT (test code=HCT) 37.1 % 36.0-46.0 MEAN CELL VOLUME (test code=MCV) 88.1 fL 80-98 MEAN CELL HGB (test code=MCH) 26.8 picogram 27.0-33.0 MEAN CELL HGB CONCETRATION (test code=MCHC) 30.5 gram/dL 33.0-36.0 RED CELL DISTRIBUTION WIDTH (test code=RDW) 15.3 % 11.6-16.2 RED CELL DISTRIBUTION WIDTH SD (test code=RDW-SD) 49.4 fL 37.0-51.0 PLATELET COUNT (test code=PLT) 132 K/mm3 150-450 MEAN PLATELET VOLUME (test code=MPV) 10.4 fL 6.7-11.0 NEUTROPHIL % (test code=NT%) 92.7 % 39.0-69.0 IMMATURE GRANULOCYTE % (test code=IG%) 0.5 % 0.0-5.0 LYMPHOCYTE % (test code=LY%) 3.6 % 25.0-55.0 MONOCYTE % (test code=MO%) 2.7 % 0.0-10.0 EOSINOPHIL % (test code=EO%) 0.4 % 0.0-5.0 BASOPHIL % (test code=BA%) 0.1 % 0.0-1.0 NUCLEATED RBC % (test code=NRBC%) 0.0 % 0-0 NEUTROPHIL # (test code=NT#) 6.90 K/mm3 1.8-7.7 IMMATURE GRANULOCYTE # (test code=IG#) 0.04 x10 3/uL 0-0.03 LYMPHOCYTE # (test code=LY#) 0.27 K/mm3 1.0-5.0 MONOCYTE # (test code=MO#) 0.20 K/mm3 0-0.8 EOSINOPHIL # (test code=EO#) 0.03 K/mm3 0.0-0.5 BASOPHIL # (test code=BA#) 0.01 K/mm3 0.0-0.2 NUCLEATED RBC # (test code=NRBC#) 0.00 K/mm3 0.0-0.1 CBC W/AUTO [id number] 23:26:00* Test Item Value Reference Range Comments WHITE BLOOD CELL (test code=WBC) K/mm3 4.5-12.5 RED BLOOD CELL (test code=RBC) mill/mm3 3.7-5.2 HEMOGLOBIN (test code=HGB) gram/dL 11.5-15.5 HEMATOCRIT (test code=HCT) 37.1 % 36.0-46.0 MEAN CELL VOLUME (test code=MCV) fL 80-98 MEAN CELL HGB (test code=MCH) picogram 27.0-33.0 MEAN CELL HGB CONCETRATION (test code=MCHC) gram/dL 33.0-36.0 RED CELL DISTRIBUTION WIDTH (test code=RDW) % 11.6-16.2 RED CELL DISTRIBUTION WIDTH SD (test code=RDW-SD) fL 37.0-51.0 PLATELET COUNT (test code=PLT) K/mm3 150-450 MEAN PLATELET VOLUME (test code=MPV) fL 6.7-11.0 NEUTROPHIL % (test code=NT%) % 39.0-69.0 IMMATURE GRANULOCYTE % (test code=IG%) % 0.0-5.0 LYMPHOCYTE % (test code=LY%) % 25.0-55.0 MONOCYTE % (test code=MO%) % 0.0-10.0 EOSINOPHIL % (test code=EO%) % 0.0-5.0 BASOPHIL % (test code=BA%) % 0.0-1.0 NEUTROPHIL # (test code=NT#) K/mm3 1.8-7.7 LYMPHOCYTE # (test code=LY#) K/mm3 1.0-5.0 MONOCYTE # (test code=MO#) K/mm3 0-0.8 EOSINOPHIL # (test code=EO#) K/mm3 0.0-0.5 BASOPHIL # (test code=BA#) K/mm3 0.0-0.2
--- NOTE | 2018-10-08 09:00 | NUR ---
RECEIVED PT INTO ER 3 VIA [facility]. PT AA&OX2. AT BASELINE. S/P FALL AT MED RESORT. NO LOC. PT GOWNED AND PLACED ON MONITOR. USED THE BEDPAN SHORTLY AFTER ARRIVAL. FAMILY AT BEDSIDE
--- NOTE | 2018-10-08 09:05 | NUR ---
SMALL AMOUNT FOUL SMELLING TEA COLORED URINE WITH BLOOD CLOTS.
[2018-10-08] MEDS ORDERED: SODIUM CHLORIDE 0.9% 1000ML 1,000 ML IV STA (09:53)
[2018-10-08] MEDS ORDERED: CEFTRIAXONE SOD 1 GM/NS 50 ML 50 ML IV ONE (10:00)
--- NOTE | 2018-10-08 11:10 | NUR ---
NOTIFIED DR. MATA THAT WE HAVE BEEN UNSUCESSFUL SO FAR OBTAINING AN IV AND BLOOD. PT IS A VERY DIFFICULT STICK. SHE HAS VERY SMALL VEINS. I ATTEMPTED ONCE AND NURSE HYUN MACIAS ATTEMPTED BUT BOTH OF US WERE UNSUCESSFUL. SON SAYS THEY USUALLY HAVE TO USE AN ULTRASOUND. AL ORDAZ GOING IN NOW TO ATTEMPT
--- NOTE | 2018-10-08 11:20 | NUR ---
AL ORDAZ SUCCESSFUL WITH THE IV. 22 GAUGE PLACED IN RIGHT HAND AND BLOOD OBTAINED.
[2018-10-08 11:38] LABS: BILIRUBIN,URINE NEGATIVE (NEGATIVE); CLARITY,URINE SL CLOUDY (CLEAR); COLOR,URINE RED (YELLOW); KETONES,URINE NEGATIVE (NEGATIVE); NITRITE,URINE POSITIVE (NEGATIVE); PROTEIN,URINE DIPSTICK 2+ (NEGATIVE); URINE UROBILINOGEN 1 mg/dL (0.2 - 1)
[2018-10-08 11:40] LABS: BACTERIA,URINE MODERATE /HPF; EPITHELIAL CELLS,URINE RARE /LPF; LEUKOCYTE ESTERASE ,URINE 1+ (NEGATIVE); RBC,URINE >50 /HPF (0-5)
[2018-10-08 11:46] LABS: BASOPHILS % 0.3 % (0.0-1.0); EOSINOPHILS # (AUTO) 0.1 (0.0-0.4); HEMATOCRIT 33.8 % (34.2-44.1); LYMPHOCYTES # (AUTO) 0.2 (1.0-3.2); LYMPHOCYTES % 6.1 % (18.0-39.1); MEAN CORPUSCULAR HGB CONC 29.6 g/dL (31-35); MONOCYTES # (AUTO) 0.4 (0.2-0.8); MONOCYTES % 10.5 % (4.4-11.3); NEUTROPHILS # (AUTO) 2.9 (2.1-6.9); NEUTROPHILS % 79.5 % (38.7-80.0); PLATELET COUNT 157 x10e3/uL (140-360); RED BLOOD COUNT 3.45 x10e6/uL (3.6-5.1); RED CELL DISTRIBUTION WIDTH 21.7 % (11.7-14.4)
[2018-10-08 11:55] LABS: INR 1.04; PROTHROMBIN TIME 14.1 seconds (11.9-14.5)
[2018-10-08 11:56] LABS: PARTIAL THROMBOPLASTIN TIME 28.2 seconds (23.8-35.5)
[2018-10-08 12:00] LABS: ANION GAP 12.8 mmol/L (8-16); CALCIUM 8.6 mg/dL (8.4-10.2); CREATININE, SERUM 1.18 mg/dL (0.57-1.11); POTASSIUM 3.8 mmol/L (3.5-5.1)
[2018-10-08 12:38] VITALS: BP 137/78
== END 2018-10-08 13:51 | disposition home or self-care (01) ==
LOC: ER 08:54
DX: N30.01 Acute cystitis with hematuria (principal); W06.XXXA Fall from bed, initial encounter; Z91.81 History of falling; Y93.89 Activity, other specified; Y92.122 Bedroom in nursing home as the place of occurrence of the external cause; Z98.890 Other specified postprocedural states; I10 Essential (primary) hypertension; I48.91 Unspecified atrial fibrillation; I25.10 Atherosclerotic heart disease of native coronary artery without angina pectoris; E78.5 Hyperlipidemia, unspecified
CPT/HCPCS: 36415; 80048; 81001; 85025; 85610; 85730; 87086; 87186; 93005; 99283; J0696; J7030